=== PATIENT | male | born 1955 | race Caucasian/White ===

== ENCOUNTER 2016-08-31 09:40 | Outpatient (CLI) | payer MEDICAID ==
[2016-08-31 14:12] VITALS: BP 146/94
--- NOTE | 2016-08-31 14:14 | CARDIAC PROCEDURE NOTE ---
DATE OF SERVICE: 08/31/2016 00:00:00 PRIMARY CARE PHYSICIAN: YAMILETH Ellis. PROCEDURE: Treadmill stress test. PROCEDURE SYMPTOMS: Chest pain and dyspnea on exertion. CARDIAC RISK FACTORS: Age, hypertension, hyperlipidemia. PREVIOUS CARDIAC PROCEDURES: None. CURRENT SYMPTOMATOLOGY: The patient has COPD and we had him use albuterol inhaler prior to the start of test. CLINICAL HISTORY: A 61-year-old male without known coronary artery disease. INITIAL RESTING VITAL SIGNS: Blood pressure 182/96. Recheck 146/94, heart rate 76, height 70 inches, weight 261 pounds, BMI 37.5. PROCEDURE AND FINDINGS: The patient's identity and date verified. Consent signed. The patient performed treadmill exercise using a Osmin protocol completing 3 minutes, 36 seconds and completing an estimated work load of less than 4.5 metabolic equivalents. Maximal blood pressure was 210/98 mmHg with a heart rate of 115 beats per minute or 72% of maximum predicted heart rate for age. The blood pressure response to exercise was elevated. The patient stopped because of significant dyspnea. It took several minutes for his breathing to return to normal. The resting ECG demonstrated normal sinus rhythm with no abnormalities. Maximal ST segment depression was less than 0.5 mm and upsloping. He had an occasional PAC. FINAL IMPRESSION 1. No ST segment depression. 2. No chest pain. 3. Occasional premature atrial contraction (PAC). 4. Inadequate test. The patient failed to achieve 80-85% maximal heart rate due to dyspnea. Recommend pharmaceutical stress test. JOB #: [id number] EXT JOB #:[id number] [facility]
--- NOTE | 2016-09-22 13:05 | XRAY Report ---
There was no imaging performed for this exam. Procedure notes and results available in the EMR. CRISTI
== END 2016-08-31 09:41 | disposition home or self-care (01) ==
LOC: DI 09:40
PROVIDERS: ATTEND Nurse Practitioner Family
DX: I49.9 Cardiac arrhythmia, unspecified (principal); I10 Essential (primary) hypertension; E78.5 Hyperlipidemia, unspecified; J44.9 Chronic obstructive pulmonary disease, unspecified
CPT/HCPCS: 93017

== ENCOUNTER 2016-10-12 09:16 | Outpatient (CLI) | payer MEDICAID ==
--- NOTE | 2016-10-12 15:06 | CARDIAC PROCEDURE NOTE ---
DATE OF SERVICE: 10/12/2016 00:00:00 PRIMARY CARE PHYSICIAN: YAMILETH Ellis PROCEDURE: Pharmacologic stress test. PROCEDURE SYMPTOMS: Dyspnea on exertion and chest pain. CARDIAC RISK FACTORS: Include age and former smoker. PREVIOUS CARDIAC PROCEDURES: Include 08/31/2016 non-diagnostic exercise tolerance test in which the patient was unable to achieve 75% of maximum heart rate due to dyspnea. CURRENT SYMPTOMS: COPD without resting dyspnea and did not bring in inhaler. CLINICAL HISTORY: A 61-year-old male without known coronary artery disease. INITIAL RESTING VITAL SIGNS: Blood pressure 170/110, heart rate 71, height 70 inches, weight 261, BMI 37.5. PROCEDURE AND FINDINGS: Patient identity and date verified. Consent signed. Safety stop. Pharmacologic stress testing was performed with Lexiscan at a dose of 0.4 mg over 10 seconds. The heart rate increased to 88 beats per minute and blood pressure response was normal with blood pressure lowering to 142/96 during the stress procedure. The patient developed symptoms of nausea and acute dyspnea without wheezing. This subsided spontaneously over 5 minutes. The resting ECG demonstrated normal sinus rhythm with no abnormalities. Maximum ST segment depression was 0. No ectopy was seen. FINAL IMPRESSION 1. Negative stress electrocardiogram for ischemia by electrocardiographic criteria. 2. Equivocal stress test clinically for angina. 3. No ectopy. 4. Await myocardial perfusion scan results. JOB #: [id number] EXT JOB #:[id number] [facility]
--- NOTE | 2016-10-12 15:37 | Nuclear Medicine Report ---
EXAM: SINGLE-ISOTOPE PHARMACOLOGICAL STRESS TEST WITH REGADENOSON. SINGLE-ISOTOPE AND TWO-DAY REST/STRESS M YOCARDIAL PERFUSION SCANS WITH TOMOGRAPHIC IMAGING, QUANTITATIVE ANALYSIS, WALL MOTION ANALYSIS AND C ALCULATION OF EJECTION FRACTION. EXAM DATE: 10/12/2016 10:48 AM. CLINICAL HISTORY: Arrhythmia. COMPARISON: Prior chest CT, January 2014. TECHNIQUE: A pharmacological stress was performed with the infusion of 0.4 mg regadenoson per protocol. Accordin g to protocol, 10 mCi of Tc-99m sestamibi was injected for stress myocardial perfusion scan. Motion c orrection was applied when appropriate. The following day after the intravenous administration of 41 mCi of Tc-99m sestamibi, a rest myocardi al perfusion scan was done with tomography. Motion correction was applied when appropriate. Gated tomographic images were obtained for wall motion analysis and computation of left ventricular e jection fraction. FINDINGS: Stress perfusion images demonstrate no fixed or reversible perfusion defects. No other convincing perfusion abnormalities. No convincing evidence of transient ischemic dilatation. Wall motion analysis demonstrates normal The left ventricular end-diastolic volume is 112 cc. The left ventricular end-systolic volume is 45 c c. The left ventricular ejection fraction is calculated to be 60%. IMPRESSION: 1. No scintigraphic findings to indicate myocardial ischemia. Negative for infarct. 2. Left ventricular ejection fraction of 60%. 3. Normal segmental and global wall motion. 4. Normal left ventricular cavity size, no change with stress. [facility] Referring Provider Line: [phone] SITE ID: [id number]
== END 2016-10-12 09:17 | disposition home or self-care (01) ==
LOC: DI 09:16
PROVIDERS: ATTEND Nurse Practitioner Family
DX: I49.9 Cardiac arrhythmia, unspecified (principal)
CPT/HCPCS: 78452; 93017; A9500

== ENCOUNTER 2016-10-16 09:15 | Outpatient (CLI) | payer MEDICAID | END 2016-10-16 09:16 | disposition home or self-care (01) | LOC: LAB.S 09:15 | PROVIDERS: ATTEND Nurse Practitioner Family | DX: I10 Essential (primary) hypertension (principal) | CPT/HCPCS: 36415; 84132 ==

== ENCOUNTER 2017-01-15 08:26 | Outpatient (CLI) | payer MEDICAID ==
[2017-01-15 18:02] LABS: BASOPHILS # (AUTO) 0.1 10^3/uL (0.0-0.1); BASOPHILS % (AUTO) 0.8 %; EOSINOPHILS # (AUTO) 0.5 10^3/uL (0.0-0.7); EOSINOPHILS % (AUTO) 6.7 %; HCT - HEMATOCRIT 48.9 % (42.0-52.0); LYMPHOCYTES # (AUTO) 2.2 10^3/uL (1.5-3.5); LYMPHOCYTES % (AUTO) 27.1 %; MEAN CORPUSCULAR HEMOGLOBIN 29.6 pg (27.0-31.0); MEAN CORPUSCULAR HGB CONC 32.6 g/dL (32.0-36.0); MEAN CORPUSCULAR VOLUME 90.7 fL (80.0-94.0); MEAN PLATELET VOLUME 9.5 fL (7.4-11.4); MONOCYTES # (AUTO) 0.7 10^3/uL (0.0-1.0); MONOCYTES % (AUTO) 8.3 %; NEUTROPHILS # (AUTO) 4.7 10^3/uL (1.5-6.6); NEUTROPHILS % (AUTO) 57.1 %; NUCLEATED RED BLOOD CELLS AUTO 0.2 /100WBC; RED BLOOD COUNT 5.39 10^6/uL (4.70-6.10); RED CELL DISTRIBUTION WIDTH 14.5 % (12.0-15.0); UNCORRECTED WHITE BLOOD COUNT 8.2 x10^3/uL; WHITE BLOOD COUNT 8.2 x10^3/uL (4.8-10.8)
[2017-01-15 18:29] LABS: ALBUMIN/GLOBULIN RATIO 1.2 (1.0-2.2); BILIRUBIN,TOTAL 0.4 mg/dL (0.2-1.0); BUN - BLOOD UREA NITROGEN 16 mg/dL (6-20); CALCIUM 8.9 mg/dL (8.5-10.3); CARBON DIOXIDE - CO2 24 mmol/L (21-32); CHLORIDE 107 mmol/L (101-111); CHOL/HDL RATIO 4.2 (<5.0); CHOLESTEROL 161 mg/dL; CREATININE 0.9 mg/dL (0.6-1.2); GFR - MDRD 86 (>89); GLUCOSE 99 mg/dL (70-100); HDL CHOLESTEROL 38 mg/dL; LDL/HDL RATIO 2.7 (<3.6); POTASSIUM 4.2 mmol/L (3.5-5.0); SODIUM 140 mmol/L (135-145); TOTAL PROTEIN 7.3 g/dL (6.7-8.2); TRIGLYCERIDES 94 mg/dL; VLDL CHOLESTEROL 19 mg/dL
== END 2017-01-15 08:27 | disposition home or self-care (01) ==
LOC: LAB.S 08:26
PROVIDERS: ATTEND Nurse Practitioner Family
DX: I10 Essential (primary) hypertension (principal)
CPT/HCPCS: 36415; 80053; 80061; 84443; 85025

== ENCOUNTER 2017-03-27 10:32 | Emergency (ER) | payer MEDICAID ==
[2017-03-27] MEDS ORDERED: IPRATROPIUM/ALBUTEROL 3 ML NEB INH STA (12:24)
[2017-03-27] MEDS ORDERED: predniSONE 20 MG TABLET PO STA (12:28)
[2017-03-27] MEDS ORDERED: DOXYCYCLINE 100 MG TABLET PO STA (12:28)
--- NOTE | 2017-03-27 12:30 | ED Physician Documentation ---
PD HPI DYSPNEA - Stated complaint Stated Complaint: DIFFICULTY BREATHING - Chief complaint Chief Complaint: Resp - History obtained from History obtained from: Patient - History of Present Illness Timing - onset: Other (History of COPD from smoking, no longer smokes. At baseline he uses a long-acting beta agonist as well as a rescue inhaler. Over the last 2 days he developed a productive cough of clear sputum with increasing shortness of breath especially at night and when flat but not associated with fevers, chest pain, or pedal edema.) Review of Systems Constitutional: denies: Fever, Chills Nose: denies: Rhinorrhea / runny nose, Congestion Cardiac: denies: Chest pain / pressure, Palpitations Respiratory: reports: Dyspnea, Cough GI: denies: Abdominal Pain PD PAST MEDICAL HISTORY - Past Medical History Cardiovascular: Hypertension, High cholesterol Respiratory: Asthma, Emphysema, Sleep apnea Neuro: None Endocrine/Autoimmune: None GI: None : None HEENT: None Psych: None Musculoskeletal: Chronic back pain Derm: Psoriasis - Past Surgical History Past Surgical History: No - Present Medications Home Medications: Ambulatory Orders Medication Instructions Recorded Confirmed Doxycycline Hyclate 100 mg PO BID #14 tablet 03/27/17 predniSONE [Deltasone] 60 mg PO DAILY 5 Days tablet 03/27/17 - Allergies Allergies/Adverse Reactions: Allergies Allergy/AdvReac Type Severity Reaction Status Date / Time latex Allergy Unknown Verified 03/27/17 10:41 pollen extracts Allergy Respiratory Verified 03/27/17 10:41 - Social History Does the pt smoke?: No Smoking Status: Former smoker Does the pt drink ETOH?: No Does the pt have substance abuse?: No - Immunizations Immunizations are current?: Yes - POLST Patient has POLST: No PD ED PE NORMAL - Vitals Vital signs reviewed: Yes - General General: Alert and oriented X 3, No acute distress - HEENT HEENT: PERRL, EOMI - Neck Neck: Supple, no meningeal sign, No bony TTP - Cardiac Cardiac: RRR, No murmur - Respiratory Respiratory: No respiratory distress, Other (Wheezes and rhonchi throughout with moderate air motion) - Abdomen Abdomen: Non tender - Extremities Extremities: No edema, No calf tenderness / cord - Neuro Neuro: Alert and oriented X 3 - Psych Psych: Normal mood, Normal affect Results - Vitals Vitals: Vital Signs - 24 hr 03/27/17 03/27/17 10:35 12:44 Temperature 36.5 C Heart Rate 100 96 Respiratory 32 H 22 Rate Blood Pressure 164/108 H O2 Saturation 92 Oxygen O2 Source Room air Oxygen Flow Rate 2 - Rads (name of study) 2v chest Radiology: EMP read contemporaneously (stable hyperinflation, NAD) PD MEDICAL DECISION MAKING - ED course ED course: 61-year-old gentleman presents with COPD exacerbation. Examination and symptoms much improved after a DuoNeb here without hypoxemia or tachycardia. Departure - Departure Disposition: 01 Home, Self Care Clinical Impression: COPD exacerbation Condition: Good Record reviewed to determine appropriate education?: Yes Instructions: ED COPD Flare Prescriptions: Doxycycline Hyclate 100 mg PO BID #14 tablet predniSONE [Deltasone] 60 mg PO DAILY 5 Days tablet Comments: Call your doctor to arrange a follow-up appointment, make the next available appointment. In the interim, return anytime if worse or if new symptoms develop. Your blood pressure was elevated today on check into the emergency department. This does not mean that you have hypertension, it is a common phenomenon to come to the emergency department and have elevated blood pressure. I recommend that you see your primary care physician within the week to have it rechecked when you are feeling better.
--- NOTE | 2017-03-27 12:36 | XRAY Report ---
EXAM: CHEST RADIOGRAPHY EXAM DATE: 03/27/2017 12:24 PM. CLINICAL HISTORY: SOB. COMPARISON: 01/01/2014. TECHNIQUE: 2 views. FINDINGS: Lungs/Pleura: No focal opacities evident. No pleural effusion. No pneumothorax. Stable mild bilateral hyperinflation.. Mediastinum: Heart and mediastinal contours are unremarkable. Other: Thoracic spondylosis redemonstrated. IMPRESSION: 1. No definite acute abnormality of the chest. 2. Stable mild pulmonary hyperinflation. [facility] Referring Provider Line: [phone] SITE ID: [id number]
--- NOTE | 2017-03-27 12:36 | XRAY Preliminary Report ---
Exam: XR CHEST 2 VIEW X-RAY IMPRESSION: 1. No definite acute abnormality of the chest. 2. Stable mild pulmonary hyperinflation. [facility] SITE ID[id number]
[2017-03-27 13:08] VITALS: BP 115/99
== END 2017-03-27 13:12 | disposition home or self-care (01) ==
LOC: ED 10:32
DX: J44.1 Chronic obstructive pulmonary disease with (acute) exacerbation (principal); I10 Essential (primary) hypertension; E78.00 Pure hypercholesterolemia, unspecified; Z87.891 Personal history of nicotine dependence
CPT/HCPCS: 71046; 94640; 99283; 99284; A9270; J7512; J7620

== ENCOUNTER 2018-01-28 09:55 | Outpatient (CLI) | payer MEDICAID ==
[2018-01-28 18:41] LABS: CHOL/HDL RATIO 5.1 (<5.0); CHOLESTEROL 193 mg/dL; HDL CHOLESTEROL 38 mg/dL; LDL CHOLESTEROL,CALCULATED 131 mg/dL; LDL/HDL RATIO 3.4 (<3.6); VLDL CHOLESTEROL 24 mg/dL
== END 2018-01-28 23:59 | disposition home or self-care (01) ==
LOC: LAB.S 09:55
PROVIDERS: ATTEND Nurse Practitioner Family
DX: E78.5 Hyperlipidemia, unspecified (principal)
CPT/HCPCS: 36415; 80061; 83721

== ENCOUNTER 2018-09-30 11:33 | Emergency (ER) | payer MEDICAID ==
[2018-09-30] MEDS ORDERED: ALBUTEROL NEB 2.5 MG/3 ML INH STA (12:21)
--- NOTE | 2018-09-30 12:21 | ED Physician Documentation ---
PD HPI DYSPNEA - Stated complaint Stated Complaint: SOA - Chief complaint Chief Complaint: Resp - History obtained from History obtained from: Patient - History of Present Illness Timing - onset: Other (He has H/O COPD and ran out of Brio and albuterol nebulizer b/s of confusion at pharmacy and troubles with insurance. Now increase cough, dyspnea on exertion. No URI sx, no fevers/chills or CP.) Review of Systems Constitutional: denies: Fever, Chills Throat: denies: Dental pain / toothache, Sore throat Cardiac: denies: Chest pain / pressure, Palpitations, Pedal edema, Calf pain Respiratory: reports: Dyspnea, Cough. denies: Hemoptysis, Wheezing GI: denies: Abdominal Pain PD PAST MEDICAL HISTORY - Past Medical History Cardiovascular: Hypertension, High cholesterol Respiratory: Asthma, Emphysema, Sleep apnea Endocrine/Autoimmune: None GI: None : None HEENT: None Psych: None Musculoskeletal: Chronic back pain Derm: Psoriasis - Past Surgical History Past Surgical History: No - Present Medications Home Medications: Ambulatory Orders Medication Instructions Recorded Confirmed Doxycycline Hyclate 100 mg PO BID #14 tablet 03/27/17 predniSONE [Deltasone] 60 mg PO DAILY 5 Days tablet 03/27/17 Albuterol 2.5 mg INH Q4H PRN #30 neb 09/30/18 - Allergies Allergies/Adverse Reactions: Allergies Allergy/AdvReac Type Severity Reaction Status Date / Time latex Allergy Unknown Verified 09/30/18 11:44 pollen extracts Allergy Respiratory Verified 09/30/18 11:44 - Social History Does the pt smoke?: Yes Smoking Status: Former smoker Does the pt drink ETOH?: No Does the pt have substance abuse?: No - Family History Family history: reports: Non contributory - Immunizations Immunizations are current?: Yes - POLST Patient has POLST: No PD ED PE NORMAL - Vitals Vital signs reviewed: Yes - General General: Alert and oriented X 3, No acute distress - HEENT HEENT: PERRL, EOMI - Neck Neck: Supple, no meningeal sign, No bony TTP - Cardiac Cardiac: RRR, No murmur - Respiratory Respiratory: Other (slightly tachypneic, mildly rhonchorous and wheezy) - Abdomen Abdomen: Soft, Non tender - Back Back: No CVA TTP, No spinal TTP - Extremities Extremities: No edema, No calf tenderness / cord - Neuro Neuro: Alert and oriented X 3, Normal speech Results - Vitals Vitals: Vital Signs - 24 hr 09/30/18 09/30/18 11:38 11:57 Temperature 36.3 C L Heart Rate 75 72 Respiratory 24 21 Rate Blood Pressure 112/97 H 122/85 H O2 Saturation 97 95 Oxygen O2 Source Room air PD MEDICAL DECISION MAKING - ED course ED course: Lux has the brio and is ready to pickup He needed the albuterol which was written for. Departure - Departure Disposition: 01 Home, Self Care Clinical Impression: COPD exacerbation Condition: Good Record reviewed to determine appropriate education?: Yes Instructions: COPD Dc Prescriptions: Albuterol 2.5 mg INH Q4H PRN #30 neb PRN Reason: Wheezing Comments: Call your doctor to arrange a follow-up appointment, make the next available appointment. In the interim, return anytime if worse or if new symptoms develop.
[2018-09-30 13:29] VITALS: BP 127/73
== END 2018-09-30 13:15 | disposition home or self-care (01) ==
LOC: ED 11:33
DX: J44.1 Chronic obstructive pulmonary disease with (acute) exacerbation (principal); I10 Essential (primary) hypertension; Z87.891 Personal history of nicotine dependence
CPT/HCPCS: 99283

== ENCOUNTER 2019-03-06 16:35 | Outpatient (CLI) | payer MEDICAID ==
--- NOTE | 2019-03-07 08:44 | XRAY Report ---
Reason: BACK PAIN W/RADICULOPATHY Procedure Date: 03/06/2019 Accession Number: [id number] / [id number] Procedure: XR - Lumbar Spine Complete CPT Code: Final Report FULL RESULT: EXAM: LUMBOSACRAL SPINE RADIOGRAPHY EXAM DATE: 03/06/2019 04:58 PM. CLINICAL HISTORY: Back pain w/radiculopathy. COMPARISONS: None. TECHNIQUE: 5 views. FINDINGS: Alignment: Slight dextroscoliosis of the mid lower lumbar spine. Grade 1 anterolisthesis of L4 on L5 measuring 3 mm. Bones: Five [id number] lumbar vertebral bodies are present. No acute fracture or bony lesion. Multilevel degenerative osteophyte formation with bridging along the anterior and right lateral aspect of L1-L2 and L2-L3. Disks: Mild to moderate multilevel disk space narrowing throughout the lumbar spine, greatest at L2-L3, L4-L5 and L5-S1. Facets: Moderate to marked lumbar facet arthropathy. Sacroiliac Joints: Mild degenerative changes. Soft Tissues: No bowel obstruction. Lung bases are clear. IMPRESSION: 1. Mild to moderate multilevel intervertebral disk degenerative changes of the lumbar spine. 2. Grade 1 anterolisthesis of L4 on L5 likely due to facet arthropathy. 3. Lumbar facet arthropathy. [facility]
== END 2019-03-06 16:36 | disposition home or self-care (01) ==
LOC: DI 16:35
PROVIDERS: ATTEND Family Medicine
DX: M51.36 Other intervertebral disc degeneration, lumbar region (principal); M51.37 Other intervertebral disc degeneration, lumbosacral region; M47.816 Spondylosis without myelopathy or radiculopathy, lumbar region; M43.16 Spondylolisthesis, lumbar region
CPT/HCPCS: 72110

== ENCOUNTER 2020-02-23 08:57 | Outpatient (CLI) | payer MEDICAID ==
[2020-02-23 15:32] LABS: BASOPHILS # (AUTO) 0.1 10^3/uL (0.0-0.1); BASOPHILS % (AUTO) 0.5 %; EOSINOPHILS # (AUTO) 0.9 10^3/uL (0.0-0.7); EOSINOPHILS % (AUTO) 9.4 %; HGB - HEMOGLOBIN 15.3 g/dL (14.0-18.0); LYMPHOCYTES # (AUTO) 2.2 10^3/uL (1.5-3.5); LYMPHOCYTES % (AUTO) 23.8 %; MEAN CORPUSCULAR HEMOGLOBIN 29.4 pg (27.0-31.0); MEAN CORPUSCULAR HGB CONC 30.9 g/dL (32.0-36.0); MEAN PLATELET VOLUME 11.3 fL (7.4-11.4); MONOCYTES # (AUTO) 0.8 10^3/uL (0.0-1.0); NEUTROPHILS # (AUTO) 5.2 10^3/uL (1.5-6.6); NEUTROPHILS % (AUTO) 56.3 %; PLT - PLATELET COUNT 261 10^3/uL (130-450); RED BLOOD COUNT 5.21 10^6/uL (4.70-6.10); RED CELL DISTRIBUTION WIDTH 15.2 % (12.0-15.0); WHITE BLOOD COUNT 9.2 x10^3/uL (4.8-10.8)
[2020-02-23 16:06] LABS: ALBUMIN/GLOBULIN RATIO 1.1 (1.0-2.2); ALKALINE PHOSPHATASE 78 IU/L (42-121); ALT ALANINE AMINOTRANSFERASE 33 IU/L (10-60); AST ASPARTATE AMINOTRANSFERASE 23 IU/L (10-42); BILIRUBIN,TOTAL 0.4 mg/dL (0.2-1.0); BUN - BLOOD UREA NITROGEN 21 mg/dL (6-20); CARBON DIOXIDE - CO2 24 mmol/L (21-32); CHLORIDE 107 mmol/L (101-111); CHOL/HDL RATIO 4.1 (<5.0); CHOLESTEROL 161 mg/dL; CREATININE 1.1 mg/dL (0.6-1.2); GLUCOSE 129 mg/dL (70-100); HDL CHOLESTEROL 39 mg/dL; LDL CHOLESTEROL,CALCULATED 93 mg/dL; LDL/HDL RATIO 2.4 (<3.6); SODIUM 140 mmol/L (135-145); TOTAL PROTEIN 7.6 g/dL (6.7-8.2); VLDL CHOLESTEROL 29 mg/dL
[2020-02-23 20:14] LABS: HEMOGLOBIN A1c% 6.2 % (4.27-6.07)
== END 2020-02-23 08:58 | disposition home or self-care (01) ==
LOC: LAB.S 08:57
PROVIDERS: ATTEND Family Medicine
DX: K29.70 Gastritis, unspecified, without bleeding (principal); M19.90 Unspecified osteoarthritis, unspecified site; L40.9 Psoriasis, unspecified; L40.50 Arthropathic psoriasis, unspecified; J44.9 Chronic obstructive pulmonary disease, unspecified; E78.5 Hyperlipidemia, unspecified; G47.33 Obstructive sleep apnea (adult) (pediatric); E88.81 Metabolic syndrome and other insulin resistance
CPT/HCPCS: 36415; 80053; 80061; 83036; 83721; 84153; 84443; 85025

== ENCOUNTER 2020-06-30 10:49 | Outpatient (CLI) | payer MEDICARE, MEDICAID ==
[2020-06-30 14:48] LABS: BASOPHILS % (AUTO) 0.4 %; EOSINOPHILS # (AUTO) 0.5 10^3/uL (0.0-0.7); EOSINOPHILS % (AUTO) 5.2 %; HCT - HEMATOCRIT 48.4 % (42.0-52.0); HGB - HEMOGLOBIN 15.6 g/dL (14.0-18.0); LYMPHOCYTES # (AUTO) 2.5 10^3/uL (1.5-3.5); LYMPHOCYTES % (AUTO) 25.9 %; MEAN CORPUSCULAR HEMOGLOBIN 29.7 pg (27.0-31.0); MEAN CORPUSCULAR HGB CONC 32.2 g/dL (32.0-36.0); MEAN CORPUSCULAR VOLUME 92.2 fL (80.0-94.0); MEAN PLATELET VOLUME 10.6 fL (7.4-11.4); MONOCYTES # (AUTO) 0.6 10^3/uL (0.0-1.0); MONOCYTES % (AUTO) 5.9 %; NEUTROPHILS # (AUTO) 5.9 10^3/uL (1.5-6.6); NEUTROPHILS % (AUTO) 62.1 %; PLT - PLATELET COUNT 256 10^3/uL (130-450); RED BLOOD COUNT 5.25 10^6/uL (4.70-6.10); RED CELL DISTRIBUTION WIDTH 14.7 % (12.0-15.0); WHITE BLOOD COUNT 9.5 x10^3/uL (4.8-10.8)
[2020-06-30 15:14] LABS: ALBUMIN 4.2 g/dL (3.2-5.5); ALBUMIN/GLOBULIN RATIO 1.2 (1.0-2.2); ALKALINE PHOSPHATASE 61 IU/L (42-121); ALT ALANINE AMINOTRANSFERASE 41 IU/L (10-60); AST ASPARTATE AMINOTRANSFERASE 25 IU/L (10-42); BILIRUBIN,TOTAL 0.6 mg/dL (0.2-1.0); BUN - BLOOD UREA NITROGEN 23 mg/dL (6-20); CALCIUM 9.2 mg/dL (8.5-10.3); CARBON DIOXIDE - CO2 24 mmol/L (21-32); CHLORIDE 106 mmol/L (101-111); CREATININE 0.9 mg/dL (0.6-1.2); GFR - MDRD 85 (>89); GLUCOSE 119 mg/dL (70-100); POTASSIUM 4.2 mmol/L (3.5-5.0); SODIUM 138 mmol/L (135-145); TOTAL PROTEIN 7.7 g/dL (6.7-8.2)
[2020-06-30 15:59] LABS: CRP - C-REACTIVE PROTEIN < 1.0 mg/dL (0-1.0)
== END 2020-06-30 10:50 | disposition home or self-care (01) ==
LOC: LAB.S 10:49
PROVIDERS: ATTEND Internal Medicine Rheumatology
DX: L40.50 Arthropathic psoriasis, unspecified (principal)
CPT/HCPCS: 36415; 80053; 85025; 85651; 86140

== ENCOUNTER 2020-10-01 08:11 | Outpatient (CLI) | payer MEDICARE, MEDICAID ==
[2020-10-01 14:35] LABS: BASOPHILS % (AUTO) 0.6 %; EOSINOPHILS # (AUTO) 0.7 10^3/uL (0.0-0.7); EOSINOPHILS % (AUTO) 9.9 %; HCT - HEMATOCRIT 49.1 % (42.0-52.0); HGB - HEMOGLOBIN 15.5 g/dL (14.0-18.0); LYMPHOCYTES # (AUTO) 1.8 10^3/uL (1.5-3.5); LYMPHOCYTES % (AUTO) 25.5 %; MEAN CORPUSCULAR HEMOGLOBIN 30.7 pg (27.0-31.0); MEAN CORPUSCULAR HGB CONC 31.6 g/dL (32.0-36.0); MEAN CORPUSCULAR VOLUME 97.2 fL (80.0-94.0); MONOCYTES # (AUTO) 0.7 10^3/uL (0.0-1.0); MONOCYTES % (AUTO) 10.6 %; NEUTROPHILS # (AUTO) 3.7 10^3/uL (1.5-6.6); PLT - PLATELET COUNT 232 10^3/uL (130-450); RED BLOOD COUNT 5.05 10^6/uL (4.70-6.10); RED CELL DISTRIBUTION WIDTH 15.9 % (12.0-15.0)
[2020-10-01 14:59] LABS: ALBUMIN/GLOBULIN RATIO 1.1 (1.0-2.2); ALKALINE PHOSPHATASE 68 IU/L (42-121); ALT ALANINE AMINOTRANSFERASE 44 IU/L (10-60); AST ASPARTATE AMINOTRANSFERASE 33 IU/L (10-42); BILIRUBIN,TOTAL 0.7 mg/dL (0.2-1.0); BUN - BLOOD UREA NITROGEN 14 mg/dL (6-20); CALCIUM 8.8 mg/dL (8.5-10.3); CARBON DIOXIDE - CO2 25 mmol/L (21-32); CHLORIDE 105 mmol/L (101-111); CHOLESTEROL 184 mg/dL; GFR - MDRD 75 (>89); GLUCOSE 137 mg/dL (70-100); HDL CHOLESTEROL 37 mg/dL; LDL CHOLESTEROL,CALCULATED 121 mg/dL; LDL/HDL RATIO 3.3 (<3.6); POTASSIUM 4.1 mmol/L (3.5-5.0); SODIUM 139 mmol/L (135-145); TOTAL PROTEIN 7.8 g/dL (6.7-8.2); TRIGLYCERIDES 132 mg/dL; VLDL CHOLESTEROL 26 mg/dL
[2020-10-01 15:09] LABS: THYROID STIMULATING HORMONE 1.17 uIU/mL (0.34-5.60)
[2020-10-01 21:45] LABS: ESTIMATED AVERAGE GLUCOSE 137 mg/dL (70-100); HEMOGLOBIN A1c% 6.4 % (4.27-6.07)
== END 2020-10-01 08:12 | disposition home or self-care (01) ==
LOC: LAB.S 08:11
PROVIDERS: ATTEND Family Medicine
DX: E88.81 Metabolic syndrome and other insulin resistance (principal); E66.9 Obesity, unspecified; L40.50 Arthropathic psoriasis, unspecified; J44.9 Chronic obstructive pulmonary disease, unspecified; E78.5 Hyperlipidemia, unspecified; I10 Essential (primary) hypertension
CPT/HCPCS: 36415; 80053; 80061; 83036; 83721; 84443; 85025

== ENCOUNTER 2020-11-03 10:31 | Outpatient (CLI) | payer MEDICAID ==
[2020-11-03 14:47] LABS: BASOPHILS # (AUTO) 0.1 10^3/uL (0.0-0.1); BASOPHILS % (AUTO) 0.8 %; EOSINOPHILS # (AUTO) 0.5 10^3/uL (0.0-0.7); EOSINOPHILS % (AUTO) 7.9 %; HCT - HEMATOCRIT 50.6 % (42.0-52.0); LYMPHOCYTES # (AUTO) 1.5 10^3/uL (1.5-3.5); MEAN CORPUSCULAR HEMOGLOBIN 30.2 pg (27.0-31.0); MEAN CORPUSCULAR HGB CONC 31.6 g/dL (32.0-36.0); MEAN CORPUSCULAR VOLUME 95.7 fL (80.0-94.0); MEAN PLATELET VOLUME 11.1 fL (7.4-11.4); MONOCYTES # (AUTO) 0.8 10^3/uL (0.0-1.0); MONOCYTES % (AUTO) 12.3 %; NEUTROPHILS # (AUTO) 3.5 10^3/uL (1.5-6.6); NEUTROPHILS % (AUTO) 54.7 %; PLT - PLATELET COUNT 254 10^3/uL (130-450); RED BLOOD COUNT 5.29 10^6/uL (4.70-6.10); RED CELL DISTRIBUTION WIDTH 14.2 % (12.0-15.0); WHITE BLOOD COUNT 6.3 x10^3/uL (4.8-10.8)
[2020-11-03 15:28] LABS: ALBUMIN/GLOBULIN RATIO 1.1 (1.0-2.2); ALKALINE PHOSPHATASE 63 IU/L (42-121); ALT ALANINE AMINOTRANSFERASE 46 IU/L (10-60); AST ASPARTATE AMINOTRANSFERASE 30 IU/L (10-42); BILIRUBIN,TOTAL 0.5 mg/dL (0.2-1.0); BUN - BLOOD UREA NITROGEN 18 mg/dL (6-20); CALCIUM 9.2 mg/dL (8.5-10.3); CARBON DIOXIDE - CO2 24 mmol/L (21-32); CHLORIDE 111 mmol/L (101-111); GFR - MDRD 75 (>89); GLUCOSE 115 mg/dL (70-100); POTASSIUM 3.9 mmol/L (3.5-5.0); SODIUM 143 mmol/L (135-145); TOTAL PROTEIN 7.8 g/dL (6.7-8.2); URIC ACID 5.8 mg/dL (2.6-7.2)
[2020-11-03 16:04] LABS: CRP - C-REACTIVE PROTEIN < 1.0 mg/dL (0-1.0)
[2020-11-04 08:57] LABS: HEPATITIS C ANTIBODY NON-REACTIVE (NON-REACTIVE)
[2020-11-04 10:17] LABS: HEPATITIS B SURFACE ANTIGEN NON-REACTIVE (NON-REACTIVE)
[2020-11-08 02:36] LABS: NIL 1.79 IU/mL; TB1-NIL 6.63 IU/mL; TB2-NIL 6.62 IU/mL
== END 2020-11-03 10:32 | disposition home or self-care (01) ==
LOC: LAB.S 10:31
PROVIDERS: ATTEND Internal Medicine Rheumatology
DX: L40.50 Arthropathic psoriasis, unspecified (principal); Z11.59 Encounter for screening for other viral diseases
CPT/HCPCS: 36415; 80053; 84550; 85025; 85651; 86140; 86317; 86480; 86704; 86803; 87340

== ENCOUNTER 2020-11-12 09:03 | Outpatient (CLI) | payer MEDICARE, MEDICAID ==
--- NOTE | 2020-11-12 13:25 | XRAY Report ---
PROCEDURE: Chest 2 View X-Ray INDICATIONS: SUSPECTED TB TECHNIQUE: 2 view(s) of the chest. COMPARISON: None. FINDINGS: Surgical changes and devices: None. Lungs and pleura: No pleural effusions or pneumothorax. Left basilar atelectasis versus scarring no jeff. Lungs are clear. Mediastinum: Mediastinal contours are normal. Heart size is normal. Bones and chest wall: No suspicious bony abnormalities. Soft tissues appear unremarkable. IMPRESSION: 1. No acute cardiopulmonary abnormality. 2. No evidence of active tuberculosis. 3. Left basilar atelectasis versus scarring. Reviewed by: Johnnie Roberts on 11/12/2020 1:24 PM PDT Approved by: Johnnie Roberts on 11/12/2020 1:24 PM PDT Station ID: [id number]
== END 2020-11-12 09:04 | disposition home or self-care (01) ==
LOC: DI.S 09:03
PROVIDERS: ATTEND Internal Medicine Rheumatology
DX: R76.12 Nonspecific reaction to cell mediated immunity measurement of gamma interferon antigen response without active tuberculosis (principal); R91.8 Other nonspecific abnormal finding of lung field

== ENCOUNTER 2020-12-20 08:59 | Outpatient (CLI) | payer MEDICARE, MEDICAID ==
[2020-12-20 14:09] LABS: BASOPHILS # (AUTO) 0.1 10^3/uL (0.0-0.1); BASOPHILS % (AUTO) 0.9 %; EOSINOPHILS # (AUTO) 0.7 10^3/uL (0.0-0.7); EOSINOPHILS % (AUTO) 10.5 %; HGB - HEMOGLOBIN 15.4 g/dL (14.0-18.0); LYMPHOCYTES # (AUTO) 1.4 10^3/uL (1.5-3.5); LYMPHOCYTES % (AUTO) 21.4 %; MEAN CORPUSCULAR HEMOGLOBIN 29.2 pg (27.0-31.0); MEAN CORPUSCULAR HGB CONC 31.4 g/dL (32.0-36.0); MEAN PLATELET VOLUME 10.9 fL (7.4-11.4); MONOCYTES # (AUTO) 0.8 10^3/uL (0.0-1.0); MONOCYTES % (AUTO) 12.6 %; NEUTROPHILS # (AUTO) 3.6 10^3/uL (1.5-6.6); NEUTROPHILS % (AUTO) 53.9 %; PLT - PLATELET COUNT 240 10^3/uL (130-450); RED BLOOD COUNT 5.27 10^6/uL (4.70-6.10); RED CELL DISTRIBUTION WIDTH 14.8 % (12.0-15.0); WHITE BLOOD COUNT 6.7 x10^3/uL (4.8-10.8)
[2020-12-20 15:02] LABS: ALBUMIN 4.1 g/dL (3.2-5.5); ALBUMIN/GLOBULIN RATIO 1.3 (1.0-2.2); ALKALINE PHOSPHATASE 66 IU/L (42-121); ALT ALANINE AMINOTRANSFERASE 47 IU/L (10-60); AST ASPARTATE AMINOTRANSFERASE 32 IU/L (10-42); BILIRUBIN,TOTAL 0.6 mg/dL (0.2-1.0); BUN - BLOOD UREA NITROGEN 19 mg/dL (6-20); CALCIUM 8.8 mg/dL (8.5-10.3); CARBON DIOXIDE - CO2 24 mmol/L (21-32); CHLORIDE 107 mmol/L (101-111); CREATININE 0.9 mg/dL (0.6-1.2); GFR - MDRD 85 (>89); GLUCOSE 147 mg/dL (70-100); POTASSIUM 3.8 mmol/L (3.5-5.0); SODIUM 140 mmol/L (135-145); TOTAL PROTEIN 7.3 g/dL (6.7-8.2); URIC ACID 4.9 mg/dL (2.6-7.2)
[2020-12-20 15:13] LABS: CRP - C-REACTIVE PROTEIN < 1.0 mg/dL (0-1.0)
[2020-12-22 15:16] LABS: HEPATITIS B SURFACE ANTIGEN NON-REACTIVE (NON-REACTIVE); HEPATITIS C ANTIBODY NON-REACTIVE (NON-REACTIVE)
[2020-12-23 11:56] LABS: NIL 2.37 IU/mL; TB1-NIL 5.95 IU/mL; TB2-NIL 6.65 IU/mL
== END 2020-12-20 09:00 | disposition home or self-care (01) ==
LOC: LAB.S 08:59
PROVIDERS: ATTEND Internal Medicine Rheumatology
DX: L40.50 Arthropathic psoriasis, unspecified (principal); Z11.59 Encounter for screening for other viral diseases
CPT/HCPCS: 36415; 80053; 84550; 85025; 85651; 86140; 86317; 86480; 86704; 86803; 87340

== ENCOUNTER 2020-12-24 08:59 | Emergency (ER) | payer MEDICARE, MEDICAID ==
[2020-12-24] MEDS ORDERED: CHERRY SYRUP 10 ML UDC PO ONE (11:29)
[2020-12-24] MEDS ORDERED: DEXAMETHASONE 10 MG/ML VIAL PO STA (11:29)
--- NOTE | 2020-12-24 11:39 | ED Physician Documentation ---
PD HPI HEENT - Stated complaint Stated Complaint: BYNUM/CONGESTION/NAUSEA - Chief complaint Chief Complaint: Heent - History obtained from History obtained from: Patient - History of Present Illness Timing - onset: How many days ago (2) Timing - duration: Days (2) Timing - details: Gradual onset, Still present Location: Sinuses Improves: Medication Worsens: Everything Associated symptoms: Fever, Congestion, Rhinorrhea, Headache, Cough Similar symptoms before: Diagnosis (sinusitis) Recently seen: Not recently seen - Additional information Additional information: Previously well 65-year-old male who has a history of psoriatic arthritis and is on a biologic has a lifelong history of hayfever and sinus infections and over the past 2 days he has developed symptoms he thinks are consistent with an acute sinus infection. He has a headache starting the back of his head he has nasal congestion and a cough and chills. He is also concerned about the possibility of Covid and he brings in his immunization card showing 3 shots. Review of Systems Constitutional: reports: Fever, Chills Eyes: denies: Decreased vision Ears: denies: Ear pain Nose: reports: Rhinorrhea / runny nose, Congestion, Sinus pressure / pain Throat: denies: Sore throat Cardiac: denies: Chest pain / pressure, Palpitations Respiratory: reports: Cough. denies: Dyspnea GI: denies: Vomiting PD PAST MEDICAL HISTORY - Past Medical History Cardiovascular: Hypertension, High cholesterol Respiratory: Asthma, Emphysema, Sleep apnea Endocrine/Autoimmune: None GI: None : None HEENT: None Psych: None Musculoskeletal: Chronic back pain Derm: Psoriasis - Past Surgical History Past Surgical History: No - Present Medications Home Medications: Ambulatory Orders Medication Instructions Recorded Confirmed Doxycycline Hyclate 100 mg PO BID #14 tablet 03/27/17 predniSONE [Deltasone] 60 mg PO DAILY 5 Days tablet 03/27/17 Albuterol 2.5 mg INH Q4H PRN #30 neb 09/30/18 Amox/Clav 875/125 [Augmentin] 1 each PO Q12H #20 tablet 12/24/20 - Allergies Allergies/Adverse Reactions: Allergies Allergy/AdvReac Type Severity Reaction Status Date / Time latex Allergy Unknown Verified 12/24/20 09:29 pollen extracts Allergy Respiratory Verified 12/24/20 09:29 - Social History Does the pt smoke?: Yes Smoking Status: Former smoker Does the pt drink ETOH?: No Does the pt have substance abuse?: No - Immunizations Immunizations are current?: Yes - POLST Patient has POLST: No PD ED PE NORMAL - Vitals Vital signs reviewed: Yes (Hypertensive) - General General: Alert and oriented X 3, No acute distress, Well developed/nourished - HEENT HEENT: Atraumatic, PERRL, EOMI, Other (Both TMs are inflamed in the attic pharynx is with minimal erythema mild tenderness to the frontal sinuses) - Neck Neck: Supple, no meningeal sign, No bony TTP - Cardiac Cardiac: RRR, No murmur - Respiratory Respiratory: No respiratory distress, Clear bilaterally - Abdomen Abdomen: Normal bowel sounds, Soft, Non tender, Non distended, No organomegaly - Back Back: No CVA TTP, No spinal TTP - Derm Derm: Normal color, Warm and dry, No rash - Extremities Extremities: No deformity, No edema - Neuro Neuro: Alert and oriented X 3, chemical tester 2-12 intact, No motor deficit, No sensory deficit, Normal speech Eye Opening: Spontaneous Motor: Obeys Commands Verbal: Oriented GCS Score: 15 - Psych Psych: Normal mood, Normal affect Results - Vitals Vitals: Vital Signs - 24 hr 12/24/20 09:21 Temperature 36.4 C L Heart Rate 85 Respiratory 16 Rate Blood Pressure 149/105 H O2 Saturation 92 Oxygen O2 Source Room air PD MEDICAL DECISION MAKING - ED course Complexity details: reviewed results, re-evaluated patient, considered differential, d/w patient ED course: 65-year-old male with signs and symptoms he believes are related to sinusitis has had sinusitis in the number of times throughout his life. He has some inflammation of the attic bilaterally of the TMs and some frontal point is frontal sinus point tenderness. He is not having issues with breathing today and has clear lungs on exam. He is concerned about the possibility of Covid and that he is triple immunized and afebrile with normal lung exam. He could have low symptom Covid. A Covid swab is obtained as a send out. He is given a dose of decadraon and we will place him on a course of augmentin. Departure - Departure Disposition: 01 Home, Self Care Clinical Impression: Sinusitis Qualifiers: Sinusitis location: unspecified location Chronicity: acute Recurrence: recurrent Qualified Code(s): J01.91 - Acute recurrent sinusitis, unspecified Condition: Stable Instructions: ED Sinusitis Abx Tx Follow-Up: David Tyler MD [Primary Care Provider] - Prescriptions: Amox/Clav 875/125 [Augmentin] 1 each PO Q12H #20 tablet
[2020-12-24 11:57] VITALS: BP 134/95
== END 2020-12-24 12:02 | disposition home or self-care (01) ==
LOC: ED 08:59
DX: J01.91 Acute recurrent sinusitis, unspecified (principal); Z20.822 Contact with and (suspected) exposure to COVID-19; Z87.891 Personal history of nicotine dependence
CPT/HCPCS: 99283; A9270; U0004

== ENCOUNTER 2021-03-13 10:31 | Emergency (ER) | payer MEDICARE, MEDICAID ==
[2021-03-13 10:47] VITALS: BP 158/92
[2021-03-13] MEDS ORDERED: KETOROLAC 10 MG TABLET PO STA (10:50)
--- NOTE | 2021-03-13 10:51 | ED Physician Documentation ---
PD HPI ABD PAIN - Stated complaint Stated Complaint: RT SIDE PX - Chief complaint Chief Complaint: Abd Pain - History obtained from History obtained from: Patient - Additional information Additional information: 65-year-old gentleman with history of renal colic x1 presents with right flank pain since 730 this morning with severe but he only wants oral Toradol for that. Previous kidney stone was about 12 years ago, 3 mm and managed expectantly. He was nauseous prior to arrival but declines pain medication. Review of Systems Constitutional: denies: Fever, Chills GI: reports: Nausea. denies: Abdominal Pain, Vomiting : denies: Dysuria, Frequency, Hesitancy PD PAST MEDICAL HISTORY - Past Medical History Cardiovascular: Hypertension, High cholesterol Respiratory: Asthma, Emphysema, Sleep apnea Endocrine/Autoimmune: None GI: None : None HEENT: None Psych: None Musculoskeletal: Chronic back pain Derm: Psoriasis - Past Surgical History Past Surgical History: No - Present Medications Home Medications: Ambulatory Orders Medication Instructions Recorded Confirmed Doxycycline Hyclate 100 mg PO BID #14 tablet 03/27/17 predniSONE [Deltasone] 60 mg PO DAILY 5 Days tablet 03/27/17 Albuterol 2.5 mg INH Q4H PRN #30 neb 09/30/18 Amox/Clav 875/125 [Augmentin] 1 each PO Q12H #20 tablet 12/24/20 Ketorolac [Toradol] 10 mg PO Q6H PRN #25 tablet 03/13/21 Ondansetron Odt [Zofran] 4 mg TL Q6H PRN #10 tablet 03/13/21 - Allergies Allergies/Adverse Reactions: Allergies Allergy/AdvReac Type Severity Reaction Status Date / Time latex Allergy Unknown Verified 12/24/20 09:29 Opioids - Morphine Analogues Allergy Nausea Verified 03/13/21 10:43 pollen extracts Allergy Respiratory Verified 12/24/20 09:29 - Social History Does the pt smoke?: Yes Smoking Status: Former smoker Does the pt drink ETOH?: No Does the pt have substance abuse?: No - Immunizations Immunizations are current?: Yes - POLST Patient has POLST: No PD ED PE NORMAL - Vitals Vital signs reviewed: Yes - General General: Alert and oriented X 3, No acute distress - Abdomen Abdomen: Normal bowel sounds, Soft, Non tender - Back Back: No CVA TTP - Derm Derm: Normal color, Warm and dry - Extremities Extremities: No edema, No calf tenderness / cord - Neuro Neuro: Alert and oriented X 3, Normal speech Results - Vitals Vitals: Vital Signs - 24 hr 03/13/21 10:43 Temperature 36.4 C L Heart Rate 68 Respiratory 20 Rate Blood Pressure 158/92 H O2 Saturation 97 Oxygen O2 Source Room air - Labs Labs: Laboratory Tests 03/13/21 03/13/21 03/13/21 10:55 10:55 11:18 WBC 9.2 RBC 5.20 Hgb 15.3 Hct 47.4 MCV 91.2 MCH 29.4 MCHC 32.3 RDW 14.6 Plt Count 267 MPV 10.1 Neut # (Auto) 6.3 Lymph # (Auto) 1.3 L [place] # (Auto) 1.0 Eos # (Auto) 0.6 Baso # (Auto) 0.1 Absolute Nucleated RBC 0.00 Nucleated RBC % 0.0 Sodium 140 Potassium 4.1 Chloride 107 Carbon Dioxide 22 Anion Gap 11.0 BUN 16 Creatinine 1.1 Estimated GFR (MDRD) 67 L Glucose 139 H Calcium 9.1 Magnesium 2.0 Total Bilirubin 0.9 AST 27 ALT 37 Alkaline Phosphatase 70 Total Protein 7.6 Albumin 4.1 Globulin 3.5 Albumin/Globulin Ratio 1.2 Lipase 118 H Urine Color YELLOW Urine Clarity CLEAR Urine pH 5.0 Ur Specific [place] >=1.030 H Urine Protein NEGATIVE Urine Glucose (UA) NEGATIVE Urine Ketones NEGATIVE Urine Occult Blood NEGATIVE Urine Nitrite NEGATIVE Urine Bilirubin NEGATIVE Urine Urobilinogen 0.2 (NORMAL) Ur Leukocyte Esterase NEGATIVE Ur Microscopic Review NOT INDICATED Urine Culture Comments NOT INDICATED - Rads (name of study) CT a/p Radiology: EMP read contemporaneously PD MEDICAL DECISION MAKING - ED course ED course: 65-year-old gentleman with renal colic only wanted oral Toradol and subsequently some oral Zofran. Work-up demonstrates 4 mm obstructing stone on the right with multiple nephroliths and incidental note made of right greater than left inguinal hernias which are not bothering him. Departure - Departure Disposition: 01 Home, Self Care Clinical Impression: Renal colic Condition: Good Record reviewed to determine appropriate education?: Yes Instructions: ED Stone Renal W Colic Prescriptions: Ketorolac [Toradol] 10 mg PO Q6H PRN #25 tablet PRN Reason: Pain Ondansetron Odt [Zofran] 4 mg TL Q6H PRN #10 tablet PRN Reason: Nausea / Vomiting Comments: Your prescription was sent electronically to [facility] in [place]. Call your doctor to arrange a follow-up appointment, make the next available appointment. In the interim, return anytime if worse or if new symptoms develop. Talk with your doctor about a referral for general surgery consultation given the finding of the large right and small left inguinal hernias. Toradol can be rough on your kidneys, take it only when you need it. Strain your urine as discussed and if you pass a stone bring it to your doctor for examination. Discharge Date/Time: 03/13/21 12:34
[2021-03-13 11:02] LABS: BASOPHILS # (AUTO) 0.1 10^3/uL (0.0-0.1); BASOPHILS % (AUTO) 0.7 %; EOSINOPHILS # (AUTO) 0.6 10^3/uL (0.0-0.7); HCT - HEMATOCRIT 47.4 % (42.0-52.0); HGB - HEMOGLOBIN 15.3 g/dL (14.0-18.0); LYMPHOCYTES # (AUTO) 1.3 10^3/uL (1.5-3.5); LYMPHOCYTES % (AUTO) 13.7 %; MEAN CORPUSCULAR HEMOGLOBIN 29.4 pg (27.0-31.0); MEAN CORPUSCULAR HGB CONC 32.3 g/dL (32.0-36.0); MEAN CORPUSCULAR VOLUME 91.2 fL (80.0-94.0); MEAN PLATELET VOLUME 10.1 fL (7.4-11.4); MONOCYTES % (AUTO) 10.7 %; NEUTROPHILS # (AUTO) 6.3 10^3/uL (1.5-6.6); NEUTROPHILS % (AUTO) 68.4 %; PLT - PLATELET COUNT 267 10^3/uL (130-450); RED CELL DISTRIBUTION WIDTH 14.6 % (12.0-15.0); WHITE BLOOD COUNT 9.2 x10^3/uL (4.8-10.8)
[2021-03-13 11:15] LABS: ALBUMIN 4.1 g/dL (3.2-5.5); ALBUMIN/GLOBULIN RATIO 1.2 (1.0-2.2); BILIRUBIN,TOTAL 0.9 mg/dL (0.2-1.0); CALCIUM 9.1 mg/dL (8.5-10.3); CREATININE 1.1 mg/dL (0.6-1.2); POTASSIUM 4.1 mmol/L (3.5-5.0); TOTAL PROTEIN 7.6 g/dL (6.7-8.2)
[2021-03-13] MEDS ORDERED: ONDANSETRON ODT 4 MG TABLET TL STA (11:48)
[2021-03-13 11:55] LABS: BILIRUBIN,URINE NEGATIVE (NEGATIVE); GLUCOSE, URINE (UA) NEGATIVE (NEGATIVE); KETONES,URINE (UA) NEGATIVE (NEGATIVE); LEUKOCYTE ESTERASE, URINE NEGATIVE (NEGATIVE); NITRITE,URINE NEGATIVE (NEGATIVE); OCCULT BLOOD,URINE NEGATIVE (NEGATIVE); PROTEIN,URINE NEGATIVE (NEGATIVE); UROBILINOGEN,URINE 0.2 (NORMAL) E.U./dL (NORMAL)
[2021-03-13 12:00] LABS: CLARITY,URINE CLEAR (CLEAR)
--- NOTE | 2021-03-13 12:04 | CT Report ---
PROCEDURE: Abdomen/Pelvis WO INDICATIONS: r flank pain TECHNIQUE: Noncontrast 5 mm thick sections acquired from the diaphragms to the symphysis. 5 mm coronal and sagi ttal reformats were then performed. For radiation dose reduction, the following was used: automated exposure control, adjustment of mA and/or kV according to patient size. COMPARISON: None. FINDINGS: Image quality: Excellent. ABDOMEN: Lung bases: Bibasilar atelectasis/scarring without focal consolidation, pneumothorax, or pleural effu garret. Heart size is normal. Solid organs: Liver and spleen are normal in size. Gallbladder is decompressed, otherwise unremarka ble. Pancreas is normal in contours. No adrenal nodules. There is a 4 mm obstructing stone within t he distal right ureter just proximal to the UVJ. There is moderate right hydroureteronephrosis with i nflammation surrounding the kidney and collecting system. The left ureter is normal in course and jono iber. Punctate nonobstructing embolus are noted within the interpolar and inferior pole of the left k idney. Additional 4 mm calcification is noted within the interpolar region of the right kidney. Peritoneum and bowel: Stomach and small bowel are unremarkable. There is diffuse left colon diverticu losis without evidence of diverticulitis. Portions of the sigmoid colon are noted herniated within th e right inguinal hernia.. Nodes and vessels: No retroperitoneal or mesenteric adenopathy by size criteria. Aorta and inferior vena cava are normal in caliber. Miscellaneous: No ventral hernias. PELVIS: Genitourinary: Portions of the bladder or herniated within the right inguinal hernia. No focal wall t hickening versus resolving inflammation. Miscellaneous: Very large right inguinal hernia including fat and portions of the sigmoid colon and u rinary bladder. Left fat-containing inguinal hernia as well. Bones: No suspicious bony lesions. Degenerative changes of the spine and hips. No acute osseous abno rmality or aggressive appearing osseous lesion. Likely bone island noted within the left femoral head . No vertebral body compression fractures. IMPRESSION: Obstructing 4 mm calcification within the distal right ureter just proximal to the UVJ. This results in moderate hydroureteronephrosis. Additional nonobstructing nephroliths bilaterally. Large right inguinal hernia which contains fat and portions of the sigmoid colon and urinary bladder. Additional fat-containing left inguinal hernia. Diverticulosis. Reviewed by: Jose Leon DO on 03/13/2021 11:03 AM GOMEZ Approved by: Jose Leon DO on 03/13/2021 11:03 AM GOMEZ Station ID: [id number]
== END 2021-03-13 12:34 | disposition home or self-care (01) ==
LOC: ED 10:31
DX: N23 Unspecified renal colic (principal); I10 Essential (primary) hypertension; Z87.891 Personal history of nicotine dependence
CPT/HCPCS: 36415; 74176; 80053; 81003; 83690; 83735; 85025; 99283; 99284; A9270; Q0162; 81001; 87086

== ENCOUNTER 2023-02-16 01:18 | Inpatient (IN) | payer MEDICARE, MEDICAID ==
[2023-02-16] MEDS ORDERED: MAGNESIUM CITRATE 296 ML BOTTLE PO STA (02:04)
[2023-02-16] MEDS ORDERED: MAGNESIUM HYDROXIDE 2,400 MG/30 ML UDC PO STA (02:05)
[2023-02-16] MEDS ORDERED: SIMETHICONE CHEW 80 MG TABLET PO STA (02:06)
--- NOTE | 2023-02-16 02:18 | ED Physician Documentation ---
History of Present Illness - Stated complaint Stated Complaint: CONSTIPATION - Chief complaint Chief Complaint: Abd Pain - History obtained from History obtained from: Patient - Additonal information Additional information: 67-year-old man presents with constipation since Sunday with associated nausea and inability to sleep tonight. Patient states that his stomach is bloated and he has an urge to defecate but is unable to do so. Denies fever but does endorse some chills. Denies vomiting, back pain. denies alcohol use. Review of Systems Constitutional: reports: Chills. denies: Fever Cardiac: denies: Chest pain / pressure Respiratory: denies: Dyspnea GI: reports: Abdominal Pain, Nausea, Constipation. denies: Vomiting, Diarrhea, Bloody / black stool : denies: Dysuria, Frequency, Hematuria Musculoskeletal: denies: Back pain PD PAST MEDICAL HISTORY - Past Medical History Cardiovascular: Hypertension, High cholesterol Respiratory: Asthma, Emphysema, Sleep apnea Endocrine/Autoimmune: None GI: None : None HEENT: None Psych: None Musculoskeletal: Chronic back pain Derm: Psoriasis - Past Surgical History Past Surgical History: No - Present Medications Home Medications: Ambulatory Orders Medication Instructions Recorded Confirmed Doxycycline Hyclate 100 mg PO BID #14 tablet 03/27/17 predniSONE [Deltasone] 60 mg PO DAILY 5 Days tablet 03/27/17 Albuterol 2.5 mg INH Q4H PRN #30 neb 09/30/18 Amox/Clav 875/125 [Augmentin] 1 each PO Q12H #20 tablet 12/24/20 Ketorolac [Toradol] 10 mg PO Q6H PRN #25 tablet 03/13/21 Ondansetron Odt [Zofran] 4 mg TL Q6H PRN #10 tablet 03/13/21 Fluticasone/Vilanterol [Breo 1 puffs INH UD 02/16/23 02/16/23 Ellipta 200-25 Mcg Inhalr] Lisinopril [Zestril] 10 mg PO DAILY 02/16/23 02/16/23 Upadacitinib [Rinvoq] 15 mg PO DAILY 02/16/23 02/16/23 - Allergies Allergies/Adverse Reactions: Allergies Allergy/AdvReac Type Severity Reaction Status Date / Time latex Allergy Unknown Verified 02/16/23 01:38 Opioids - Morphine Analogues Allergy Nausea Verified 02/16/23 01:38 pollen extracts Allergy Respiratory Verified 02/16/23 01:38 - Social History Does the pt smoke?: No Smoking Status: Former smoker Does the pt drink ETOH?: No Does the pt have substance abuse?: No - Immunizations Immunizations are current?: Yes - POLST Patient has POLST: No PD ED PE NORMAL - Vitals Vital signs reviewed: Yes - General General: Alert and oriented X 3, No acute distress, Well developed/nourished - HEENT HEENT: Atraumatic, PERRL, EOMI - Abdomen Abdomen: Non tender, Other (distended, round abdomen) - Rectal Rectal: Other (brown stool in rectal vault on CHARLIE) - Back Back: No CVA TTP - Derm Derm: Normal color, Warm and dry Results - Vitals Vitals: Vital Signs - 24 hr 02/16/23 02/16/23 02/16/23 01:32 01:36 04:30 Temperature 37.1 C 37.1 C Heart Rate 80 80 104 H Respiratory 20 20 18 Rate Blood Pressure 167/105 H 167/105 H 177/96 H O2 Saturation 94 94 90 L Oxygen O2 Source Room air - Labs Labs: Laboratory Tests 02/16/23 02/16/23 02/16/23 03:50 03:50 03:50 WBC 14.8 H RBC 5.49 Hgb 16.2 Hct 50.8 MCV 92.5 MCH 29.5 MCHC 31.9 L RDW 14.6 Plt Count 263 MPV 10.1 Neut # (Auto) 12.9 H Lymph # (Auto) 0.8 L [place] # (Auto) 1.0 Eos # (Auto) 0.0 Baso # (Auto) 0.0 Absolute Nucleated RBC 0.00 Nucleated RBC % 0.0 Sodium 137 Potassium 4.5 Chloride 100 L Carbon Dioxide 24 Anion Gap 13.0 BUN 21 H Creatinine 1.0 Estimated GFR (MDRD) 75 L Glucose 200 H Lactic Acid 2.2 Calcium 9.7 Total Bilirubin 0.9 AST 28 ALT 31 Alkaline Phosphatase 61 Total Protein 8.1 Albumin 4.4 Globulin 3.7 Albumin/Globulin Ratio 1.2 Lipase 14 02/16/23 06:30 WBC RBC Hgb Hct MCV MCH MCHC RDW Plt Count MPV Neut # (Auto) Lymph # (Auto) [place] # (Auto) Eos # (Auto) Baso # (Auto) Absolute Nucleated RBC Nucleated RBC % Sodium Potassium Chloride Carbon Dioxide Anion Gap BUN Creatinine Estimated GFR (MDRD) Glucose Lactic Acid 2.6 H Calcium Total Bilirubin AST ALT Alkaline Phosphatase Total Protein Albumin Globulin Albumin/Globulin Ratio Lipase PD Medical Decision Making - ED course ED course: 67yM presents with constipation X 5 days and nausea with chills. cbc, abdominal panel, ua , lactate ordered along with some IV fluids and stool regimen. Mineral oil enema and milk of magnesia failed to produce a stool. will try PEG. Patient had no relief with PEG and persistent abdominal pain so labwork was ordered. he had lactate 2.[address] a/p showing diverticulitis with microperforation without abscess as well as R inguinal hernia. no beds available for admission so plan to endorse to incoming daytime ED MD at 7am shift change for admission pending beds. d/w Dr. Dale, surgeon plastics fabrication supervisor who agrees patient will benefit from medical admission with surgical consult. Departure - Departure Clinical Impression: Constipation, Abdominal pain, Diverticulitis, Hernia Condition: Stable Instructions: ED Constipation Comments: You were seen in the emergency department for constipation and abdominal pain. Please follow-up with your primary care provider and return to the emergency department if you have any new or worsening symptoms or other concerns. Forms: PCP List
[2023-02-16] MEDS ORDERED: polyethylene glycoL 3350 17 GM PACKET PO STA (03:21)
[2023-02-16] MEDS ORDERED: SODIUM CHLORIDE 0.9% 1,000 ML IV STA (03:28)
[2023-02-16 04:02] LABS: BASOPHILS % (AUTO) 0.3 %; EOSINOPHILS % (AUTO) 0.3 %; HCT - HEMATOCRIT 50.8 % (42.0-52.0); HGB - HEMOGLOBIN 16.2 g/dL (14.0-18.0); LYMPHOCYTES # (AUTO) 0.8 10^3/uL (1.5-3.5); LYMPHOCYTES % (AUTO) 5.4 %; MEAN CORPUSCULAR HEMOGLOBIN 29.5 pg (27.0-31.0); MEAN CORPUSCULAR HGB CONC 31.9 g/dL (32.0-36.0); MEAN CORPUSCULAR VOLUME 92.5 fL (80.0-94.0); MEAN PLATELET VOLUME 10.1 fL (7.4-11.4); MONOCYTES % (AUTO) 6.6 %; NEUTROPHILS # (AUTO) 12.9 10^3/uL (1.5-6.6); PLT - PLATELET COUNT 263 10^3/uL (130-450); RED BLOOD COUNT 5.49 10^6/uL (4.70-6.10); RED CELL DISTRIBUTION WIDTH 14.6 % (12.0-15.0); WHITE BLOOD COUNT 14.8 x10^3/uL (4.8-10.8)
[2023-02-16 04:57] LABS: ALBUMIN 4.4 g/dL (3.2-5.5)
[2023-02-16 05:04] LABS: ALBUMIN/GLOBULIN RATIO 1.2 (1.0-2.2); BILIRUBIN,TOTAL 0.9 mg/dL (0.2-1.0); CALCIUM 9.7 mg/dL (8.5-10.3); POTASSIUM 4.5 mmol/L (3.5-4.5); TOTAL PROTEIN 8.1 g/dL (6.4-8.9)
[2023-02-16] MEDS ORDERED: iohexoL-300 100 ML VIAL IVP ONE (05:55)
[2023-02-16] MEDS ORDERED: PIPERACILLIN/TAZOBACTAM 3.375 GM in SODIUM CHLORIDE 0.9% MINIBAG 100 ML IV STA (06:21)
[2023-02-16] MEDS ORDERED: MORPHINE 2 MG/ML CARPUJECT IVP STA (06:24)
[2023-02-16] MEDS ORDERED: KETOROLAC 15 MG/ML VIAL IVP STA (06:32)
--- NOTE | 2023-02-16 07:55 | CT Report ---
PROCEDURE: ABDOMEN/PELVIS W INDICATIONS: lower abdominal pain, constipation CONTRAST: Omni 300 100ml TECHNIQUE: After the administration of intravenous contrast, 5 mm thick sections acquired from the diaphragms to the symphysis. 5 mm thick coronal and sagittal reformats were acquired. For radiation dose reducti on, the following was used: automated exposure control, adjustment of mA and/or kV according to chester ent size. COMPARISON: CT abdomen and pelvis, 03/13/2021. FINDINGS: Image quality: Excellent. Lung bases and heart: Bibasilar atelectasis. Small hiatal hernia. Liver: Hepatic steatosis. No solid mass. Gallbladder and biliary tree: Gallbladder is contracted. No gallstones. No biliary dilation. Spleen: No splenomegaly. Pancreas: No pancreatic ductal dilation. Adrenals: No adrenal nodule. Kidneys and ureters: There are couple of nonobstructive stones in the inferior pole of the right kidn ey. No hydronephrosis. No renal cystic lesion which requires follow up. No solid mass. Bowel and peritoneum: No bowel distension. . There are numerous colonic diverticula. There is focal t hickening and stranding in sigmoid colon consistent with acute diverticulitis. There is a small amoun t of free fluid. No free air. Lymph nodes: No central or retroperitoneal adenopathy. Vessels: No infrarenal aortic aneurysm. PELVIS Reproductive organs: Unremarkable. Bladder: No abnormal wall thickening, accounting for underdistension. Pelvic lymph nodes: No pelvic adenopathy by size criteria. Bones: No aggressive osseous abnormality. Degenerative disc and facet disease in lumbar spine. Modera te central canal stenosis. Other: No significant ventral or inguinal hernia. IMPRESSION: 1. Acute sigmoid diverticulitis. 2. Nonobstructive right renal calculi. 3. Hepatic steatosis. Reviewed by: Jerson Harris MD on 02/16/2023 7:54 AM PST Approved by: Jerson Harris MD on 02/16/2023 7:54 AM PST Station ID: [id number]
--- NOTE | 2023-02-16 08:50 | ED Physician Documentation ---
ED Addendum - Addendum Addendum: 02/16/23 08:50 02/16/23 08:47 The patient is doing well on change of shift and I evaluated him just now. He states his pain is minimal and is comfortable for now. He has had 2 reasonably large bowel movements and he feels that that is helping quite a bit as well. His CT scan did show diverticulitis with microperforation. The intention is for him to be a hospitalized for further care and evaluation. At this point no beds available but will see the how they open through the day. The degree of this seems low enough at the moment to not warrant immediate transfer and is not urgently surgical. Will be treated with medication IV and fluids etc. At this point the patient would be boarded in the ER until bed space is available or he is resolved enough for discharge over the next couple of days. He did have concerns over his cat and dog at home. [place] get her to take care of his pets. 02/16/23 08:49
[2023-02-16 08:59] LABS: BILIRUBIN,URINE NEGATIVE (NEGATIVE); GLUCOSE, URINE (UA) 100 mg/dL (NEGATIVE); KETONES,URINE (UA) NEGATIVE (NEGATIVE); LEUKOCYTE ESTERASE, URINE NEGATIVE (NEGATIVE); NITRITE,URINE NEGATIVE (NEGATIVE); OCCULT BLOOD,URINE TRACE-INTA (NEGATIVE); PH,URINE 5.5 PH (5.0-7.5); PROTEIN,URINE 100 mg/dL (NEGATIVE); UROBILINOGEN,URINE 1 (NORMAL) E.U./dL (NORMAL)
[2023-02-16 09:10] LABS: CLARITY,URINE CLEAR (CLEAR)
[2023-02-16 09:22] LABS: WBC,URINE 0-3 /HPF (0-3)
[2023-02-16 09:23] LABS: BACTERIA,URINE Few /HPF (None Seen); CRYSTALS,URINE 0-2 Uric Acid /LPF; RBC,URINE 0-5 /HPF (0-5); SQUAMOUS EPITHELIAL CELL,UR FEW Squamous (<= Few)
--- NOTE | 2023-02-16 13:15 | CONSULTATION NOTE ---
Referring Provider Name of Referring Provider:: Clara Titus MD Consult Date: 02/16/23 Chief Complaint - Chief Complaint Chief Complaint: Left lower quadrant pain consistent with diverticulitis History of Present Illness - Admitted From Admitted From:: Not admittedseen in the emergency department - History Obtained From Records Reviewed: Yes History obtained from: Patient Exam Limitations: None - History of Present Illness HPI Comment/Other: This patient is a 67-year-old gentleman who symptoms started on Sunday evening and consisted of abdominal pain and distention. The abdominal pain was primarily located in the left lower quadrant and he stated that he was distended and having difficulty having a bowel movement. This morning he has had 2 bowel movements and is significantly better. He is normally constipated with very hard to firm stools. We discussed keeping his stool softer with the addition of fiber and fluids. He specifically mention Metamucil and I added prunes to the discussion and he vocalized understanding. There has been no unexpected or unwarranted weight loss, melena, hematochezia, or hematemesis. He states that the surgeon saw him at the surgical clinic here in [place] couple years ago that stated that he must have his inguinal hernias fixed but the patient deferred at that time and and stated definitively that that surgeon was wrong. His inguinal hernias essentially do not bother him. History - Past Medical History Cardiovascular: reports: Hypertension, High cholesterol Respiratory: reports: Asthma, Emphysema, Sleep apnea Endocrine/Autoimmune: reports: None GI: reports: None : reports: None HEENT: reports: None Psych: reports: None Musculoskeletal: reports: Chronic back pain Derm: reports: Psoriasis MRSA Hx?: No - POLST Patient has POLST: No Meds/Allgy - Home Medications Home Medications: Ambulatory Orders Medication Instructions Recorded Confirmed Doxycycline Hyclate 100 mg PO BID #14 tablet 03/27/17 predniSONE [Deltasone] 60 mg PO DAILY 5 Days tablet 03/27/17 Albuterol 2.5 mg INH Q4H PRN #30 neb 09/30/18 Amox/Clav 875/125 [Augmentin] 1 each PO Q12H #20 tablet 12/24/20 Ketorolac [Toradol] 10 mg PO Q6H PRN #25 tablet 03/13/21 Ondansetron Odt [Zofran] 4 mg TL Q6H PRN #10 tablet 03/13/21 Fluticasone/Vilanterol [Breo 1 puffs INH UD 02/16/23 02/16/23 Ellipta 200-25 Mcg Inhalr] Lisinopril [Zestril] 10 mg PO DAILY 02/16/23 02/16/23 Upadacitinib [Rinvoq] 15 mg PO DAILY 02/16/23 02/16/23 - Allergies Allergies/Adverse Reactions: Allergies Allergy/AdvReac Type Severity Reaction Status Date / Time latex Allergy Unknown Verified 02/16/23 01:38 Opioids - Morphine Analogues Allergy Nausea Verified 02/16/23 01:38 pollen extracts Allergy Respiratory Verified 02/16/23 01:38 Review of Systems - Constitutional Constitutional: denies: Fatigue, Fever, Chills - Eyes Eyes: denies: Pain - Ears, Nose & Throat Ears, Nose & Throat: denies: Ear pain - Respiratory Respiratory: denies: Cough - Gastrointestinal Gastrointestinal: reports: Abdominal pain, Abdominal distention, Constipation. denies: Diarrhea, Black stools, Bloody stools - Genitourinary Genitourinary: denies: Dysuria - Musculoskeletal Musculoskeletal: reports: Back pain. denies: Muscle pain - Neurological Neurological: denies: General weakness, Focal weakness - Psychiatric Psychiatric: denies: Depression, Anxiety Exam - Vital Signs Reviewed Vital Signs: Yes Vital Signs: Vital Signs x48h Pulse Resp BP Pulse Ox 02/16/23 11:00 80 18 163/92 H 93 02/16/23 09:00 88 20 136/86 H 92 02/16/23 07:33 105 H 18 155/90 H 92 - Physical Exam General Appearance: positive: No acute distress (Patient evaluated in room 8 at [facility]'s emergency department. He is standing during the examination.) Eyes Bilateral: positive: No lid inflammation, Conjunctivae nml, No scleral icterus ENT: positive: No signs of dehydration Neck: positive: Trachea midline Respiratory: positive: Chest non-tender, No respiratory distress, Breath sounds nml Cardiovascular: positive: Regular rate & rhythm, No murmur, No gallop Abdomen: positive: Nml bowel sounds, Other (Obese and as such cannot evaluate for hepato or splenomegaly). negative: Tenderness, Guarding, Rebound Skin: positive: Color nml, No rash, Warm, Dry Extremities: positive: Non-tender, Nml appearance Neurologic/Psychiatric: positive: Oriented x3, Motor nml, Sensation nml, Mood/affect nml Conclusion/Plan - Lab Results Lab results reviewed: Yes Fish Bones: 02/16/23 03:50 02/16/23 03:50 - Diagnostic Imaging Results Diagnostic Imaging Results: positive: Final report reviewed, Read independently - Other Other Results/Comments: Assessment: Uncomplicated diverticulitis Plan: IV antibiotics watching for clinical improvement. Keep his stool soft with fiber and fluids (also include prunes) should the patient worsen then colon resection can be entertained. I expect that the patient will continue to improve and as long as he keep his stool soft he may not run into this problem again in the future. With regards to his inguinal hernias he is asymptomatic and surgery should be deferred. Should his symptoms worsen then we can revisit this issue. I do not have any records of recent colonoscopy and this should likely be scheduled 6 weeks out from his hospitalization. I asked him to let me know if there is any way we can make his stay here [facility] more comfortable to please let us know when he stated that he would. CPT 51863
--- NOTE | 2023-02-16 14:27 | HISTORY & PHYSICAL EXAMINATION ---
Chief Complaint - Chief Complaint Chief Complaint: Constipation x5 days, nausea, chills History of Present Illness - Admitted From Admitted From:: ED - History Obtained From History obtained from: ED provider and the patient - History of Present Illness HPI Comment/Other: This is a 67-year-old male with a history of morbid obesity, DALI, psoriatic arthritis and hypertension. He presents with complaints of constipation for 5 days and slowly progressively worsening diffuse abdominal pain. He denied vomiting but has had nausea starting the last 2 days. There was no diarrhea. He had no fever but did have chills. He presented to the ER today with these complaints and initially had management with trying to relieve his constipation with a mineral oil enema, and he had 6 tiny liquidy brown BMs. This did not relieve his pain. Labs came back showing an elevated white count of 14 and Lactic Acid level of 2.2, then repeat was 2.[address] abdomen/pelvis done. This showed that he has diverticulitis of the sigmoid colon with microperforation, since free air is seen. He received iv Toradol and iv Morphine for pain, IV Zofran and got 1 dose of Zosyn IV. A surgery consult was obtained and the surgeon felt he does not have a "surgical abdomen", but has unc omplicated diverticulitis and advised admission and antibiotics and bowel rest. The ED provider then spoke to me about this patient. I discussed CODE STATUS with this patient and he wants to be a DNR. History - Past Medical History Cardiovascular: reports: Hypertension, High cholesterol Respiratory: reports: Asthma, Emphysema, Sleep apnea Endocrine/Autoimmune: reports: None GI: reports: None : reports: None HEENT: reports: None Psych: reports: None Musculoskeletal: reports: Chronic back pain Derm: reports: Psoriasis MRSA Hx?: No - Family & Social History Living arrangement: At home Living Situation: Alone Social History Notes: He lives alone. His daughter lives in the area. 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 He is active. He quit smoking 12 years ago and quit drinking alcohol 30 years ago. He denies drug use. - Substance History Use: Uses substance without health or social issues: NONE - POLST Patient has POLST: No Meds/Allgy - Home Medications Home Medications: Ambulatory Orders Medication Instructions Recorded Confirmed Fluticasone/Vilanterol [Breo 1 each IH DAILY 02/16/23 02/16/23 Ellipta 200-25 Mcg INH] Lisinopril [Zestril] 10 mg PO DAILY 02/16/23 02/16/23 Meloxicam 15 mg PO DAILY PRN 02/16/23 02/16/23 Upadacitinib [Rinvoq ER] 15 mg PO DAILY 02/16/23 02/16/23 - Allergies Allergies/Adverse Reactions: Allergies Allergy/AdvReac Type Severity Reaction Status Date / Time latex Allergy Unknown Verified 02/16/23 01:38 Opioids - Morphine Analogues Allergy Nausea Verified 02/16/23 01:38 pollen extracts Allergy Respiratory Verified 02/16/23 01:38 Review of Systems - Constitutional Constitutional: reports: Chills, Poor appetite - Gastrointestinal Gastrointestinal: reports: Abdominal pain, Abdominal distention, Constipation, Nausea - Genitourinary Genitourinary: reports: Other (He has inguinal hernia, has known about this, was told it needs surgery some day.) - All Other Systems All Other Systems: reports: Reviewed and negative Exam - Vital Signs Reviewed Vital Signs: Yes Vital Signs: Vital Signs x48h Temp Pulse Resp BP Pulse Ox 02/16/23 13:00 37.0 C 80 16 150/90 H 92 02/16/23 11:00 80 18 163/92 H 93 02/16/23 09:00 88 20 136/86 H 92 02/16/23 07:33 105 H 18 155/90 H 92 - Physical Exam General Appearance: positive: Mild distress (from abd pain) Eyes Bilateral: positive: Normal inspection, EOMI, No lid inflammation ENT: positive: ENT inspection nml, No signs of dehydration Neck: positive: Nml inspection, Other (Obese and cannot rule out JVD) Respiratory: positive: No respiratory distress, Breath sounds nml Cardiovascular: positive: Regular rate & rhythm, No murmur (Distant heart sounds due to morbid obesity) Abdomen: positive: Abnml bowel sounds (Diminished bowel sounds in all quadrants.), Other (Distended versus obese. Firm. Tender to moderate palpation diffusely. No guarding or rebound. I cannot rule out organomegaly due to obesity.) Skin: positive: Warm, Dry Extremities: positive: Non-tender, No pedal edema Neurologic/Psychiatric: positive: Oriented x3, CN's nml (2-12), Motor nml Conclusion/Plan - Problem List (1) Acute diverticulitis Conclusion/Plan: As per findings on CT abdomen pelvis and he has an elevated white count, has no fever but did have chills. Plan: IV antiemetics as needed IV pain meds as needed. Patient has allergies to opioids therefore he is requesting Toradol and will also give IV Ofirmev for pain Begin IV fluids Begin bowel rest by ordering clear liquid diet Continue empiric IV Zosyn (2) Perforated bowel Conclusion/Plan: As per CT imaging result Patient had a surgical evaluation and the general surgeon felt that the patient does not have a "surgical abdomen". Plan: As in #1. (3) Morbid obesity with BMI of 40.0-44.9, adult Conclusion/Plan: This complicates all of his care and will likely prolong his hospitalization. (4) HTN (hypertension) Conclusion/Plan: Plan: Await the reconciled med list. I will change the necessary meds to IV form (5) Psoriatic arthritis Conclusion/Plan: Plan: I will hold his oral med Rinvoq while here - Lab Results Lab results reviewed: Yes Fish Bones: 02/16/23 03:50 02/16/23 03:50 - Diagnostic Imaging Results Diagnostic Imaging Results: positive: Final report reviewed
[2023-02-16] MEDS ORDERED: ACETAMINOPHEN 1,000 MG/100 ML 1,000 MG/100 ML BAG IV PRN (14:39)
[2023-02-16] MEDS: ACETAMINOPHEN 325 MG TABLET PO PRN (15:10)
[2023-02-16] MEDS: PIPERACILLIN/TAZOBACTAM 3.375 GM in SODIUM CHLORIDE 0.9% MINIBAG 100 ML IV SCH ×2 (15:10→23:01)
--- NOTE | 2023-02-16 17:43 | PHARMACY PROGRESS NOTE ---
- Best Possible Medication History Admit Date and Time: 02/16/23 1420 Processed by: Pharmacy Medication History completed: Yes Patient Interview: Completed Secondary Source(s): Insurance records As the person ultimately responsible for medication therapy, providers are able to order a medication from an existing home medication list in [facility] via the "Reconcile Routine" prior to Confirmation of that medication by director of sales support. Such practice is discouraged except when the physician, in their clinical judgment, deems that a medical need exists for a medication without regard to previous use.
[2023-02-16] MEDS: KETOROLAC 30 MG/ML VIAL IVP PRN (21:22)
[2023-02-16] MEDS: SODIUM CHLORIDE FLUSH 0.9% 10 ML SYRINGE IVP SCH (22:00)
[2023-02-16] MEDS: SODIUM CHLORIDE FLUSH 0.9% 10 ML SYRINGE IVP PRN (23:04)
[2023-02-17] MEDS: SODIUM CHLORIDE FLUSH 0.9% 10 ML SYRINGE IVP SCH ×3 (00:24→16:02)
[2023-02-17 06:02] LABS: BASOPHILS % (AUTO) 0.2 %; EOSINOPHILS # (AUTO) 0.1 10^3/uL (0.0-0.7); EOSINOPHILS % (AUTO) 0.8 %; HCT - HEMATOCRIT 45.5 % (42.0-52.0); HGB - HEMOGLOBIN 14.6 g/dL (14.0-18.0); LYMPHOCYTES # (AUTO) 0.9 10^3/uL (1.5-3.5); LYMPHOCYTES % (AUTO) 5.5 %; MEAN CORPUSCULAR HEMOGLOBIN 29.6 pg (27.0-31.0); MEAN CORPUSCULAR HGB CONC 32.1 g/dL (32.0-36.0); MEAN CORPUSCULAR VOLUME 92.3 fL (80.0-94.0); MEAN PLATELET VOLUME 10.1 fL (7.4-11.4); MONOCYTES # (AUTO) 0.9 10^3/uL (0.0-1.0); NEUTROPHILS # (AUTO) 13.5 10^3/uL (1.5-6.6); PLT - PLATELET COUNT 228 10^3/uL (130-450); RED BLOOD COUNT 4.93 10^6/uL (4.70-6.10); WHITE BLOOD COUNT 15.5 x10^3/uL (4.8-10.8)
[2023-02-17] MEDS: PIPERACILLIN/TAZOBACTAM 3.375 GM in SODIUM CHLORIDE 0.9% MINIBAG 100 ML IV SCH ×3 (06:22→22:47)
[2023-02-17 06:25] LABS: CALCIUM 9.2 mg/dL (8.5-10.3); CREATININE 1.1 mg/dL (0.6-1.3); MAGNESIUM 2.2 mg/dL (1.7-2.3); PHOSPHORUS 2.6 mg/dL (2.5-5.0); POTASSIUM 3.9 mmol/L (3.5-4.5)
[2023-02-17] MEDS: FORMOTEROL FUMARATE NEB 20 MCG/2 ML INH SCH ×2 (06:53→18:42)
[2023-02-17] MEDS: BUDESONIDE 0.5 MG/2 ML NEB INH SCH ×2 (06:53→18:43)
[2023-02-17] MEDS ORDERED: [UNRECOGNIZED DRUG - MIXTURE] IH SCH (09:00)
--- NOTE | 2023-02-17 13:04 | PROVIDER PROGRESS NOTE ---
Subjective - General Admit Date: 02/16/23 - Review of Systems Wound/Incisions: positive: Other (None.) General: positive: No symptoms HEENT: positive: No symptoms Pulmonary: positive: No symptoms Cardiovascular: positive: No symptoms Gastrointestinal: positive: Abdominal pain (More upper abdominal but the patient states that his abdominal pain is 50% better than it was yesterday.) Genitourinary: positive: No symptoms Musculoskeletal: positive: No symptoms Skin: positive: No symptoms Psychiatric: positive: No symptoms All Other Systems: positive: Reviewed and negative Objective - Patient Data Reviewed Vital Signs: Yes Vital Signs: Vital Signs x48h Temp Pulse Pulse Resp BP Pulse Ox 02/17/23 08:00 37.1 C 80 18 144/93 H 92 02/17/23 06:57 74 16 Weight: Weight 02/15/23 02/16/23 02/17/23 23:59 23:59 23:59 Weight (kg) 125 kg Intake & Output: Intake and Output Totals x24h 02/15/23 02/16/23 02/17/23 23:59 23:59 23:59 Intake Total 1600.0 550 Balance 1600.0 550 - Lab Results Lab Results: 02/17/23 05:37 02/17/23 05:37 Other Lab Results: Lab Results x24hrs 02/17/23 02/17/23 02/16/23 Range/Units 05:37 05:37 14:26 WBC 15.5 H (4.8-10.8) x10^3/uL RBC 4.93 (4.70-6.10) 10^6/uL Hgb 14.6 (14.0-18.0) g/dL Hct 45.5 (42.0-52.0) % MCV 92.3 (80.0-94.0) fL MCH 29.6 (27.0-31.0) pg MCHC 32.1 (32.0-36.0) g/dL RDW 15.0 (12.0-15.0) % Plt Count 228 (130-450) 10^3/uL MPV 10.1 (7.4-11.4) fL Neut # (Auto) 13.5 H (1.5-6.6) 10^3/uL Lymph # (Auto) 0.9 L (1.5-3.5) 10^3/uL [place] # (Auto) 0.9 (0.0-1.0) 10^3/uL Eos # (Auto) 0.1 (0.0-0.7) 10^3/uL Baso # (Auto) 0.0 (0.0-0.1) 10^3/uL Absolute Nucleated RBC 0.00 x10^3/uL Nucleated RBC % 0.0 /100WBC Sodium 138 (135-145) mmol/L Potassium 3.9 (3.5-4.5) mmol/L Chloride 104 (101-111) mmol/L Carbon Dioxide 28 (21-32) mmol/L Anion Gap 6.0 (6-13) BUN 19 (6-20) mg/dL Creatinine 1.1 (0.6-1.3) mg/dL Estimated GFR (MDRD) 67 L (>89) Glucose 144 H (74-104) mg/dL Lactic Acid 1.2 (0.5-2.2) mmol/L Calcium 9.2 (8.5-10.3) mg/dL Phosphorus 2.6 (2.5-5.0) mg/dL Magnesium 2.2 (1.7-2.3) mg/dL - Current Medications Current Medications: Current Medications Generic Name Dose Route Start Last Admin Trade Name Freq PRN Reason Stop Dose Admin Acetaminophen 650 mg 02/16/23 14:20 02/16/23 15:10 Acetaminophen 325 Mg Tablet PO 650 mg Q4HR PRN Administration Pain 1 to 4, or Fever Budesonide 0.5 mg 02/17/23 07:00 02/17/23 06:53 Budesonide 0.5 Mg/2 Ml Neb INH 0.5 mg RTBID DELMAR Administration Formoterol Fumarate 20 mcg 02/17/23 07:00 02/17/23 06:53 Formoterol Fumarate Neb 20 Mcg/2 Ml INH 20 mcg RTBID DELMAR Administration Piperacillin Sod/Tazobactam 100 mls @ 25 mls/hr 02/16/23 15:00 02/17/23 10:40 Sod 3.375 gm/ Sodium Chloride IV Infused Q8H DELMAR Infusion Acetaminophen 1,000 mg in 100 mls @ 400 mls/hr 02/16/23 14:39 02/16/23 22:20 Acetaminophen IV Infused Q6HR PRN Infusion Moderate Pain (Level 4-6) Ketorolac Tromethamine 30 mg 02/16/23 19:49 02/16/23 21:22 Ketorolac 30 Mg/Ml Vial IVP 02/21/23 19:48 30 mg Q6HR PRN Administration Severe Pain (Level 7-10) Sodium Chloride 10 ml 02/16/23 14:20 02/16/23 23:04 Sodium Chloride Flush 0.9% 10 Ml Syringe IVP 10 ml PRN PRN Administration NEEDED PER PROVIDER ORDERS Sodium Chloride 10 ml 02/16/23 17:00 02/17/23 11:12 Sodium Chloride Flush 0.9% 10 Ml Syringe IVP Not Given 0100,0900,1700 DELMAR - Physical Exam Wound/Incisions: positive: Other (None.) General Appearance: positive: No acute distress Eyes Bilateral: positive: No lid inflammation, Conjunctivae nml, No scleral icterus ENT: positive: No signs of dehydration Neck: positive: Trachea midline Respiratory: positive: Chest non-tender, No respiratory distress, Breath sounds nml Cardiovascular: positive: Regular rate & rhythm, No murmur, No gallop Abdomen: positive: Tenderness (Mild located epigastric), Abnml bowel sounds (Slightly decreased.), Other (Obese.). negative: Guarding, Rebound Skin: positive: Color nml, Warm, Dry Extremities: positive: Nml appearance Neurologic/Psychiatric: positive: Oriented x3, Motor nml, Sensation nml, Mood/affect nml (Examined and his case discussed in the presence of his daughter and son-in-law.) ABX Reporting Has patient been on IV antibiotics over the past 48 hours?: Yes Impression/Plan - Problem List Problem List: Acute uncomplicated diverticulitis. I des on the white board exactly what diverticulitis was and explained the difference between diverticulosis and diverticulitis. The patient clinically is markedly improved and he was yesterday although his white blood cell count is slightly elevated today but I think this is mathematically the same. He is tolerating a clear liquid diet without any nausea or vomiting. We also discussed his hernias and the use of a truss to help prevent the need for surgery. I explained that surgery is only indicated if the patient is symptomatic. Both he and his family vocalized an understanding. As such I would continue the course of antibiotics and discharge the patient home when his white count is normal, abdominal pain is resolved, and the patient is tolerating a diet. I also explained the need to for weight loss as well as to keep his stool soft with fiber and fluids following his discharge. We discussed weight loss strategies. CPT 03954
[2023-02-17] MEDS: traMADol 50 MG TABLET PO PRN ×2 (16:01→22:51)
--- NOTE | 2023-02-17 18:55 | PROVIDER PROGRESS NOTE ---
Assessment/Plan - Problem List (1) Acute diverticulitis Assessment/Plan: As per findings on CT abdomen pelvis and he had an elevated white count of 14, has no fever but did have chills. His nausea is controlled and he is tolerating clear liquids He still has abdominal pain and feels bloated and gassy but has not had a BM. His WBC has risen to 15.5 (all labs were reviewed) Plan: Cont IV antiemetics as needed Cont IV pain meds as needed. Patient has allergies to opioids therefore he is requesting Toradol and Tramadol and will also give IV Ofirmev for pain Cont clear liquid diet and IV fluids I will order prune juice, do not want to give an enema with a micro-perforation present I will order Simethicone for the bloating and gas Continue empiric IV Zosyn (2) Perforated bowel Conclusion/Plan: As per CT imaging result Patient had a surgical evaluation and the general surgeon felt that the patient does not have a "surgical abdomen". Plan: As in #1. (3) Morbid obesity with BMI of 40.0-44.9, adult Conclusion/Plan: This complicates all of his care and will likely prolong his hospitalization. (4) Hyperglycemia Conclusion/Plan: His glu on labs are 144-200. Given his morbid obesity, he may have Type 2 DM. Plan: Will check his A1c with a.m. labs (5) HTN (hypertension) Conclusion/Plan: Plan: Will resume his Lisinopril with parameters for holding it (6) Psoriatic arthritis Conclusion/Plan: Plan: I told him we will hold his oral med Rinvoq while here - Current Meds Current Meds: Current Medications Generic Name Dose Route Start Last Admin Trade Name Freq PRN Reason Stop Dose Admin Acetaminophen 650 mg 02/16/23 14:20 02/16/23 15:10 Acetaminophen 325 Mg Tablet PO 650 mg Q4HR PRN Administration Pain 1 to 4, or Fever Budesonide 0.5 mg 02/17/23 07:00 02/17/23 18:43 Budesonide 0.5 Mg/2 Ml Neb INH 0.5 mg RTBID DELMAR Administration Formoterol Fumarate 20 mcg 02/17/23 07:00 02/17/23 18:42 Formoterol Fumarate Neb 20 Mcg/2 Ml INH 20 mcg RTBID DELMAR Administration Piperacillin Sod/Tazobactam 100 mls @ 25 mls/hr 02/16/23 15:00 02/17/23 14:48 Sod 3.375 gm/ Sodium Chloride IV 25 mls/hr Q8H DELMAR Administration Acetaminophen 1,000 mg in 100 mls @ 400 mls/hr 02/16/23 14:39 02/16/23 22:20 Acetaminophen IV Infused Q6HR PRN Infusion Moderate Pain (Level 4-6) Ketorolac Tromethamine 30 mg 02/16/23 19:49 02/16/23 21:22 Ketorolac 30 Mg/Ml Vial IVP 02/21/23 19:48 30 mg Q6HR PRN Administration Severe Pain (Level 7-10) Sodium Chloride 10 ml 02/16/23 14:20 02/16/23 23:04 Sodium Chloride Flush 0.9% 10 Ml Syringe IVP 10 ml PRN PRN Administration NEEDED PER PROVIDER ORDERS Sodium Chloride 10 ml 02/16/23 17:00 02/17/23 16:02 Sodium Chloride Flush 0.9% 10 Ml Syringe IVP 10 ml 0100,0900,1700 DELMAR Administration Tramadol HCl 50 mg 02/16/23 19:49 02/17/23 16:01 Tramadol 50 Mg Tablet PO 50 mg Q4HR PRN Administration Moderate Pain (Level 4-6) - Lab Result Fish Bone Diagrams: 02/17/23 05:37 02/17/23 05:37 - Additional Planning My Orders: My Active Orders 02/16/23 19:49 Ketorolac Inj (30Mg) [Toradol Inj (30Mg)] 30 mg IVP Q6HR PRN traMADol [Ultram] 50 mg PO Q4HR PRN 02/17/23 06:57 Nebulizer/MDI Tx. [RC] .BID 02/17/23 07:00 Budesonide [Pulmicort] 0.5 mg INH RTBID Formoterol Fumarate [Perforomist] 20 mcg INH RTBID 02/17/23 07:22 hydrALAZINE INJ [Apresoline Inj] 10 mg IVP Q8H PRN 02/17/23 11:50 Shower [RC] PRN 02/18/23 05:00 BMP - BASIC METABOLIC PANEL [CHEM] DAILYLAB CBC - COMP BLD CT W/AUTO DIFF [HEME] DAILYLAB 02/19/23 05:00 BMP - BASIC METABOLIC PANEL [CHEM] DAILYLAB CBC - COMP BLD CT W/AUTO DIFF [HEME] DAILYLAB Subjective - Subjective Patient Reports: Feeling Better (No nausea or vomitimg but no change in his diffuse abd pain and feels bloated and gassy today) Objective Vital Signs: Vital Signs - 24 hr 02/17/23 02/17/23 02/17/23 00:24 06:57 08:00 Temperature 37.1 C 37.1 C Heart Rate 74 Heart Rate [ 71 80 Monitoring electrodes] Respiratory 20 16 18 Rate Blood Pressure 129/83 H 144/93 H [Right Brachial artery] O2 Saturation 92 92 02/17/23 02/17/23 15:02 18:40 Temperature 37.8 C Heart Rate 82 Heart Rate [ 86 Monitoring electrodes] Respiratory 14 20 Rate Blood Pressure 144/87 H [Right Brachial artery] O2 Saturation 92 Oxygen O2 Source Room air I&O (Last 24 Hrs): Intake and Output Totals x24h 02/15/23 02/16/23 02/17/23 23:59 23:59 23:59 Intake Total 1600.0 990 Balance 1600.0 990 General: Alert, No acute distress HEENT: Mucous membr. moist/pink Neck: Supple Neuro: Alert, Non Focal Cardiovascular: Regular rate Respiratory: No respiratory distress Abdomen: Other (Obese, distended and hypertympanic, normal bowel sounds) Extremities: No clubbing, No edema, No tenderness/swelling - Results Results: Laboratory Results WBC 15.5 x10^3/uL (4.8-10.8) H 02/17/23 05:37 RBC 4.93 10^6/uL (4.70-6.10) 02/17/23 05:37 Hgb 14.6 g/dL (14.0-18.0) 02/17/23 05:37 Hct 45.5 % (42.0-52.0) 02/17/23 05:37 MCV 92.3 fL (80.0-94.0) 02/17/23 05:37 MCH 29.6 pg (27.0-31.0) 02/17/23 05:37 MCHC 32.1 g/dL (32.0-36.0) 02/17/23 05:37 RDW 15.0 % (12.0-15.0) 02/17/23 05:37 Plt Count 228 10^3/uL (130-450) 02/17/23 05:37 MPV 10.1 fL (7.4-11.4) 02/17/23 05:37 Neut # (Auto) 13.5 10^3/uL (1.5-6.6) H 02/17/23 05:37 Lymph # (Auto) 0.9 10^3/uL (1.5-3.5) L 02/17/23 05:37 [place] # (Auto) 0.9 10^3/uL (0.0-1.0) 02/17/23 05:37 Eos # (Auto) 0.1 10^3/uL (0.0-0.7) 02/17/23 05:37 Baso # (Auto) 0.0 10^3/uL (0.0-0.1) 02/17/23 05:37 Absolute Nucleated RBC 0.00 x10^3/uL 02/17/23 05:37 Nucleated RBC % 0.0 /100WBC 02/17/23 05:37 Sodium 138 mmol/L (135-145) 02/17/23 05:37 Potassium 3.9 mmol/L (3.5-4.5) 02/17/23 05:37 Chloride 104 mmol/L (101-111) 02/17/23 05:37 Carbon Dioxide 28 mmol/L (21-32) 02/17/23 05:37 Anion Gap 6.0 (6-13) 02/17/23 05:37 BUN 19 mg/dL (6-20) 02/17/23 05:37 Creatinine 1.1 mg/dL (0.6-1.3) 02/17/23 05:37 Estimated GFR (MDRD) 67 (>89) L 02/17/23 05:37 Glucose 144 mg/dL (74-104) H 02/17/23 05:37 Lactic Acid 1.2 mmol/L (0.5-2.2) 02/16/23 14:26 Calcium 9.2 mg/dL (8.5-10.3) 02/17/23 05:37 Phosphorus 2.6 mg/dL (2.5-5.0) 02/17/23 05:37 Magnesium 2.2 mg/dL (1.7-2.3) 02/17/23 05:37 Total Bilirubin 0.9 mg/dL (0.2-1.0) 02/16/23 03:50 AST 28 IU/L (10-42) 02/16/23 03:50 ALT 31 IU/L (10-60) 02/16/23 03:50 Alkaline Phosphatase 61 IU/L (42-121) 02/16/23 03:50 Total Protein 8.1 g/dL (6.4-8.9) 02/16/23 03:50 Albumin 4.4 g/dL (3.2-5.5) 02/16/23 03:50 Globulin 3.7 g/dL (2.1-4.2) 02/16/23 03:50 Albumin/Globulin Ratio 1.2 (1.0-2.2) 02/16/23 03:50 Lipase 14 U/L (11-82) 02/16/23 03:50 Urine Color DARK YELLOW 02/16/23 08:51 Urine Clarity CLEAR (CLEAR) 02/16/23 08:51 Urine pH 5.5 PH (5.0-7.5) 02/16/23 08:51 Ur Specific [place] 1.010 (1.002-1.030) 02/16/23 08:51 Urine Protein 100 mg/dL (NEGATIVE) H 02/16/23 08:51 Urine Glucose (UA) 100 mg/dL (NEGATIVE) H 02/16/23 08:51 Urine Ketones NEGATIVE mg/dL (NEGATIVE) 02/16/23 08:51 Urine Occult Blood TRACE-INTA (NEGATIVE) 02/16/23 08:51 Urine Nitrite NEGATIVE (NEGATIVE) 02/16/23 08:51 Urine Bilirubin NEGATIVE (NEGATIVE) 02/16/23 08:51 Urine Urobilinogen 1 (NORMAL) E.U./dL (NORMAL) 02/16/23 08:51 Ur Leukocyte Esterase NEGATIVE (NEGATIVE) 02/16/23 08:51 Urine RBC 0-5 /HPF (0-5) 02/16/23 08:51 Urine WBC 0-3 /HPF (0-3) 02/16/23 08:51 Ur Squamous Epith Cells FEW Squamous (<= Few) 02/16/23 08:51 Urine Crystals 0-2 Uric Acid /LPF 02/16/23 08:51 Urine Bacteria Few /HPF (None Seen) 02/16/23 08:51 Ur Microscopic Review INDICATED 02/16/23 08:51 Urine Culture Comments NOT INDICATED 02/16/23 08:51
[2023-02-17] MEDS ORDERED: SIMETHICONE 40 MG/0.6 ML 15 ML BOTTLE PO PRN (19:03)
[2023-02-17] MEDS: SODIUM CHLORIDE FLUSH 0.9% 10 ML SYRINGE IVP PRN (22:48)
[2023-02-18] MEDS: SODIUM CHLORIDE FLUSH 0.9% 10 ML SYRINGE IVP SCH ×4 (00:41→23:40)
[2023-02-18] MEDS: traMADol 50 MG TABLET PO PRN ×2 (02:47→23:45)
[2023-02-18 06:22] LABS: BASOPHILS % (AUTO) 0.1 %; EOSINOPHILS # (AUTO) 0.3 10^3/uL (0.0-0.7); EOSINOPHILS % (AUTO) 1.9 %; HCT - HEMATOCRIT 44.8 % (42.0-52.0); HGB - HEMOGLOBIN 14.5 g/dL (14.0-18.0); LYMPHOCYTES # (AUTO) 0.9 10^3/uL (1.5-3.5); LYMPHOCYTES % (AUTO) 6.4 %; MEAN CORPUSCULAR HEMOGLOBIN 29.5 pg (27.0-31.0); MEAN CORPUSCULAR HGB CONC 32.4 g/dL (32.0-36.0); MEAN CORPUSCULAR VOLUME 91.1 fL (80.0-94.0); MEAN PLATELET VOLUME 10.6 fL (7.4-11.4); NEUTROPHILS # (AUTO) 11.8 10^3/uL (1.5-6.6); PLT - PLATELET COUNT 255 10^3/uL (130-450); RED BLOOD COUNT 4.92 10^6/uL (4.70-6.10); RED CELL DISTRIBUTION WIDTH 14.7 % (12.0-15.0)
[2023-02-18] MEDS: FORMOTEROL FUMARATE NEB 20 MCG/2 ML INH SCH ×2 (06:26→17:34)
[2023-02-18] MEDS: BUDESONIDE 0.5 MG/2 ML NEB INH SCH ×2 (06:26→17:34)
[2023-02-18 06:43] LABS: CALCIUM 9.2 mg/dL (8.5-10.3); MAGNESIUM 2.1 mg/dL (1.7-2.3); POTASSIUM 4.2 mmol/L (3.5-4.5)
[2023-02-18] MEDS: PIPERACILLIN/TAZOBACTAM 3.375 GM in SODIUM CHLORIDE 0.9% MINIBAG 100 ML IV SCH ×3 (06:50→23:39)
[2023-02-18] MEDS ORDERED: NON FORMULARY MED (Lisinopril [Zestril] 10 MG Tablet) PO SCH (09:00)
[2023-02-18 09:03] LABS: ESTIMATED AVERAGE GLUCOSE 143 mg/dL (70-100); HEMOGLOBIN A1c% 6.6 % (4.27-6.07)
[2023-02-18] MEDS: lisinopriL 5 MG TABLET PO SCH (09:22)
--- NOTE | 2023-02-18 10:11 | PROVIDER PROGRESS NOTE ---
Assessment/Plan - Problem List (1) Acute diverticulitis Assessment/Plan: As per findings on CT abdomen pelvis and he had an elevated white count of 14, had no fever but did have chills. His nausea is controlled and he is tolerating pureed food He abdominal pain and bloating are better His WBC improved: 14.8>> 15.5>> 14 today (all labs were reviewed) Plan: Cont IV antiemetics as needed Cont IV pain meds as needed. Patient has allergies to opioids therefore he is requesting Toradol and Tramadol and will also give IV Ofirmev for pain Will keep diet pureed and thin liquids since Surgeon today advised not advancing diet yet I ordered prune juice and also Simethicone for the bloating and gas Continue empiric IV Zosyn (2) Perforated bowel Conclusion/Plan: As per CT imaging result Patient had a surgical evaluation and the general surgeon felt that the patient does not have a "surgical abdomen". Plan: As in #1. (3) Morbid obesity with BMI of 40.0-44.9, adult Conclusion/Plan: This complicates all of his care and will likely prolong his hospitalization. (4) Borderline DM Conclusion/Plan: His glu on labs are 144-200. His A1c came back at 6.6 consistent with Borderline DM Type 2, and he has morbid obesity, so Metabolic syndrome Plan: Will start a DM diet He needs DM teaching, will order Forming Machine Adjuster consult (today is Sun and Chemical Recovery Operator is on vacation until Sun, back on 02/21) (5) HTN (hypertension) Conclusion/Plan: I resumed his Lisinopril with parameters for holding it (6) Psoriatic arthritis Conclusion/Plan: Plan: I told him we will hold his oral med Rinvoq while here - Current Meds Current Meds: Current Medications Generic Name Dose Route Start Last Admin Trade Name Freq PRN Reason Stop Dose Admin Acetaminophen 650 mg 02/16/23 14:20 02/16/23 15:10 Acetaminophen 325 Mg Tablet PO 650 mg Q4HR PRN Administration Pain 1 to 4, or Fever Budesonide 0.5 mg 02/17/23 07:00 02/18/23 06:26 Budesonide 0.5 Mg/2 Ml Neb INH 0.5 mg RTBID DELMAR Administration Formoterol Fumarate 20 mcg 02/17/23 07:00 02/18/23 06:26 Formoterol Fumarate Neb 20 Mcg/2 Ml INH 20 mcg RTBID DELMAR Administration Piperacillin Sod/Tazobactam 100 mls @ 25 mls/hr 02/16/23 15:00 02/18/23 06:50 Sod 3.375 gm/ Sodium Chloride IV 25 mls/hr Q8H DELMAR Administration Acetaminophen 1,000 mg in 100 mls @ 400 mls/hr 02/16/23 14:39 02/16/23 22:20 Acetaminophen IV Infused Q6HR PRN Infusion Moderate Pain (Level 4-6) Ketorolac Tromethamine 30 mg 02/16/23 19:49 02/16/23 21:22 Ketorolac 30 Mg/Ml Vial IVP 02/21/23 19:48 30 mg Q6HR PRN Administration Severe Pain (Level 7-10) Lisinopril 10 mg 02/18/23 09:00 02/18/23 09:22 Lisinopril 5 Mg Tablet PO 10 mg DAILY DELMAR Administration Sodium Chloride 10 ml 02/16/23 14:20 02/17/23 22:48 Sodium Chloride Flush 0.9% 10 Ml Syringe IVP 10 ml PRN PRN Administration NEEDED PER PROVIDER ORDERS Sodium Chloride 10 ml 02/16/23 17:00 02/18/23 00:41 Sodium Chloride Flush 0.9% 10 Ml Syringe IVP 10 ml 0100,0900,1700 DELMAR Administration Tramadol HCl 50 mg 02/16/23 19:49 02/18/23 02:47 Tramadol 50 Mg Tablet PO 50 mg Q4HR PRN Administration Moderate Pain (Level 4-6) - Lab Result Fish Bone Diagrams: 02/18/23 05:36 02/18/23 05:36 - Additional Planning My Orders: My Active Orders 02/17/23 11:50 Shower [RC] PRN 02/17/23 18:56 Miscellaenous Nursing Order [RC] QSHIFT 02/18/23 08:21 Simethicone [Mylicon] 80 mg PO Q6HR PRN 02/18/23 09:00 lisinopriL [Zestril] 10 mg PO DAILY 02/18/23 Lunch DIET [Dysphagia - Puree] [DIET] 02/18/23 Dinner DIET [Dysphagia - Minced and Moist] [DIET] 02/19/23 05:00 BMP - BASIC METABOLIC PANEL [CHEM] DAILYLAB CBC - COMP BLD CT W/AUTO DIFF [HEME] DAILYLAB Subjective - Subjective Patient Reports: Feeling Better (Still has abdominal pain but it has lessened, no nausea and tolerating pured food for lunch. Had 2 BMs and feels less gassy) Objective Vital Signs: Vital Signs - 24 hr 02/17/23 02/17/23 02/18/23 15:02 18:40 00:50 Temperature 37.8 C 37.4 C Heart Rate 82 Heart Rate [ 86 78 Monitoring electrodes] Respiratory 14 20 20 Rate Blood Pressure 150/96 H [Left Brachial artery] Blood Pressure 144/87 H [Right Brachial artery] O2 Saturation 92 94 02/18/23 02/18/23 06:26 07:54 Temperature 36.5 C Heart Rate 72 Heart Rate [ 72 Monitoring electrodes] Respiratory 20 18 Rate Blood Pressure [Left Brachial artery] Blood Pressure 140/95 H [Right Brachial artery] O2 Saturation 92 Oxygen O2 Source Room air I&O (Last 24 Hrs): Intake and Output Totals x24h 02/16/23 02/17/23 02/18/23 23:59 23:59 23:59 Intake Total 1600.0 1390 620 Balance 1600.0 1390 620 General: Alert, Oriented x3 HEENT: EOMI, Mucous membr. moist/pink Neck: Supple Neuro: Alert, Non Focal Cardiovascular: Regular rate Respiratory: No respiratory distress Abdomen: Soft, Other (Obese. Nontender.) Extremities: No clubbing, No edema, No tenderness/swelling - Results Results: Laboratory Results WBC 14.0 x10^3/uL (4.8-10.8) H 02/18/23 05:36 RBC 4.92 10^6/uL (4.70-6.10) 02/18/23 05:36 Hgb 14.5 g/dL (14.0-18.0) 02/18/23 05:36 Hct 44.8 % (42.0-52.0) 02/18/23 05:36 MCV 91.1 fL (80.0-94.0) 02/18/23 05:36 MCH 29.5 pg (27.0-31.0) 02/18/23 05:36 MCHC 32.4 g/dL (32.0-36.0) 02/18/23 05:36 RDW 14.7 % (12.0-15.0) 02/18/23 05:36 Plt Count 255 10^3/uL (130-450) 02/18/23 05:36 MPV 10.6 fL (7.4-11.4) 02/18/23 05:36 Neut # (Auto) 11.8 10^3/uL (1.5-6.6) H 02/18/23 05:36 Lymph # (Auto) 0.9 10^3/uL (1.5-3.5) L 02/18/23 05:36 [place] # (Auto) 1.0 10^3/uL (0.0-1.0) 02/18/23 05:36 Eos # (Auto) 0.3 10^3/uL (0.0-0.7) 02/18/23 05:36 Baso # (Auto) 0.0 10^3/uL (0.0-0.1) 02/18/23 05:36 Absolute Nucleated RBC 0.00 x10^3/uL 02/18/23 05:36 Nucleated RBC % 0.0 /100WBC 02/18/23 05:36 Sodium 137 mmol/L (135-145) 02/18/23 05:36 Potassium 4.2 mmol/L (3.5-4.5) 02/18/23 05:36 Chloride 104 mmol/L (101-111) 02/18/23 05:36 Carbon Dioxide 28 mmol/L (21-32) 02/18/23 05:36 Anion Gap 5.0 (6-13) L 02/18/23 05:36 BUN 13 mg/dL (6-20) 02/18/23 05:36 Creatinine 1.0 mg/dL (0.6-1.3) 02/18/23 05:36 Estimated GFR (MDRD) 75 (>89) L 02/18/23 05:36 Glucose 145 mg/dL (74-104) H 02/18/23 05:36 Estimat Average Glucose 143 mg/dL (70-100) H 02/18/23 05:36 Hemoglobin A1c % 6.6 % (4.27-6.07) H 02/18/23 05:36 Lactic Acid 1.2 mmol/L (0.5-2.2) 02/16/23 14:26 Calcium 9.2 mg/dL (8.5-10.3) 02/18/23 05:36 Phosphorus 2.6 mg/dL (2.5-5.0) 02/17/23 05:37 Magnesium 2.1 mg/dL (1.7-2.3) 02/18/23 05:36 Total Bilirubin 0.9 mg/dL (0.2-1.0) 02/16/23 03:50 AST 28 IU/L (10-42) 02/16/23 03:50 ALT 31 IU/L (10-60) 02/16/23 03:50 Alkaline Phosphatase 61 IU/L (42-121) 02/16/23 03:50 Total Protein 8.1 g/dL (6.4-8.9) 02/16/23 03:50 Albumin 4.4 g/dL (3.2-5.5) 02/16/23 03:50 Globulin 3.7 g/dL (2.1-4.2) 02/16/23 03:50 Albumin/Globulin Ratio 1.2 (1.0-2.2) 02/16/23 03:50 Lipase 14 U/L (11-82) 02/16/23 03:50 Urine Color DARK YELLOW 02/16/23 08:51 Urine Clarity CLEAR (CLEAR) 02/16/23 08:51 Urine pH 5.5 PH (5.0-7.5) 02/16/23 08:51 Ur Specific [place] 1.010 (1.002-1.030) 02/16/23 08:51 Urine Protein 100 mg/dL (NEGATIVE) H 02/16/23 08:51 Urine Glucose (UA) 100 mg/dL (NEGATIVE) H 02/16/23 08:51 Urine Ketones NEGATIVE mg/dL (NEGATIVE) 02/16/23 08:51 Urine Occult Blood TRACE-INTA (NEGATIVE) 02/16/23 08:51 Urine Nitrite NEGATIVE (NEGATIVE) 02/16/23 08:51 Urine Bilirubin NEGATIVE (NEGATIVE) 02/16/23 08:51 Urine Urobilinogen 1 (NORMAL) E.U./dL (NORMAL) 02/16/23 08:51 Ur Leukocyte Esterase NEGATIVE (NEGATIVE) 02/16/23 08:51 Urine RBC 0-5 /HPF (0-5) 02/16/23 08:51 Urine WBC 0-3 /HPF (0-3) 02/16/23 08:51 Ur Squamous Epith Cells FEW Squamous (<= Few) 02/16/23 08:51 Urine Crystals 0-2 Uric Acid /LPF 02/16/23 08:51 Urine Bacteria Few /HPF (None Seen) 02/16/23 08:51 Ur Microscopic Review INDICATED 02/16/23 08:51 Urine Culture Comments NOT INDICATED 02/16/23 08:51
--- NOTE | 2023-02-18 10:43 | PROVIDER PROGRESS NOTE ---
Subjective - Subjective Pt reports feeling: Improved (feeling better. tolerating clears. no nausea. mild pain and bloating) Objective - Vital Signs/Intake & Output Reviewed Vital Signs: Yes Vital Signs: Vital Signs x48h Temp Pulse Pulse Resp BP Pulse Ox 02/18/23 07:54 36.5 C 72 18 140/95 H 92 02/18/23 06:26 72 20 Intake & Output: Intake & Output 02/15/23 02/16/23 02/17/23 02/18/23 23:59 23:59 23:59 23:59 Intake Total 1600.0 1390 620 Balance 1600.0 1390 620 - Objective General Appearance: positive: No acute distress, Alert Eyes Bilateral: positive: PERRL, EOMI, No scleral icterus Respiratory: positive: No respiratory distress Rectal: positive: Other (mild distension and tenderness) Neurologic/Psychiatric: positive: Oriented x3 - Lab Results Fish Bones: 02/18/23 05:36 02/18/23 05:36 Other Labs: Lab Results x24hrs 02/18/23 02/18/23 02/18/23 Range/Units 05:36 05:36 05:36 WBC 14.0 H (4.8-10.8) x10^3/uL RBC 4.92 (4.70-6.10) 10^6/uL Hgb 14.5 (14.0-18.0) g/dL Hct 44.8 (42.0-52.0) % MCV 91.1 (80.0-94.0) fL MCH 29.5 (27.0-31.0) pg MCHC 32.4 (32.0-36.0) g/dL RDW 14.7 (12.0-15.0) % Plt Count 255 (130-450) 10^3/uL MPV 10.6 (7.4-11.4) fL Neut # (Auto) 11.8 H (1.5-6.6) 10^3/uL Lymph # (Auto) 0.9 L (1.5-3.5) 10^3/uL [place] # (Auto) 1.0 (0.0-1.0) 10^3/uL Eos # (Auto) 0.3 (0.0-0.7) 10^3/uL Baso # (Auto) 0.0 (0.0-0.1) 10^3/uL Absolute Nucleated RBC 0.00 x10^3/uL Nucleated RBC % 0.0 /100WBC Sodium 137 (135-145) mmol/L Potassium 4.2 (3.5-4.5) mmol/L Chloride 104 (101-111) mmol/L Carbon Dioxide 28 (21-32) mmol/L Anion Gap 5.0 L (6-13) BUN 13 (6-20) mg/dL Creatinine 1.0 (0.6-1.3) mg/dL Estimated GFR (MDRD) 75 L (>89) Glucose 145 H (74-104) mg/dL Estimat Average Glucose 143 H (70-100) mg/dL Hemoglobin A1c % 6.6 H (4.27-6.07) % Calcium 9.2 (8.5-10.3) mg/dL Magnesium 2.1 (1.7-2.3) mg/dL Assessment/Plan - Problem List (1) Acute diverticulitis Impression: agree with care and plan. recommend continue clears until bloating and tenderness resolved. first bout of diverticulitis. he states he had a cologuard within the last few years he admits to low fiber diet perhaps home tomorrow on clear liquid diet, abxs, and slowly advancing diet at home. recommend starting high fiber diet in a week or two when symptoms completely resolved
[2023-02-19 04:56] LABS: BASOPHILS % (AUTO) 0.3 %; EOSINOPHILS # (AUTO) 0.4 10^3/uL (0.0-0.7); EOSINOPHILS % (AUTO) 2.9 %; HCT - HEMATOCRIT 47.6 % (42.0-52.0); HGB - HEMOGLOBIN 15.3 g/dL (14.0-18.0); LYMPHOCYTES # (AUTO) 0.9 10^3/uL (1.5-3.5); LYMPHOCYTES % (AUTO) 7.5 %; MEAN CORPUSCULAR HEMOGLOBIN 29.1 pg (27.0-31.0); MEAN CORPUSCULAR HGB CONC 32.1 g/dL (32.0-36.0); MEAN CORPUSCULAR VOLUME 90.5 fL (80.0-94.0); MEAN PLATELET VOLUME 10.3 fL (7.4-11.4); MONOCYTES % (AUTO) 8.4 %; NEUTROPHILS # (AUTO) 9.7 10^3/uL (1.5-6.6); NEUTROPHILS % (AUTO) 80.1 %; PLT - PLATELET COUNT 284 10^3/uL (130-450); RED BLOOD COUNT 5.26 10^6/uL (4.70-6.10); RED CELL DISTRIBUTION WIDTH 14.7 % (12.0-15.0); WHITE BLOOD COUNT 12.1 x10^3/uL (4.8-10.8)
[2023-02-19 05:12] LABS: CALCIUM 9.8 mg/dL (8.5-10.3); CREATININE 0.9 mg/dL (0.6-1.3); POTASSIUM 4.1 mmol/L (3.5-4.5)
[2023-02-19] MEDS: KETOROLAC 30 MG/ML VIAL IVP PRN ×3 (06:44→23:51)
[2023-02-19] MEDS: ONDANSETRON 4 MG/2 ML VIAL IVP PRN (06:45)
[2023-02-19] MEDS: SODIUM CHLORIDE FLUSH 0.9% 10 ML SYRINGE IVP PRN (06:46)
[2023-02-19] MEDS: PIPERACILLIN/TAZOBACTAM 3.375 GM in SODIUM CHLORIDE 0.9% MINIBAG 100 ML IV SCH ×3 (06:46→22:59)
[2023-02-19] MEDS: SIMETHICONE CHEW 80 MG TABLET PO PRN ×3 (06:57→23:51)
[2023-02-19] MEDS: lisinopriL 5 MG TABLET PO SCH (09:35)
[2023-02-19] MEDS: BUDESONIDE 0.5 MG/2 ML NEB INH SCH ×2 (10:11→17:45)
[2023-02-19] MEDS: FORMOTEROL FUMARATE NEB 20 MCG/2 ML INH SCH ×2 (10:12→17:45)
[2023-02-19] MEDS: SODIUM CHLORIDE FLUSH 0.9% 10 ML SYRINGE IVP SCH ×2 (10:58→16:21)
--- NOTE | 2023-02-19 11:18 | PROVIDER PROGRESS NOTE ---
Subjective - Subjective Pt reports feeling: No change (still having pain and little to no appetite. no nausea) Objective - Vital Signs/Intake & Output Vital Signs: Vital Signs x48h Temp Pulse Pulse Resp BP Pulse Ox 02/19/23 10:18 72 16 02/19/23 08:00 36.6 C 81 20 163/96 H 91 L Intake & Output: Intake & Output 02/16/23 02/17/23 02/18/23 02/19/23 23:59 23:59 23:59 23:59 Intake Total 1600.0 1390 1750 835 Output Total 200 Balance 1600.0 1390 1750 635 - Objective General Appearance: positive: No acute distress, Alert Respiratory: positive: No respiratory distress Rectal: positive: Other (mild distension and tenderness. non tender right inguinal hernia) Neurologic/Psychiatric: positive: Oriented x3 - Lab Results Fish Bones: 02/19/23 04:38 02/19/23 04:38 Other Labs: Lab Results x24hrs 02/19/23 02/19/23 Range/Units 04:38 04:38 WBC 12.1 H (4.8-10.8) x10^3/uL RBC 5.26 (4.70-6.10) 10^6/uL Hgb 15.3 (14.0-18.0) g/dL Hct 47.6 (42.0-52.0) % MCV 90.5 (80.0-94.0) fL MCH 29.1 (27.0-31.0) pg MCHC 32.1 (32.0-36.0) g/dL RDW 14.7 (12.0-15.0) % Plt Count 284 (130-450) 10^3/uL MPV 10.3 (7.4-11.4) fL Neut # (Auto) 9.7 H (1.5-6.6) 10^3/uL Lymph # (Auto) 0.9 L (1.5-3.5) 10^3/uL [place] # (Auto) 1.0 (0.0-1.0) 10^3/uL Eos # (Auto) 0.4 (0.0-0.7) 10^3/uL Baso # (Auto) 0.0 (0.0-0.1) 10^3/uL Absolute Nucleated RBC 0.00 x10^3/uL Nucleated RBC % 0.0 /100WBC Sodium 138 (135-145) mmol/L Potassium 4.1 (3.5-4.5) mmol/L Chloride 103 (101-111) mmol/L Carbon Dioxide 26 (21-32) mmol/L Anion Gap 9.0 (6-13) BUN 12 (6-20) mg/dL Creatinine 0.9 (0.6-1.3) mg/dL Estimated GFR (MDRD) 84 L (>89) Glucose 153 H (74-104) mg/dL Calcium 9.8 (8.5-10.3) mg/dL - Diagnostic Imaging Diagnostic Imaging Results: positive: Read independently Assessment/Plan - Problem List (1) Acute diverticulitis Impression: still having pain and little appetite. complaint of dark urine recommend continue clear liquid diet and iv abxs ivf to supplement poor oral intake
--- NOTE | 2023-02-19 16:34 | PROVIDER PROGRESS NOTE ---
Assessment/Plan - Problem List (1) Acute diverticulitis Assessment/Plan: As per findings on CT abdomen pelvis and he had an elevated white count of 14, had no fever but did have chills. His nausea is controlled and he is tolerating pureed food He abdominal pain and bloating are better His WBC improved: 14.8>> 15.5>> 14>> 12.1 today (all labs were reviewed) Plan: Cont IV antiemetics as needed Cont IV pain meds as needed. Patient has allergies to opioids therefore he is requesting Toradol and Tramadol and will also give IV Ofirmev for pain Will keep diet pureed and thin liquids since Surgeon today advised not advancing diet yet I ordered prune juice and also Simethicone for the bloating and gas Continue empiric IV Zosyn (2) Perforated bowel Assessment/Plan: As per CT imaging result Patient had a surgical evaluation and the general surgeon felt that the patient does not have a "surgical abdomen". Plan: As in #1. (3) Dark urine Assessment/Plan: He reportsdark, foul smelling urine Plan: Will order U/A with micro (4) Morbid obesity with BMI of 40.0-44.9, adult Conclusion/Plan: This complicates all of his care and will likely prolong his hospitalization. (5) Borderline DM Conclusion/Plan: His glu on labs are 144-200. His A1c came back at 6.6 consistent with Borderline DM Type 2, and he has morbid obesity, so Metabolic syndrome Plan: Will start a DM diet He needs DM teaching, will order Securities Broker consult (Animator is on vacation until Sun, back on 02/21) (6) HTN (hypertension) Conclusion/Plan: I resumed his Lisinopril with parameters for holding it (7) Psoriatic arthritis Conclusion/Plan: Plan: I told him we will hold his oral med Rinvoq while here - Current Meds Current Meds: Current Medications Generic Name Dose Route Start Last Admin Trade Name Freq PRN Reason Stop Dose Admin Acetaminophen 650 mg 02/16/23 14:20 02/16/23 15:10 Acetaminophen 325 Mg Tablet PO 650 mg Q4HR PRN Administration Pain 1 to 4, or Fever Budesonide 0.5 mg 02/17/23 07:00 02/19/23 10:11 Budesonide 0.5 Mg/2 Ml Neb INH 0.5 mg RTBID DELMAR Administration Formoterol Fumarate 20 mcg 02/17/23 07:00 02/19/23 10:12 Formoterol Fumarate Neb 20 Mcg/2 Ml INH 20 mcg RTBID DELMAR Administration Piperacillin Sod/Tazobactam 100 mls @ 25 mls/hr 02/16/23 15:00 02/19/23 15:45 Sod 3.375 gm/ Sodium Chloride IV 25 mls/hr Q8H DELMAR Administration Acetaminophen 1,000 mg in 100 mls @ 400 mls/hr 02/16/23 14:39 02/16/23 22:20 Acetaminophen IV Infused Q6HR PRN Infusion Moderate Pain (Level 4-6) Ketorolac Tromethamine 30 mg 02/16/23 19:49 02/19/23 15:35 Ketorolac 30 Mg/Ml Vial IVP 02/21/23 19:48 30 mg Q6HR PRN Administration Severe Pain (Level 7-10) Lisinopril 10 mg 02/18/23 09:00 02/19/23 09:35 Lisinopril 5 Mg Tablet PO 10 mg DAILY DELMAR Administration Ondansetron HCl 4 mg 02/16/23 14:20 02/19/23 06:45 Ondansetron 4 Mg/2 Ml Vial IVP 4 mg Q6HR PRN Administration Nausea / Vomiting Simethicone 80 mg 02/18/23 08:21 02/19/23 16:21 Simethicone Chew 80 Mg Tablet PO 80 mg Q6HR PRN Administration Gas Sodium Chloride 10 ml 02/16/23 14:20 02/19/23 06:46 Sodium Chloride Flush 0.9% 10 Ml Syringe IVP 10 ml PRN PRN Administration NEEDED PER PROVIDER ORDERS Sodium Chloride 10 ml 02/16/23 17:00 02/19/23 16:21 Sodium Chloride Flush 0.9% 10 Ml Syringe IVP 10 ml 0100,0900,1700 DELMAR Administration Tramadol HCl 50 mg 02/16/23 19:49 02/18/23 23:45 Tramadol 50 Mg Tablet PO 50 mg Q4HR PRN Administration Moderate Pain (Level 4-6) - Lab Result Fish Bone Diagrams: 02/20/23 04:31 02/20/23 04:31 - Additional Planning My Orders: My Active Orders 02/19/23 16:33 UA w/ MICROSCOPIC, CULT IF [URIN] Stat Subjective - Subjective Patient Reports: Feeling Better, Other (Still has abd distension sand no BM, but abd pain is less) Objective Vital Signs: Vital Signs - 24 hr 02/18/23 02/18/23 02/19/23 16:54 17:34 00:00 Temperature 36.7 C 36.8 C Heart Rate 79 Heart Rate [ 79 82 Monitoring electrodes] Respiratory 18 19 18 Rate Blood Pressure 150/92 H [Left Brachial artery] Blood Pressure 146/89 H [Right Brachial artery] O2 Saturation 92 93 02/19/23 02/19/23 08:00 10:18 Temperature 36.6 C Heart Rate 72 Heart Rate [ 81 Monitoring electrodes] Respiratory 20 16 Rate Blood Pressure [Left Brachial artery] Blood Pressure 163/96 H [Right Brachial artery] O2 Saturation 91 L Oxygen O2 Source Room air I&O (Last 24 Hrs): Intake and Output Totals x24h 02/17/23 02/18/23 02/19/23 23:59 23:59 23:59 Intake Total 1390 1750 1080 Output Total 200 Balance 1390 1750 880 General: Alert, No acute distress HEENT: Mucous membr. moist/pink Neck: Supple Neuro: Alert, Non Focal Cardiovascular: Regular rate Respiratory: No respiratory distress Abdomen: Other (Distended and obese, diminished bowel sounds, no guarding or rebound) Extremities: No clubbing, No edema, No tenderness/swelling - Results Results: Laboratory Results WBC 12.1 x10^3/uL (4.8-10.8) H 02/19/23 04:38 RBC 5.26 10^6/uL (4.70-6.10) 02/19/23 04:38 Hgb 15.3 g/dL (14.0-18.0) 02/19/23 04:38 Hct 47.6 % (42.0-52.0) 02/19/23 04:38 MCV 90.5 fL (80.0-94.0) 02/19/23 04:38 MCH 29.1 pg (27.0-31.0) 02/19/23 04:38 MCHC 32.1 g/dL (32.0-36.0) 02/19/23 04:38 RDW 14.7 % (12.0-15.0) 02/19/23 04:38 Plt Count 284 10^3/uL (130-450) 02/19/23 04:38 MPV 10.3 fL (7.4-11.4) 02/19/23 04:38 Neut # (Auto) 9.7 10^3/uL (1.5-6.6) H 02/19/23 04:38 Lymph # (Auto) 0.9 10^3/uL (1.5-3.5) L 02/19/23 04:38 [place] # (Auto) 1.0 10^3/uL (0.0-1.0) 02/19/23 04:38 Eos # (Auto) 0.4 10^3/uL (0.0-0.7) 02/19/23 04:38 Baso # (Auto) 0.0 10^3/uL (0.0-0.1) 02/19/23 04:38 Absolute Nucleated RBC 0.00 x10^3/uL 02/19/23 04:38 Nucleated RBC % 0.0 /100WBC 02/19/23 04:38 Sodium 138 mmol/L (135-145) 02/19/23 04:38 Potassium 4.1 mmol/L (3.5-4.5) 02/19/23 04:38 Chloride 103 mmol/L (101-111) 02/19/23 04:38 Carbon Dioxide 26 mmol/L (21-32) 02/19/23 04:38 Anion Gap 9.0 (6-13) 02/19/23 04:38 BUN 12 mg/dL (6-20) 02/19/23 04:38 Creatinine 0.9 mg/dL (0.6-1.3) 02/19/23 04:38 Estimated GFR (MDRD) 84 (>89) L 02/19/23 04:38 Glucose 153 mg/dL (74-104) H 02/19/23 04:38 Estimat Average Glucose 143 mg/dL (70-100) H 02/18/23 05:36 Hemoglobin A1c % 6.6 % (4.27-6.07) H 02/18/23 05:36 Lactic Acid 1.2 mmol/L (0.5-2.2) 02/16/23 14:26 Calcium 9.8 mg/dL (8.5-10.3) 02/19/23 04:38 Phosphorus 2.6 mg/dL (2.5-5.0) 02/17/23 05:37 Magnesium 2.1 mg/dL (1.7-2.3) 02/18/23 05:36 Total Bilirubin 0.9 mg/dL (0.2-1.0) 02/16/23 03:50 AST 28 IU/L (10-42) 02/16/23 03:50 ALT 31 IU/L (10-60) 02/16/23 03:50 Alkaline Phosphatase 61 IU/L (42-121) 02/16/23 03:50 Total Protein 8.1 g/dL (6.4-8.9) 02/16/23 03:50 Albumin 4.4 g/dL (3.2-5.5) 02/16/23 03:50 Globulin 3.7 g/dL (2.1-4.2) 02/16/23 03:50 Albumin/Globulin Ratio 1.2 (1.0-2.2) 02/16/23 03:50 Lipase 14 U/L (11-82) 02/16/23 03:50 Urine Color DARK YELLOW 02/16/23 08:51 Urine Clarity CLEAR (CLEAR) 02/16/23 08:51 Urine pH 5.5 PH (5.0-7.5) 02/16/23 08:51 Ur Specific [place] 1.010 (1.002-1.030) 02/16/23 08:51 Urine Protein 100 mg/dL (NEGATIVE) H 02/16/23 08:51 Urine Glucose (UA) 100 mg/dL (NEGATIVE) H 02/16/23 08:51 Urine Ketones NEGATIVE mg/dL (NEGATIVE) 02/16/23 08:51 Urine Occult Blood TRACE-INTA (NEGATIVE) 02/16/23 08:51 Urine Nitrite NEGATIVE (NEGATIVE) 02/16/23 08:51 Urine Bilirubin NEGATIVE (NEGATIVE) 02/16/23 08:51 Urine Urobilinogen 1 (NORMAL) E.U./dL (NORMAL) 02/16/23 08:51 Ur Leukocyte Esterase NEGATIVE (NEGATIVE) 02/16/23 08:51 Urine RBC 0-5 /HPF (0-5) 02/16/23 08:51 Urine WBC 0-3 /HPF (0-3) 02/16/23 08:51 Ur Squamous Epith Cells FEW Squamous (<= Few) 02/16/23 08:51 Urine Crystals 0-2 Uric Acid /LPF 02/16/23 08:51 Urine Bacteria Few /HPF (None Seen) 02/16/23 08:51 Ur Microscopic Review INDICATED 02/16/23 08:51 Urine Culture Comments NOT INDICATED 02/16/23 08:51
[2023-02-19 17:13] LABS: GLUCOSE, URINE (UA) NEGATIVE (NEGATIVE); KETONES,URINE (UA) TRACE mg/dL (NEGATIVE); LEUKOCYTE ESTERASE, URINE NEGATIVE (NEGATIVE); NITRITE,URINE NEGATIVE (NEGATIVE); OCCULT BLOOD,URINE TRACE-LYSE (NEGATIVE); PH,URINE 5.5 PH (5.0-7.5); PROTEIN,URINE 100 mg/dL (NEGATIVE); UROBILINOGEN,URINE 4 E.U./dL (NORMAL)
[2023-02-19 17:16] LABS: BILIRUBIN,URINE SMALL (NEGATIVE); CLARITY,URINE CLOUDY (CLEAR); ICTOTEST,URINE POSITIVE
[2023-02-19 17:36] LABS: AMORPHOUS SEDIMENT,UR Few /LPF; BACTERIA,URINE Few /HPF (None Seen); RBC,URINE 0-5 /HPF (0-5); SQUAMOUS EPITHELIAL CELL,UR MOD Squamous (<= Few); WBC,URINE 0-3 /HPF (0-3)
[2023-02-20] MEDS: SODIUM CHLORIDE FLUSH 0.9% 10 ML SYRINGE IVP SCH ×3 (00:17→17:40)
[2023-02-20 04:42] LABS: BASOPHILS % (AUTO) 0.3 %; EOSINOPHILS # (AUTO) 0.5 10^3/uL (0.0-0.7); EOSINOPHILS % (AUTO) 5.5 %; HCT - HEMATOCRIT 45.6 % (42.0-52.0); HGB - HEMOGLOBIN 14.6 g/dL (14.0-18.0); LYMPHOCYTES # (AUTO) 1.1 10^3/uL (1.5-3.5); MEAN CORPUSCULAR HEMOGLOBIN 28.9 pg (27.0-31.0); MEAN CORPUSCULAR VOLUME 90.3 fL (80.0-94.0); MEAN PLATELET VOLUME 9.9 fL (7.4-11.4); MONOCYTES % (AUTO) 10.1 %; NEUTROPHILS # (AUTO) 6.9 10^3/uL (1.5-6.6); NEUTROPHILS % (AUTO) 71.2 %; PLT - PLATELET COUNT 296 10^3/uL (130-450); RED BLOOD COUNT 5.05 10^6/uL (4.70-6.10); WHITE BLOOD COUNT 9.7 x10^3/uL (4.8-10.8)
[2023-02-20 04:57] LABS: CALCIUM 9.6 mg/dL (8.5-10.3); CREATININE 0.9 mg/dL (0.6-1.3)
[2023-02-20] MEDS: PIPERACILLIN/TAZOBACTAM 3.375 GM in SODIUM CHLORIDE 0.9% MINIBAG 100 ML IV SCH ×3 (06:10→22:44)
[2023-02-20] MEDS: FORMOTEROL FUMARATE NEB 20 MCG/2 ML INH SCH ×2 (07:06→19:27)
[2023-02-20] MEDS: BUDESONIDE 0.5 MG/2 ML NEB INH SCH ×2 (07:06→19:27)
[2023-02-20] MEDS: lisinopriL 5 MG TABLET PO SCH (08:15)
[2023-02-20] MEDS: traMADol 50 MG TABLET PO PRN ×2 (08:27→18:31)
[2023-02-20] MEDS: SIMETHICONE CHEW 80 MG TABLET PO PRN ×2 (08:27→16:11)
--- NOTE | 2023-02-20 12:09 | PROVIDER PROGRESS NOTE ---
Assessment/Plan - Problem List (1) Acute diverticulitis Assessment/Plan: -- Continue on IV Zosyn. --Case was discussed with general surgery. Continue advance his diet. His abdominal pain and bloating have improved. --Leukocytosis downtrending. New type 2 diabetes -- A1c 6.6. --Continue diabetic diet. --Will need diabetic education. Discharged on metformin. Hypertension --Continue lisinopril. Psoriatic arthritis --Holding Rinvoq while he is in the hospital. (4) Perforated bowel Assessment/Plan: --Continue medical management as above. - Current Meds Current Meds: Current Medications Generic Name Dose Route Start Last Admin Trade Name Freq PRN Reason Stop Dose Admin Acetaminophen 650 mg 02/16/23 14:20 02/16/23 15:10 Acetaminophen 325 Mg Tablet PO 650 mg Q4HR PRN Administration Pain 1 to 4, or Fever Budesonide 0.5 mg 02/17/23 07:00 02/20/23 07:06 Budesonide 0.5 Mg/2 Ml Neb INH 0.5 mg RTBID DELMAR Administration Formoterol Fumarate 20 mcg 02/17/23 07:00 02/20/23 07:06 Formoterol Fumarate Neb 20 Mcg/2 Ml INH 20 mcg RTBID DELMAR Administration Piperacillin Sod/Tazobactam 100 mls @ 25 mls/hr 02/16/23 15:00 02/20/23 06:10 Sod 3.375 gm/ Sodium Chloride IV 25 mls/hr Q8H DELMAR Administration Acetaminophen 1,000 mg in 100 mls @ 400 mls/hr 02/16/23 14:39 02/16/23 22:20 Acetaminophen IV Infused Q6HR PRN Infusion Moderate Pain (Level 4-6) Ketorolac Tromethamine 30 mg 02/16/23 19:49 02/19/23 23:51 Ketorolac 30 Mg/Ml Vial IVP 02/21/23 19:48 30 mg Q6HR PRN Administration Severe Pain (Level 7-10) Lisinopril 10 mg 02/18/23 09:00 02/20/23 08:15 Lisinopril 5 Mg Tablet PO 10 mg DAILY DELMAR Administration Ondansetron HCl 4 mg 02/16/23 14:20 02/19/23 06:45 Ondansetron 4 Mg/2 Ml Vial IVP 4 mg Q6HR PRN Administration Nausea / Vomiting Simethicone 80 mg 02/18/23 08:21 02/20/23 08:27 Simethicone Chew 80 Mg Tablet PO 80 mg Q6HR PRN Administration Gas Sodium Chloride 10 ml 02/16/23 14:20 02/19/23 06:46 Sodium Chloride Flush 0.9% 10 Ml Syringe IVP 10 ml PRN PRN Administration NEEDED PER PROVIDER ORDERS Sodium Chloride 10 ml 02/16/23 17:00 02/20/23 08:20 Sodium Chloride Flush 0.9% 10 Ml Syringe IVP 10 ml 0100,0900,1700 DELMAR Administration Tramadol HCl 50 mg 02/16/23 19:49 02/20/23 08:27 Tramadol 50 Mg Tablet PO 50 mg Q4HR PRN Administration Moderate Pain (Level 4-6) - Lab Result Fish Bone Diagrams: 02/20/23 04:31 02/20/23 04:31 - Additional Planning My Orders: My Active Orders 02/21/23 05:00 BMP - BASIC METABOLIC PANEL [CHEM] DAILYLAB CBC [CBC - COMP BLD CT W/AUTO DIFF] [HEME] DAILYLAB 02/22/23 05:00 BMP - BASIC METABOLIC PANEL [CHEM] DAILYLAB CBC [CBC - COMP BLD CT W/AUTO DIFF] [HEME] DAILYLAB 02/23/23 05:00 BMP - BASIC METABOLIC PANEL [CHEM] DAILYLAB CBC [CBC - COMP BLD CT W/AUTO DIFF] [HEME] DAILYLAB 02/24/23 05:00 BMP - BASIC METABOLIC PANEL [CHEM] DAILYLAB CBC [CBC - COMP BLD CT W/AUTO DIFF] [HEME] DAILYLAB Subjective - Subjective Patient Reports: Feeling Better (His abdominal pain has improved significantly. Case was discussed with general surgery. Has not yet had a BM.) Objective Vital Signs: Vital Signs - 24 hr 02/19/23 02/19/23 02/20/23 16:00 17:46 00:21 Temperature 37.1 C 37.2 C Heart Rate 79 Heart Rate [ 83 72 Monitoring electrodes] Respiratory 20 16 20 Rate Blood Pressure 149/89 H 154/95 H [Right Brachial artery] O2 Saturation 93 95 02/20/23 02/20/23 07:07 08:00 Temperature 36.9 C Heart Rate 76 Heart Rate [ 74 Monitoring electrodes] Respiratory 20 20 Rate Blood Pressure 145/92 H [Right Brachial artery] O2 Saturation 93 Oxygen O2 Source Room air I&O (Last 24 Hrs): Intake and Output Totals x24h 02/18/23 02/19/23 02/20/23 23:59 23:59 23:59 Intake Total 1750 1620 390 Output Total 250 150 Balance 1750 1370 240 General: Alert, Oriented x3 Cardiovascular: Regular rate, Normal S1, Normal S2 Respiratory: Chest non-tender, No respiratory distress Abdomen: Normal bowel sounds, Soft, No tenderness Extremities: No edema - Results Results: Laboratory Results WBC 9.7 x10^3/uL (4.8-10.8) 02/20/23 04:31 RBC 5.05 10^6/uL (4.70-6.10) 02/20/23 04:31 Hgb 14.6 g/dL (14.0-18.0) 02/20/23 04:31 Hct 45.6 % (42.0-52.0) 02/20/23 04:31 MCV 90.3 fL (80.0-94.0) 02/20/23 04:31 MCH 28.9 pg (27.0-31.0) 02/20/23 04:31 MCHC 32.0 g/dL (32.0-36.0) 02/20/23 04:31 RDW 15.0 % (12.0-15.0) 02/20/23 04:31 Plt Count 296 10^3/uL (130-450) 02/20/23 04:31 MPV 9.9 fL (7.4-11.4) 02/20/23 04:31 Neut # (Auto) 6.9 10^3/uL (1.5-6.6) H 02/20/23 04:31 Lymph # (Auto) 1.1 10^3/uL (1.5-3.5) L 02/20/23 04:31 [place] # (Auto) 1.0 10^3/uL (0.0-1.0) 02/20/23 04:31 Eos # (Auto) 0.5 10^3/uL (0.0-0.7) 02/20/23 04:31 Baso # (Auto) 0.0 10^3/uL (0.0-0.1) 02/20/23 04:31 Absolute Nucleated RBC 0.00 x10^3/uL 02/20/23 04:31 Nucleated RBC % 0.0 /100WBC 02/20/23 04:31 Sodium 138 mmol/L (135-145) 02/20/23 04:31 Potassium 4.0 mmol/L (3.5-4.5) 02/20/23 04:31 Chloride 105 mmol/L (101-111) 02/20/23 04:31 Carbon Dioxide 28 mmol/L (21-32) 02/20/23 04:31 Anion Gap 5.0 (6-13) L 02/20/23 04:31 BUN 15 mg/dL (6-20) 02/20/23 04:31 Creatinine 0.9 mg/dL (0.6-1.3) 02/20/23 04:31 Estimated GFR (MDRD) 84 (>89) L 02/20/23 04:31 Glucose 139 mg/dL (74-104) H 02/20/23 04:31 Estimat Average Glucose 143 mg/dL (70-100) H 02/18/23 05:36 Hemoglobin A1c % 6.6 % (4.27-6.07) H 02/18/23 05:36 Lactic Acid 1.2 mmol/L (0.5-2.2) 02/16/23 14:26 Calcium 9.6 mg/dL (8.5-10.3) 02/20/23 04:31 Phosphorus 2.6 mg/dL (2.5-5.0) 02/17/23 05:37 Magnesium 2.1 mg/dL (1.7-2.3) 02/18/23 05:36 Total Bilirubin 0.9 mg/dL (0.2-1.0) 02/16/23 03:50 AST 28 IU/L (10-42) 02/16/23 03:50 ALT 31 IU/L (10-60) 02/16/23 03:50 Alkaline Phosphatase 61 IU/L (42-121) 02/16/23 03:50 Total Protein 8.1 g/dL (6.4-8.9) 02/16/23 03:50 Albumin 4.4 g/dL (3.2-5.5) 02/16/23 03:50 Globulin 3.7 g/dL (2.1-4.2) 02/16/23 03:50 Albumin/Globulin Ratio 1.2 (1.0-2.2) 02/16/23 03:50 Lipase 14 U/L (11-82) 02/16/23 03:50 Urine Color DARK YELLOW 02/19/23 17:00 Urine Clarity CLOUDY (CLEAR) 02/19/23 17:00 Urine pH 5.5 PH (5.0-7.5) 02/19/23 17:00 Ur Specific [place] >=1.030 (1.002-1.030) H 02/19/23 17:00 Urine Protein 100 mg/dL (NEGATIVE) H 02/19/23 17:00 Urine Glucose (UA) NEGATIVE mg/dL (NEGATIVE) 02/19/23 17:00 Urine Ketones TRACE mg/dL (NEGATIVE) 02/19/23 17:00 Urine Occult Blood TRACE-LYSE (NEGATIVE) 02/19/23 17:00 Urine Nitrite NEGATIVE (NEGATIVE) 02/19/23 17:00 Urine Bilirubin SMALL (NEGATIVE) H 02/19/23 17:00 Urine Urobilinogen 4 E.U./dL (NORMAL) H 02/19/23 17:00 Ur Leukocyte Esterase NEGATIVE (NEGATIVE) 02/19/23 17:00 Urine RBC 0-5 /HPF (0-5) 02/19/23 17:00 Urine WBC 0-3 /HPF (0-3) 02/19/23 17:00 Ur Squamous Epith Cells MOD Squamous (<= Few) H 02/19/23 17:00 Urine Crystals 0-2 Uric Acid /LPF 02/16/23 08:51 Amorphous Sediment Few /LPF 02/19/23 17:00 Urine Bacteria Few /HPF (None Seen) 02/19/23 17:00 Ur Microscopic Review INDICATED 02/16/23 08:51 Urine Culture Comments NOT INDICATED 02/19/23 17:00 ABX Reporting Has patient been on IV antibiotics over the past 48 hours?: Yes Current Medications - Current Medications Current Medications: Active Medications Generic Name Dose Route Start Last Admin Trade Name Freq PRN Reason Stop Dose Admin Acetaminophen 650 mg 02/16/23 14:20 02/16/23 15:10 Acetaminophen 325 Mg Tablet PO 650 mg Q4HR PRN Administration Pain 1 to 4, or Fever Budesonide 0.5 mg 02/17/23 07:00 02/20/23 07:06 Budesonide 0.5 Mg/2 Ml Neb INH 0.5 mg RTBID DELMAR Administration Formoterol Fumarate 20 mcg 02/17/23 07:00 02/20/23 07:06 Formoterol Fumarate Neb 20 Mcg/2 Ml INH 20 mcg RTBID DELMAR Administration Hydralazine HCl 10 mg 02/17/23 07:22 Hydralazine Inj 20 Mg/Ml Vial IVP Q8H PRN Hypertensive Emergency Piperacillin Sod/Tazobactam 100 mls @ 25 mls/hr 02/16/23 15:00 02/20/23 06:10 Sod 3.375 gm/ Sodium Chloride IV 25 mls/hr Q8H DELMAR Administration Acetaminophen 1,000 mg in 100 mls @ 400 mls/hr 02/16/23 14:39 02/16/23 22:20 Acetaminophen IV Infused Q6HR PRN Infusion Moderate Pain (Level 4-6) Ketorolac Tromethamine 30 mg 02/16/23 19:49 02/19/23 23:51 Ketorolac 30 Mg/Ml Vial IVP 02/21/23 19:48 30 mg Q6HR PRN Administration Severe Pain (Level 7-10) Lisinopril 10 mg 02/18/23 09:00 02/20/23 08:15 Lisinopril 5 Mg Tablet PO 10 mg DAILY DELMAR Administration Ondansetron HCl 4 mg 02/16/23 14:20 02/19/23 06:45 Ondansetron 4 Mg/2 Ml Vial IVP 4 mg Q6HR PRN Administration Nausea / Vomiting Simethicone 80 mg 02/18/23 08:21 02/20/23 08:27 Simethicone Chew 80 Mg Tablet PO 80 mg Q6HR PRN Administration Gas Sodium Chloride 10 ml 02/16/23 14:20 02/19/23 06:46 Sodium Chloride Flush 0.9% 10 Ml Syringe IVP 10 ml PRN PRN Administration NEEDED PER PROVIDER ORDERS Sodium Chloride 10 ml 02/16/23 17:00 02/20/23 08:20 Sodium Chloride Flush 0.9% 10 Ml Syringe IVP 10 ml 0100,0900,1700 DELMAR Administration Tramadol HCl 50 mg 02/16/23:49 02/20/23 08:27 Tramadol 50 Mg Tablet PO 50 mg Q4HR PRN Administration Moderate Pain (Level 4-6) Fluticasone/Vilanterol [Breo Ellipta 200-25 Mcg INH] 1 each IH DAILY 02/16/23 Lisinopril [Zestril] 10 mg PO DAILY 02/16/23 Meloxicam 15 mg PO DAILY PRN 02/16/23 Upadacitinib [Rinvoq ER] 15 mg PO DAILY 02/16/23
--- NOTE | 2023-02-20 16:53 | PROVIDER PROGRESS NOTE ---
Subjective - Subjective Pt reports feeling: No change (still mild pain and little appetite. has passed bm and gas. no nausea) Objective - Vital Signs/Intake & Output Intake & Output: Intake & Output 02/17/23 02/18/23 02/19/23 02/20/23 23:59 23:59 23:59 23:59 Intake Total 1390 1750 1620 610 Output Total 250 150 Balance 1390 1750 1370 460 - Objective General Appearance: positive: No acute distress, Alert ENT: positive: No signs of dehydration Neck: positive: Trachea midline Respiratory: positive: No respiratory distress Abdomen: positive: Other (mild distension) Neurologic/Psychiatric: positive: Oriented x3 - Lab Results Fish Bones: 02/20/23 04:31 02/20/23 04:31 Other Labs: Lab Results x24hrs 02/20/23 02/20/23 02/19/23 Range/Units 04:31 04:31 17:00 WBC 9.7 (4.8-10.8) x10^3/uL RBC 5.05 (4.70-6.10) 10^6/uL Hgb 14.6 (14.0-18.0) g/dL Hct 45.6 (42.0-52.0) % MCV 90.3 (80.0-94.0) fL MCH 28.9 (27.0-31.0) pg MCHC 32.0 (32.0-36.0) g/dL RDW 15.0 (12.0-15.0) % Plt Count 296 (130-450) 10^3/uL MPV 9.9 (7.4-11.4) fL Neut # (Auto) 6.9 H (1.5-6.6) 10^3/uL Lymph # (Auto) 1.1 L (1.5-3.5) 10^3/uL [place] # (Auto) 1.0 (0.0-1.0) 10^3/uL Eos # (Auto) 0.5 (0.0-0.7) 10^3/uL Baso # (Auto) 0.0 (0.0-0.1) 10^3/uL Absolute Nucleated RBC 0.00 x10^3/uL Nucleated RBC % 0.0 /100WBC Sodium 138 (135-145) mmol/L Potassium 4.0 (3.5-4.5) mmol/L Chloride 105 (101-111) mmol/L Carbon Dioxide 28 (21-32) mmol/L Anion Gap 5.0 L (6-13) BUN 15 (6-20) mg/dL Creatinine 0.9 (0.6-1.3) mg/dL Estimated GFR (MDRD) 84 L (>89) Glucose 139 H (74-104) mg/dL Calcium 9.6 (8.5-10.3) mg/dL Urine Color DARK YELLOW Urine Clarity CLOUDY (CLEAR) Urine pH 5.5 (5.0-7.5) PH Ur Specific [place] >=1.030 H (1.002-1.030) Urine Protein 100 H (NEGATIVE) mg/dL Urine Glucose (UA) NEGATIVE (NEGATIVE) mg/dL Urine Ketones TRACE (NEGATIVE) mg/dL Urine Occult Blood TRACE-LYSE (NEGATIVE) Urine Nitrite NEGATIVE (NEGATIVE) Urine Bilirubin SMALL H (NEGATIVE) Urine Urobilinogen 4 H (NORMAL) E.U./dL Ur Leukocyte Esterase NEGATIVE (NEGATIVE) Urine RBC 0-5 (0-5) /HPF Urine WBC 0-3 (0-3) /HPF Ur Squamous Epith Cells MOD Squamous H (<= Few) Amorphous Sediment Few /LPF Urine Bacteria Few (None Seen) /HPF Urine Culture Comments NOT INDICATED Assessment/Plan - Problem List (1) Acute diverticulitis Impression: agree with care and plan. liquid soft diet until pain free, non tender, non distended, appetite returning
[2023-02-21] MEDS: hydrALAZINE INJ 20 MG/ML VIAL IVP PRN (01:14)
[2023-02-21] MEDS: SODIUM CHLORIDE FLUSH 0.9% 10 ML SYRINGE IVP SCH ×3 (01:15→17:34)
[2023-02-21] MEDS: ACETAMINOPHEN 325 MG TABLET PO PRN (01:15)
[2023-02-21] MEDS: SIMETHICONE CHEW 80 MG TABLET PO PRN ×4 (04:57→22:59)
[2023-02-21 05:40] LABS: BASOPHILS % (AUTO) 0.3 %; EOSINOPHILS # (AUTO) 0.4 10^3/uL (0.0-0.7); EOSINOPHILS % (AUTO) 4.4 %; HGB - HEMOGLOBIN 14.6 g/dL (14.0-18.0); LYMPHOCYTES # (AUTO) 0.8 10^3/uL (1.5-3.5); LYMPHOCYTES % (AUTO) 8.4 %; MEAN CORPUSCULAR HEMOGLOBIN 29.9 pg (27.0-31.0); MEAN CORPUSCULAR HGB CONC 32.4 g/dL (32.0-36.0); MEAN CORPUSCULAR VOLUME 92.2 fL (80.0-94.0); MEAN PLATELET VOLUME 9.8 fL (7.4-11.4); MONOCYTES # (AUTO) 0.9 10^3/uL (0.0-1.0); MONOCYTES % (AUTO) 9.2 %; NEUTROPHILS # (AUTO) 7.7 10^3/uL (1.5-6.6); NEUTROPHILS % (AUTO) 76.1 %; PLT - PLATELET COUNT 284 10^3/uL (130-450); RED BLOOD COUNT 4.88 10^6/uL (4.70-6.10); RED CELL DISTRIBUTION WIDTH 15.2 % (12.0-15.0); WHITE BLOOD COUNT 10.1 x10^3/uL (4.8-10.8)
[2023-02-21 05:54] LABS: CALCIUM 9.3 mg/dL (8.5-10.3); CREATININE 0.9 mg/dL (0.6-1.3); POTASSIUM 3.8 mmol/L (3.5-4.5)
[2023-02-21] MEDS: PIPERACILLIN/TAZOBACTAM 3.375 GM in SODIUM CHLORIDE 0.9% MINIBAG 100 ML IV SCH ×3 (06:42→22:59)
[2023-02-21] MEDS: FORMOTEROL FUMARATE NEB 20 MCG/2 ML INH SCH ×2 (07:30→18:26)
[2023-02-21] MEDS: BUDESONIDE 0.5 MG/2 ML NEB INH SCH (07:30)
[2023-02-21] MEDS: lisinopriL 5 MG TABLET PO SCH (09:18)
[2023-02-21] MEDS: traMADol 50 MG TABLET PO PRN ×2 (11:52→16:06)
--- NOTE | 2023-02-21 14:13 | PROVIDER PROGRESS NOTE ---
Subjective - Subjective Pt reports feeling: Improved (less pain and bowel function improved) Objective - Vital Signs/Intake & Output Vital Signs: Vital Signs x48h Temp Pulse Pulse Resp BP Pulse Ox 02/21/23 10:25 74 16 153/95 H 95 02/21/23 07:50 36.8 C 73 16 150/99 H 95 02/21/23 07:32 78 20 Intake & Output: Intake & Output 02/18/23 02/19/23 02/20/23 02/21/23 23:59 23:59 23:59 23:59 Intake Total 1750 1620 1530 720 Output Total 250 150 100 Balance 1750 1370 1380 620 - Objective General Appearance: positive: No acute distress, Alert Eyes Bilateral: positive: PERRL, EOMI, No scleral icterus Respiratory: positive: No respiratory distress Abdomen: positive: Other (minimal tenderness) Neurologic/Psychiatric: positive: Oriented x3 - Lab Results Fish Bones: 02/21/23 05:20 02/21/23 05:20 Other Labs: Lab Results x24hrs 02/21/23 02/21/23 Range/Units 05:20 05:20 WBC 10.1 (4.8-10.8) x10^3/uL RBC 4.88 (4.70-6.10) 10^6/uL Hgb 14.6 (14.0-18.0) g/dL Hct 45.0 (42.0-52.0) % MCV 92.2 (80.0-94.0) fL MCH 29.9 (27.0-31.0) pg MCHC 32.4 (32.0-36.0) g/dL RDW 15.2 H (12.0-15.0) % Plt Count 284 (130-450) 10^3/uL MPV 9.8 (7.4-11.4) fL Neut # (Auto) 7.7 H (1.5-6.6) 10^3/uL Lymph # (Auto) 0.8 L (1.5-3.5) 10^3/uL [place] # (Auto) 0.9 (0.0-1.0) 10^3/uL Eos # (Auto) 0.4 (0.0-0.7) 10^3/uL Baso # (Auto) 0.0 (0.0-0.1) 10^3/uL Absolute Nucleated RBC 0.00 x10^3/uL Nucleated RBC % 0.0 /100WBC Sodium 137 (135-145) mmol/L Potassium 3.8 (3.5-4.5) mmol/L Chloride 103 (101-111) mmol/L Carbon Dioxide 27 (21-32) mmol/L Anion Gap 7.0 (6-13) BUN 11 (6-20) mg/dL Creatinine 0.9 (0.6-1.3) mg/dL Estimated GFR (MDRD) 84 L (>89) Glucose 140 H (74-104) mg/dL Calcium 9.3 (8.5-10.3) mg/dL - Diagnostic Imaging Diagnostic Imaging Results: positive: Read independently (right inguinal hernia with bowel and bladder without much change by ct for 1 year) Assessment/Plan - Problem List (1) Acute diverticulitis Impression: agree with care and plan. continue light diet until pain free and non tender right inguinal hernia with bowel and bladder without much change by ct scan for 1 year. recommend elective repair when well recovered from his diverticulitis.
--- NOTE | 2023-02-21 17:25 | PROVIDER PROGRESS NOTE ---
Assessment/Plan - Problem List (1) Acute diverticulitis Assessment/Plan: (1) Acute diverticulitis Assessment/Plan: -- Continue on IV Zosyn. --Case was discussed with general surgery. Continue advance his diet. His abdominal pain and bloating have improved. New type 2 diabetes -- A1c 6.6. --Continue diabetic diet. --Will need diabetic education. Discharged on metformin. Hypertension --Continue lisinopril. Psoriatic arthritis --Holding Rinvoq while he is in the hospital. (4) Perforated bowel Assessment/Plan: --Continue medical management as above. (6) Scrotal swelling Assessment/Plan: --Worsening scrotal swelling. Right worse than left. --Scrotal ultrasound pending. --UA ordered. --Urology consulted. - Current Meds Current Meds: Current Medications Generic Name Dose Route Start Last Admin Trade Name Freq PRN Reason Stop Dose Admin Acetaminophen 650 mg 02/16/23 14:20 02/21/23 01:15 Acetaminophen 325 Mg Tablet PO 650 mg Q4HR PRN Administration Pain 1 to 4, or Fever Formoterol Fumarate 20 mcg 02/17/23 07:00 02/21/23 07:30 Formoterol Fumarate Neb 20 Mcg/2 Ml INH 20 mcg RTBID DELMAR Administration Hydralazine HCl 10 mg 02/17/23 07:22 02/21/23 01:14 Hydralazine Inj 20 Mg/Ml Vial IVP 10 mg Q8H PRN Administration Hypertensive Emergency Piperacillin Sod/Tazobactam 100 mls @ 25 mls/hr 02/16/23 15:00 02/21/23 14:15 Sod 3.375 gm/ Sodium Chloride IV 25 mls/hr Q8H DELMAR Administration Acetaminophen 1,000 mg in 100 mls @ 400 mls/hr 02/16/23 14:39 02/16/23 22:20 Acetaminophen IV Infused Q6HR PRN Infusion Moderate Pain (Level 4-6) Ketorolac Tromethamine 30 mg 02/16/23 19:49 02/19/23 23:51 Ketorolac 30 Mg/Ml Vial IVP 02/21/23 19:48 30 mg Q6HR PRN Administration Severe Pain (Level 7-10) Lisinopril 10 mg 02/18/23 09:00 02/21/23 09:18 Lisinopril 5 Mg Tablet PO 10 mg DAILY DELMAR Administration Ondansetron HCl 4 mg 02/16/23 14:20 02/19/23 06:45 Ondansetron 4 Mg/2 Ml Vial IVP 4 mg Q6HR PRN Administration Nausea / Vomiting Sodium Chloride 10 ml 02/16/23 14:20 02/19/23 06:46 Sodium Chloride Flush 0.9% 10 Ml Syringe IVP 10 ml PRN PRN Administration NEEDED PER PROVIDER ORDERS Sodium Chloride 10 ml 02/16/23 17:00 02/21/23 09:19 Sodium Chloride Flush 0.9% 10 Ml Syringe IVP Not Given 0100,0900,1700 DELMAR Tramadol HCl 50 mg 02/16/23 19:49 02/21/23 16:06 Tramadol 50 Mg Tablet PO 50 mg Q4HR PRN Administration Moderate Pain (Level 4-6) - Lab Result Fish Bone Diagrams: 02/21/23 05:20 02/21/23 05:20 - Additional Planning My Orders: My Active Orders 02/21/23 Urology Consult [CONS] Routine 02/21/23 08:41 Testicle w/Doppler [US] Routine 02/21/23 17:19 Simethicone [Mylicon] 80 mg PO Q4H PRN 02/22/23 05:00 BMP - BASIC METABOLIC PANEL [CHEM] DAILYLAB CBC [CBC - COMP BLD CT W/AUTO DIFF] [HEME] DAILYLAB 02/22/23 09:00 Budesonide [Pulmicort] 0.5 mg INH DAILY 02/23/23 05:00 BMP - BASIC METABOLIC PANEL [CHEM] DAILYLAB CBC [CBC - COMP BLD CT W/AUTO DIFF] [HEME] DAILYLAB 02/24/23 05:00 BMP - BASIC METABOLIC PANEL [CHEM] DAILYLAB CBC [CBC - COMP BLD CT W/AUTO DIFF] [HEME] DAILYLAB Subjective - Subjective Patient Reports: Feeling Better (Abdominal pain is better. He isn't eating much. Has quite a bit of scrotal swelling. Right is worse than left. States it has been present for about 2 months but got worse in the hospital.) Objective Vital Signs: Vital Signs - 24 hr 02/20/23 02/21/23 02/21/23 19:25 00:00 01:14 Temperature 37.4 C Heart Rate 74 Heart Rate [ 72 Monitoring electrodes] Respiratory 20 18 Rate Blood Pressure 171/101 H Blood Pressure 152/94 H [Right Brachial artery] O2 Saturation 94 02/21/23 02/21/23 02/21/23 01:44 07:32 07:50 Temperature 36.8 C Heart Rate 78 Heart Rate [ 73 Monitoring electrodes] Respiratory 20 16 Rate Blood Pressure 150/89 H Blood Pressure 150/99 H [Right Brachial artery] O2 Saturation 95 02/21/23 02/21/23 10:25 16:00 Temperature 36.8 C Heart Rate Heart Rate [ 74 67 Monitoring electrodes] Respiratory 16 16 Rate Blood Pressure Blood Pressure 153/95 H 147/95 H [Right Brachial artery] O2 Saturation 95 95 Oxygen O2 Source Room air I&O (Last 24 Hrs): Intake and Output Totals x24h 02/19/23 02/20/23 02/21/23 23:59 23:59 23:59 Intake Total 1620 1530 720 Output Total 250 150 100 Balance 1370 1380 620 General: Alert, Oriented x3, Cooperative, No acute distress Cardiovascular: Regular rate, Normal S1, Normal S2, No murmurs Respiratory: Chest non-tender, No respiratory distress Abdomen: Normal bowel sounds, Other (Distended) Genitourinary: Testicular Tenderness, Other - Results Results: Laboratory Results WBC 10.1 x10^3/uL (4.8-10.8) 02/21/23 05:20 RBC 4.88 10^6/uL (4.70-6.10) 02/21/23 05:20 Hgb 14.6 g/dL (14.0-18.0) 02/21/23 05:20 Hct 45.0 % (42.0-52.0) 02/21/23 05:20 MCV 92.2 fL (80.0-94.0) 02/21/23 05:20 MCH 29.9 pg (27.0-31.0) 02/21/23 05:20 MCHC 32.4 g/dL (32.0-36.0) 02/21/23 05:20 RDW 15.2 % (12.0-15.0) H 02/21/23 05:20 Plt Count 284 10^3/uL (130-450) 02/21/23 05:20 MPV 9.8 fL (7.4-11.4) 02/21/23 05:20 Neut # (Auto) 7.7 10^3/uL (1.5-6.6) H 02/21/23 05:20 Lymph # (Auto) 0.8 10^3/uL (1.5-3.5) L 02/21/23 05:20 [place] # (Auto) 0.9 10^3/uL (0.0-1.0) 02/21/23 05:20 Eos # (Auto) 0.4 10^3/uL (0.0-0.7) 02/21/23 05:20 Baso # (Auto) 0.0 10^3/uL (0.0-0.1) 02/21/23 05:20 Absolute Nucleated RBC 0.00 x10^3/uL 02/21/23 05:20 Nucleated RBC % 0.0 /100WBC 02/21/23 05:20 Sodium 137 mmol/L (135-145) 02/21/23 05:20 Potassium 3.8 mmol/L (3.5-4.5) 02/21/23 05:20 Chloride 103 mmol/L (101-111) 02/21/23 05:20 Carbon Dioxide 27 mmol/L (21-32) 02/21/23 05:20 Anion Gap 7.0 (6-13) 02/21/23 05:20 BUN 11 mg/dL (6-20) 02/21/23 05:20 Creatinine 0.9 mg/dL (0.6-1.3) 02/21/23 05:20 Estimated GFR (MDRD) 84 (>89) L 02/21/23 05:20 Glucose 140 mg/dL (74-104) H 02/21/23 05:20 Estimat Average Glucose 143 mg/dL (70-100) H 02/18/23 05:36 Hemoglobin A1c % 6.6 % (4.27-6.07) H 02/18/23 05:36 Lactic Acid 1.2 mmol/L (0.5-2.2) 02/16/23 14:26 Calcium 9.3 mg/dL (8.5-10.3) 02/21/23 05:20 Phosphorus 2.6 mg/dL (2.5-5.0) 02/17/23 05:37 Magnesium 2.1 mg/dL (1.7-2.3) 02/18/23 05:36 Total Bilirubin 0.9 mg/dL (0.2-1.0) 02/16/23 03:50 AST 28 IU/L (10-42) 02/16/23 03:50 ALT 31 IU/L (10-60) 02/16/23 03:50 Alkaline Phosphatase 61 IU/L (42-121) 02/16/23 03:50 Total Protein 8.1 g/dL (6.4-8.9) 02/16/23 03:50 Albumin 4.4 g/dL (3.2-5.5) 02/16/23 03:50 Globulin 3.7 g/dL (2.1-4.2) 02/16/23 03:50 Albumin/Globulin Ratio 1.2 (1.0-2.2) 02/16/23 03:50 Lipase 14 U/L (11-82) 02/16/23 03:50 Urine Color DARK YELLOW 02/19/23 17:00 Urine Clarity CLOUDY (CLEAR) 02/19/23 17:00 Urine pH 5.5 PH (5.0-7.5) 02/19/23 17:00 Ur Specific [place] >=1.030 (1.002-1.030) H 02/19/23 17:00 Urine Protein 100 mg/dL (NEGATIVE) H 02/19/23 17:00 Urine Glucose (UA) NEGATIVE mg/dL (NEGATIVE) 02/19/23 17:00 Urine Ketones TRACE mg/dL (NEGATIVE) 02/19/23 17:00 Urine Occult Blood TRACE-LYSE (NEGATIVE) 02/19/23 17:00 Urine Nitrite NEGATIVE (NEGATIVE) 02/19/23 17:00 Urine Bilirubin SMALL (NEGATIVE) H 02/19/23 17:00 Urine Urobilinogen 4 E.U./dL (NORMAL) H 02/19/23 17:00 Ur Leukocyte Esterase NEGATIVE (NEGATIVE) 02/19/23 17:00 Urine RBC 0-5 /HPF (0-5) 02/19/23 17:00 Urine WBC 0-3 /HPF (0-3) 02/19/23 17:00 Ur Squamous Epith Cells MOD Squamous (<= Few) H 02/19/23 17:00 Urine Crystals 0-2 Uric Acid /LPF 02/16/23 08:51 Amorphous Sediment Few /LPF 02/19/23 17:00 Urine Bacteria Few /HPF (None Seen) 02/19/23 17:00 Ur Microscopic Review INDICATED 02/16/23 08:51 Urine Culture Comments NOT INDICATED 02/19/23 17:00
--- NOTE | 2023-02-21 20:32 | Ultrasound Report ---
PROCEDURE: Testicle w/Doppler INDICATIONS: Scrotal swelling TECHNIQUE: Real-time scanning was performed of the scrotum and testicles, with image documentation. Color and p ulse Doppler interrogation was performed of both testicles. COMPARISON: CT abdomen pelvis 02/16/2023 FINDINGS: Right: Testicle is normal in size at 4.1 x 1.5 x 3.0 cm, and homogenous in echotexture. Epididymis is normal in overall size and morphology. Mild hydrocele. No varicoceles. Overlying scrotal skin is normal in thickness. Within the right scrotal sac there is fluid as well as what appears to be fat attenuation. Testicle is displaced superiorly. Left: Testicle is normal in size at 4.1 x 1.8 x 2.9 cm, and homogeneous in echotexture. Epididymis is normal in overall size and morphology. Mild hydrocele. No varicoceles. Overlying scrotal skin is normal in thickness. Doppler: Color and pulse Doppler demonstrate normal and symmetric arterial flow in both testicles. IMPRESSION: No evidence of torsion at time of exam. Intermittent torsion cannot be excluded. Superior displacement particularly of the right testicle with scrotal sac containing fluid and what a ppears to be mixed echogenicity. In correlation with CT exam, there is what appears to be herniation of bowel/bladder. It is incompletely visualized. This is likely the source of appearance on ultrasoun d. Reviewed by: Reyna Gyu MD on 02/21/2023 8:31 PM PST Approved by: Reyna Guy MD on 02/21/2023 8:31 PM PST Station ID: [id number]
[2023-02-22] MEDS: SODIUM CHLORIDE FLUSH 0.9% 10 ML SYRINGE IVP SCH ×2 (00:03→08:21)
[2023-02-22] MEDS: traMADol 50 MG TABLET PO PRN (00:22)
[2023-02-22] MEDS: hydrALAZINE INJ 20 MG/ML VIAL IVP PRN (00:30)
[2023-02-22] MEDS: SODIUM CHLORIDE FLUSH 0.9% 10 ML SYRINGE IVP PRN (00:30)
[2023-02-22] MEDS: ONDANSETRON 4 MG/2 ML VIAL IVP PRN (02:15)
--- NOTE | 2023-02-22 02:53 | PROVIDER PROGRESS NOTE ---
Instructor Of Nursing Note - Instructor Of Nursing Note Instructor Of Nursing Note: RN paged "Dx: Diverticulitis HX: HTN, High Cholesterol Patient's BP at 0020 was 160/101. PRN hydraline 10 mg ivp given. Vitals were taken. The latest one at 0210 is still elevated at 160/103. Hydralazine PRN is q8hr. Patient is on lisinopril 10 mg po daily." ordered lisinopril , home med, x 1 now. Yuko Jaquez DO [facility]
[2023-02-22] MEDS ORDERED: lisinopriL 5 MG TABLET PO ONE (03:00)
[2023-02-22 04:38] LABS: BASOPHILS # (AUTO) 0.1 10^3/uL (0.0-0.1); BASOPHILS % (AUTO) 0.5 %; EOSINOPHILS # (AUTO) 0.4 10^3/uL (0.0-0.7); EOSINOPHILS % (AUTO) 3.5 %; HGB - HEMOGLOBIN 14.5 g/dL (14.0-18.0); LYMPHOCYTES % (AUTO) 8.6 %; MEAN CORPUSCULAR HEMOGLOBIN 29.5 pg (27.0-31.0); MEAN CORPUSCULAR HGB CONC 31.5 g/dL (32.0-36.0); MEAN CORPUSCULAR VOLUME 93.7 fL (80.0-94.0); MEAN PLATELET VOLUME 10.1 fL (7.4-11.4); MONOCYTES # (AUTO) 1.1 10^3/uL (0.0-1.0); MONOCYTES % (AUTO) 9.8 %; NEUTROPHILS # (AUTO) 8.4 10^3/uL (1.5-6.6); NEUTROPHILS % (AUTO) 75.7 %; PLT - PLATELET COUNT 298 10^3/uL (130-450); RED BLOOD COUNT 4.91 10^6/uL (4.70-6.10); RED CELL DISTRIBUTION WIDTH 15.4 % (12.0-15.0); WHITE BLOOD COUNT 11.1 x10^3/uL (4.8-10.8)
[2023-02-22] MEDS: PIPERACILLIN/TAZOBACTAM 3.375 GM in SODIUM CHLORIDE 0.9% MINIBAG 100 ML IV SCH (06:27)
[2023-02-22] MEDS: SIMETHICONE CHEW 80 MG TABLET PO PRN (06:30)
[2023-02-22] MEDS: lisinopriL 5 MG TABLET PO SCH (08:21)
[2023-02-22] MEDS ORDERED: BUDESONIDE 0.5 MG/2 ML NEB INH SCH (09:00)
[2023-02-22] MEDS: FORMOTEROL FUMARATE NEB 20 MCG/2 ML INH SCH (10:09)
--- NOTE | 2023-02-22 10:42 | Discharge Plan ---
Discharge Plan Problem Reviewed?: Yes Disposition: Home, Self Care Condition: Good Prescriptions: traMADol [Ultram] 50 mg PO Q4HR PRN #15 tab PRN Reason: Moderate Pain (Level 4-6) metroNIDAZOLE [Flagyl] 500 mg PO Q8H 4 Days #12 tablet levoFLOXacin [Levofloxacin] 750 mg PO DAILY #4 tablet Simethicone [Mylicon] 80 mg PO Q4H PRN #30 tab PRN Reason: Gas lisinopriL [Zestril] 20 mg PO DAILY #30 tab Diet: Regular Activity Restrictions: Activity as Tolerated Shower Restrictions: No Driving Restrictions: No Instruction Topics: ED Constipation, Hernia Surg Inguinal Groin Ch Plan of Treatment: Avoid heavy lifting. Hold Rinvoq until seen by PCP. Follow-up with general surgery regarding hernia repair. Additional Instructions or Follow Up instructions: You were seen in the emergency department for constipation and abdominal pain. Please follow-up with your primary care provider and return to the emergency department if you have any new or worsening symptoms or other concerns. No Smoking: If you smoke, Please STOP! Call for help. Follow-up with: David Tyler MD [Primary Care Provider] - Jorge Rao MD [Provider Admit Priv/Credential] -
--- NOTE | 2023-02-22 10:45 | DISCHARGE SUMMARY ---
Discharge Summary Discharge Date: 02/22/23 Discharging Provider: Ramiro Primary Care Provider: David Tyler Code Status: Attempt Resuscitation Condition at Discharge: Good Discharge Disposition: 01 Home, Self Care - DIAGNOSES Discharge Diagnoses with Status of Each Condition: Diverticulitis - Transitioned to PO antibiotics. Right inguinal hernia - Evaluated by general surgery. Recommended outpatient follow-up for repair. - HPI History of Present Illness: This is a 67-year-old male with a history of morbid obesity, DALI, psoriatic arth ritis and hypertension. He presents with complaints of constipation for 5 days and slowly progressively worsening diffuse abdominal pain. He denied vomiting but has had nausea starting the last 2 days. There was no diarrhea. He had no fever but did have chills. He presented to the ER today with these complaints and initially had management with trying to relieve his constipation with a mineral oil enema, and he had 6 tiny liquidy brown BMs. This did not relieve his pain. Labs came back showing an elevated white count of 14 and Lactic Acid level of 2.2, then repeat was 2.[address] abdomen/pelvis done. This showed that he has diverticulitis of the sigmoid colon with microperforation, since free air is seen. He received iv Toradol and iv Morphine for pain, IV Zofran and got 1 dose of Zosyn IV. A surgery consult was obtained and the surgeon felt he does not have a "surgical abdomen", but has uncomplicated diverticulitis and advised admission and antibiotics and bowel rest. The ED provider then spoke to me about this patient. I discussed CODE STATUS with this patient and he wants to be a DNR. - CONSULTS | PROCEDURES Consultations: General surgery - HOSPITAL COURSE Hospital Course: Patient is a 67-year-old male who presented to the ED due to complaints of abdom inal pain. A CT abdomen/pelvis was performed which revealed diverticulitis of the sigmoid colon with microperforation. Patient was admitted and eval by general surgery who recommended nonoperative management. Patient was started on IV Zosyn and IV fluids. Over his hospital course, he did begin tolerating a diet and his symptoms improved. Course was complicated by an inguinal hernia. This was evaluated by general surgery who recommended outpatient evaluation. Patient was subsequently discharged on oral levofloxacin and metronidazole for total of 10 days of antibiotics. Of note his lisinopril was increased to 20 mg daily. Currently follow-up on blood pressure. I did instruct him ot hold his Rinvoq while he is on antibiotics. - ALLERGIES Allergies/Adverse Reactions: Allergies Allergy/AdvReac Type Severity Reaction Status Date / Time latex Allergy Unknown Verified 02/16/23 01:38 Opioids - Morphine Analogues Allergy Nausea Verified 02/16/23 01:38 pollen extracts Allergy Respiratory Verified 02/16/23 01:38 - MEDICATIONS Home Medications: Ambulatory Orders Medication Instructions Recorded Confirmed Meloxicam 15 mg PO DAILY PRN 02/16/23 02/16/23 Acetaminophen [Tylenol] 650 mg PO Q4HR PRN 30 Days #30 tab 02/22/23 Fluticasone/Vilanterol [Breo 1 each IH DAILY #1 02/22/23 02/16/23 Ellipta 200-25 Mcg Inhalr] Simethicone [Mylicon] 80 mg PO Q4H PRN #30 tab 02/22/23 levoFLOXacin [Levofloxacin] 750 mg PO DAILY #4 tablet 02/22/23 lisinopriL [Zestril] 20 mg PO DAILY #30 tab 02/22/23 metroNIDAZOLE [Flagyl] 500 mg PO Q8H 4 Days #12 tablet 02/22/23 traMADol [Ultram] 50 mg PO Q4HR PRN #15 tab 02/22/23 - PHYSICAL EXAM AT DISCHARGE General Appearance: positive: No acute distress, Alert Respiratory: positive: Chest non-tender, No respiratory distress, Breath sounds nml Cardiovascular: positive: Regular rate & rhythm, No murmur, No gallop Abdomen: positive: Non-tender, Tenderness. negative: No distention Physical Exam Other/Comments: Scrotal swelling - LABS Result Diagrams: 02/22/23 04:09 02/22/23 04:09 - FOLLOW UP Follow Up: Follow-up with general surgery and PCP. - TIME SPENT Time Spent in Discharge (Minutes): 35
[2023-02-22 12:03] VITALS: BP 137/84; O2SAT 92
[2023-02-23] MEDS ORDERED: lisinopriL 20 MG TABLET PO SCH (09:00)
== END 2023-02-22 12:30 | disposition home or self-care (01) | DRG 392 ==
LOC: ED 01:18 → MS3 14:20
PROVIDERS: ADMIT Internal Medicine; ATTEND Family Medicine
DX: K57.20 Diverticulitis of large intestine with perforation and abscess without bleeding (principal); R11.0 Nausea; Z68.41 Body mass index [BMI] 40.0-44.9, adult; G47.33 Obstructive sleep apnea (adult) (pediatric); E66.01 Morbid (severe) obesity due to excess calories; K40.90 Unilateral inguinal hernia, without obstruction or gangrene, not specified as recurrent; I10 Essential (primary) hypertension; L40.50 Arthropathic psoriasis, unspecified; Z66 Do not resuscitate; E78.00 Pure hypercholesterolemia, unspecified; J45.909 Unspecified asthma, uncomplicated; J43.9 Emphysema, unspecified; G47.30 Sleep apnea, unspecified; G89.29 Other chronic pain; M54.9 Dorsalgia, unspecified; Z87.891 Personal history of nicotine dependence; Z79.899 Other long term (current) drug therapy; Z88.5 Allergy status to narcotic agent; Z91.040 Latex allergy status; D72.829 Elevated white blood cell count, unspecified; E88.810 Metabolic syndrome; E11.65 Type 2 diabetes mellitus with hyperglycemia; N50.89 Other specified disorders of the male genital organs; R82.998 Other abnormal findings in urine
CPT/HCPCS: 36415; 74177; 76870; 80048; 80053; 81001; 83036; 83605; 83690; 83735; 84100; 85025; 93975; 94640; 96365; 96375; 99284; 99285; A9270; J0131; J7626; Q9967; 81003; 87086

== ENCOUNTER 2023-03-06 08:00 | Outpatient (CLI) | payer MEDICARE, MEDICAID ==
[2023-03-06 12:16] LABS: BILIRUBIN,URINE NEGATIVE (NEGATIVE); GLUCOSE, URINE (UA) NEGATIVE (NEGATIVE); KETONES,URINE (UA) NEGATIVE (NEGATIVE); LEUKOCYTE ESTERASE, URINE NEGATIVE (NEGATIVE); NITRITE,URINE NEGATIVE (NEGATIVE); OCCULT BLOOD,URINE NEGATIVE (NEGATIVE); PH,URINE 5.5 PH (5.0-7.5); PROTEIN,URINE NEGATIVE (NEGATIVE); UROBILINOGEN,URINE 0.2 (NORMAL) E.U./dL (NORMAL)
[2023-03-06 12:29] LABS: BACTERIA,URINE Rare /HPF (None Seen); CLARITY,URINE HAZY (CLEAR); CRYSTALS,URINE 26-50 Uric Acid /LPF; RBC,URINE None Seen /HPF (0-5); SQUAMOUS EPITHELIAL CELL,UR NONE SEEN (<= Few); WBC,URINE 0-3 /HPF (0-3)
== END 2023-03-06 23:59 | disposition home or self-care (01) ==
LOC: LAB.N 08:00
PROVIDERS: ATTEND Physician Assistant
DX: R39.11 Hesitancy of micturition (principal)
CPT/HCPCS: 81001; 87086

== ENCOUNTER 2023-03-06 11:19 | Outpatient (CLI) | payer MEDICARE, MEDICAID ==
[2023-03-06] MEDS ORDERED: iohexoL-300 100 ML VIAL ONE (11:30)
[2023-03-06] MEDS ORDERED: DIATRIZOATE MEGLU/DIATRIZO SOD 30 ML BOTTLE PO ONE (11:41)
--- NOTE | 2023-03-06 16:14 | CT Report ---
PROCEDURE: Abdomen/Pelvis W INDICATIONS: DIVERTICULITIS CONTRAST: 100ml omni 300 TECHNIQUE: After the administration of intravenous contrast, a CT scan of the abdomen and pelvis was performed. Images were recorded and evaluated at appropriate window settings. Reformats: coronal and sagittal. F or radiation dose reduction, the following was used: automated exposure control, adjustment of mA and /or kV according to patient size. COMPARISON: 02/16/2023. FINDINGS: Image quality: Excellent. Lung bases and heart: Unremarkable. Liver: No solid mass. Mild diffuse hepatic steatosis. Gallbladder and biliary tree: No radiopaque stones or wall thickening. No biliary dilation. Spleen: No splenomegaly. Pancreas: There is a cystic lesion of the pancreatic head which was previously present as well, measu ring 1.4 x 2.3 x 2.7 cm. It may potentially represent IPMN. Adrenals: No adrenal nodule. Kidneys and ureters: No hydronephrosis. No renal cystic lesion which requires follow up. No solid mas s. Bowel and peritoneum: Advanced sigmoid diverticulosis. Inflammatory change in the surrounding fat is significantly improved. Findings may potentially simply represent resolving acute diverticulitis. How ever, a small amount of the sigmoid colon extends down into a left inguinal hernia, as does a portion of the bladder. There is a stone present within the portion of the bladder that is in the right ingu inal hernia. Additionally, there is a scrotal abscess, which measures at least 6.0 cm. Lymph nodes: No central or retroperitoneal adenopathy. Vessels: No infrarenal aortic aneurysm. PELVIS Reproductive organs: Unremarkable. Bladder: No abnormal wall thickening, accounting for underdistention. Pelvic lymph nodes: No pelvic adenopathy by size criteria. Bones: No aggressive osseous abnormality. Other: No significant ventral or inguinal hernia. IMPRESSION: 1. Significant improvement in acute diverticulitis previously seen in a patient with extensive sigmoi d diverticulosis. 2. However, there is a right inguinal hernia containing both fat and a small amount of sigmoid colon, as well as a portion of the bladder. These contents extend down into the scrotal region, where there is a scrotal abscess, the sequelae of acute diverticulitis, as well as a small bladder stone. 3. Right scrotal abscess, as described above, secondary to herniated sigmoid colon colon into the ing uinal canal. 4. Present on both studies, as well, is a cystic lesion of the pancreatic head measuring 2.7 cm in ma ximum diameter. Consider IPMN. Comment: Recommend nonemergent pancreatic protocol MRI with and without contrast after acute symptoms resolve to further evaluate the head of the pancreas. Reviewed by: Michael Anthony MD on 03/06/2023 4:12 PM PST Approved by: Michael Anthony MD on 03/06/2023 4:12 PM PST Station ID: [id number]
== END 2023-03-06 11:20 | disposition home or self-care (01) ==
LOC: DI 11:19
PROVIDERS: ATTEND Physician Assistant
DX: K57.92 Diverticulitis of intestine, part unspecified, without perforation or abscess without bleeding (principal); K40.90 Unilateral inguinal hernia, without obstruction or gangrene, not specified as recurrent; N49.2 Inflammatory disorders of scrotum; N21.0 Calculus in bladder; K86.2 Cyst of pancreas; R39.11 Hesitancy of micturition
CPT/HCPCS: 74177; 81001; Q9963; Q9967; 87086

== ENCOUNTER 2023-03-10 20:34 | Outpatient (CLI) | payer MEDICARE, MEDICAID | END 2023-03-10 23:59 | disposition critical access hospital (66) | LOC: EMS 20:34 | DX: R50.9 Fever, unspecified (principal); R41.0 Disorientation, unspecified | CPT/HCPCS: A0425; A0429 ==

== ENCOUNTER 2023-03-10 21:15 | Emergency (ER) | payer MEDICARE, MEDICAID ==
[2023-03-10 22:10] LABS: BASOPHILS % (AUTO) 0.2 %; EOSINOPHILS % (AUTO) 9.9 %; HCT - HEMATOCRIT 47.9 % (42.0-52.0); HGB - HEMOGLOBIN 15.4 g/dL (14.0-18.0); LYMPHOCYTES % (AUTO) 2.9 %; MEAN CORPUSCULAR HEMOGLOBIN 28.8 pg (27.0-31.0); MEAN CORPUSCULAR HGB CONC 32.2 g/dL (32.0-36.0); MEAN CORPUSCULAR VOLUME 89.7 fL (80.0-94.0); MEAN PLATELET VOLUME 10.4 fL (7.4-11.4); MONOCYTES % (AUTO) 4.9 %; NEUTROPHILS % (AUTO) 80.3 %; PLT - PLATELET COUNT 263 10^3/uL (130-450); RED BLOOD COUNT 5.34 10^6/uL (4.70-6.10); RED CELL DISTRIBUTION WIDTH 14.7 % (12.0-15.0); WHITE BLOOD COUNT 10.2 x10^3/uL (4.8-10.8)
[2023-03-10 22:14] LABS: ABNORMAL LYMPHS % (MANUAL) 0 %
[2023-03-10 22:29] LABS: ALBUMIN 3.7 g/dL (3.2-5.5); BILIRUBIN,TOTAL 0.4 mg/dL (0.2-1.0); CALCIUM 8.8 mg/dL (8.5-10.3); CREATININE 1.3 mg/dL (0.6-1.3); POTASSIUM 4.6 mmol/L (3.5-4.5); TOTAL PROTEIN 7.5 g/dL (6.4-8.9)
--- NOTE | 2023-03-10 22:30 | ED Physician Documentation ---
PD HPI ABD PAIN - Stated complaint Stated Complaint: FEVER/ABD ABCESS - Chief complaint Chief Complaint: Fever - History obtained from History obtained from: Patient - Additional information Additional information: Patient is a 67-year-old male presenting for evaluation of a fevers developing yesterday. He was recently admitted to our hospital with diverticulitis and late February. He had another CT scan this week that showed a scrotal abscess and is scheduled to have drainage of this by Dr. Kirby on Sunday. Patient reports having fevers yesterday of 103. He is on Bactrim and Flagyl which she has been taking. He says the swelling to the scrotum has gotten a little bit better. Reports some nausea but no vomiting or diarrhea. No chest pain, cough, congestion. Denies any difficulties with urination. Review of Systems Constitutional: reports: Fever Cardiac: denies: Chest pain / pressure Respiratory: denies: Dyspnea GI: reports: Nausea. denies: Abdominal Pain, Vomiting : reports: Other (Scrotal swelling). denies: Dysuria PD PAST MEDICAL HISTORY - Past Medical History Cardiovascular: Hypertension Respiratory: COPD Endocrine/Autoimmune: None GI: Chronic constipation, Other : None HEENT: Chronic hearing loss Psych: None Musculoskeletal: Osteoarthritis, Rheumatoid arthritis, Other Derm: Psoriasis - Past Surgical History Past Surgical History: No - Present Medications Home Medications: Ambulatory Orders Medication Instructions Recorded Confirmed Meloxicam 15 mg PO DAILY PRN 02/16/23 02/16/23 Acetaminophen [Tylenol] 650 mg PO Q4HR PRN 30 Days #30 tab 02/22/23 Fluticasone/Vilanterol [Breo 1 each IH DAILY #1 02/22/23 02/16/23 Ellipta 200-25 Mcg Inhalr] Simethicone [Mylicon] 80 mg PO Q4H PRN #30 tab 02/22/23 levoFLOXacin [Levofloxacin] 750 mg PO DAILY #4 tablet 02/22/23 lisinopriL [Zestril] 20 mg PO DAILY #30 tab 02/22/23 metroNIDAZOLE [Flagyl] 500 mg PO Q8H 4 Days #12 tablet 02/22/23 traMADol [Ultram] 50 mg PO Q4HR PRN #15 tab 02/22/23 - Allergies Allergies/Adverse Reactions: Allergies Allergy/AdvReac Type Severity Reaction Status Date / Time latex Allergy Unknown Verified 01/06/24 21:28 Opioids - Morphine Analogues Allergy Nausea Verified 03/10/23 21:28 pollen extracts Allergy Respiratory Verified 03/10/23 21:28 - Social History Does the pt smoke?: No Smoking Status: Never smoker Does the pt drink ETOH?: No Does the pt have substance abuse?: No - Immunizations Immunizations are current?: Yes - POLST Patient has POLST: No PD ED PE NORMAL - General General: Alert and oriented X 3, No acute distress, Well developed/nourished - HEENT HEENT: Atraumatic, Moist mucous membranes, Pharynx benign - Neck Neck: Supple, no meningeal sign - Cardiac Cardiac: RRR, Strong equal pulses - Respiratory Respiratory: No respiratory distress, Clear bilaterally - Abdomen Abdomen: Normal bowel sounds, Soft, Non tender, Non distended - Male Male : Other (Right-sided scrotal swelling and induration) - Neuro Neuro: Normal speech Results - Vitals Vitals: Vital Signs - 24 hr 03/10/23 21:25 Temperature 37.4 C Heart Rate 99 Respiratory 24 Rate Blood Pressure 130/75 O2 Saturation 93 Oxygen O2 Source Room air - Labs Labs: Laboratory Tests 03/10/23 03/10/23 03/10/23 22:03 22:03 22:03 WBC 10.2 RBC 5.34 Hgb 15.4 Hct 47.9 MCV 89.7 MCH 28.8 MCHC 32.2 RDW 14.7 Plt Count 263 MPV 10.4 Neut # (Auto) Not Reportable Lymph # (Auto) Not Reportable Ferry # (Auto) Not Reportable Eos # (Auto) Not Reportable Baso # (Auto) Not Reportable Absolute Nucleated RBC Not Reportable Total Counted 100 Band Neuts % (Manual) 9 Abnorm Lymph % (Manual) 0 Myelocytes % 2 H Nucleated RBC % Not Reportable Neutrophils # (Manual) 7.5 H Lymphocytes # (Manual) 0.5 L Monocytes # (Manual) 0.6 Eosinophils # (Manual) 1.3 H Basophils # (Manual) 0.0 Differential Comment MANUAL DIFFERENTIAL WBC Morphology PELGER HUET ANOMALY Platelet Estimate NORMAL (130-450,000) Platelet Morphology NORMAL APPEARANCE RBC Morph Micro Appear NORMAL APPEARANCE Sodium 129 L Potassium 4.6 H Chloride 98 L Carbon Dioxide 22 Anion Gap 9.0 BUN 18 Creatinine 1.3 Estimated GFR (MDRD) 55 L Glucose 124 H Lactic Acid 0.7 Calcium 8.8 Total Bilirubin 0.4 AST 26 ALT 35 Alkaline Phosphatase 47 Total Protein 7.5 Albumin 3.7 Globulin 3.8 Albumin/Globulin Ratio 1.0 Lipase 28 Nasal Adenovirus (PCR) Nasal B. parapertussis DNA (PCR) Nasal Coronavir 229E PCR Nasal Coronavir HKU1 PCR Nasal Coronavir NL63 PCR Nasal Coronavir OC43 PCR Nasal Enterovir/Rhinovir PCR Nasal Influenza B PCR Nasal Influenza A PCR Nasal Parainfluen 1 PCR Nasal Parainfluen 2 PCR Nasal Parainfluen 3 PCR Nasal Parainfluen 4 PCR Nasal RSV (PCR) Nasal B.pertussis DNA PCR Nasal C.pneumoniae (PCR) Moisés Human Metapneumo PCR Nasal M.pneumoniae (PCR) Nasal SARS-CoV-2 (PCR) 03/10/23 22:47 WBC RBC Hgb Hct MCV MCH MCHC RDW Plt Count MPV Neut # (Auto) Lymph # (Auto) Ferry # (Auto) Eos # (Auto) Baso # (Auto) Absolute Nucleated RBC Total Counted Band Neuts % (Manual) Abnorm Lymph % (Manual) Myelocytes % Nucleated RBC % Neutrophils # (Manual) Lymphocytes # (Manual) Monocytes # (Manual) Eosinophils # (Manual) Basophils # (Manual) Differential Comment WBC Morphology Platelet Estimate Platelet Morphology RBC Morph Micro Appear Sodium Potassium Chloride Carbon Dioxide Anion Gap BUN Creatinine Estimated GFR (MDRD) Glucose Lactic Acid Calcium Total Bilirubin AST ALT Alkaline Phosphatase Total Protein Albumin Globulin Albumin/Globulin Ratio Lipase Nasal Adenovirus (PCR) NOT DETECTED Nasal B. parapertussis DNA (PCR) NOT DETECTED Nasal Coronavir 229E PCR NOT DETECTED Nasal Coronavir HKU1 PCR NOT DETECTED Nasal Coronavir NL63 PCR NOT DETECTED Nasal Coronavir OC43 PCR NOT DETECTED Nasal Enterovir/Rhinovir PCR NOT DETECTED Nasal Influenza B PCR NOT DETECTED Nasal Influenza A PCR NOT DETECTED Nasal Parainfluen 1 PCR NOT DETECTED Nasal Parainfluen 2 PCR NOT DETECTED Nasal Parainfluen 3 PCR NOT DETECTED Nasal Parainfluen 4 PCR NOT DETECTED Nasal RSV (PCR) NOT DETECTED Nasal B.pertussis DNA PCR NOT DETECTED Nasal C.pneumoniae (PCR) NOT DETECTED Moisés Human Metapneumo PCR NOT DETECTED Nasal M.pneumoniae (PCR) NOT DETECTED Nasal SARS-CoV-2 (PCR) NOT DETECTED PD Medical Decision Making - ED course ED course: Pt with known scrotal abscess with scheduled drainage by urology in 2 days presenting for evaluation of fevers. Reports tmax 103. No antipyretics today. Reports scrotal swelling improved. VSS. Labs including CBC, chemistries, lactic and BC x 2 and resp swab ordered. No significant findings of lab results. CT abd/pelvis ordered and pending at time of shift change. Pt signed out to oncoming provider. Departure - Departure Forms: PCP List
[2023-03-10 23:41] LABS: BAND NEUTROPHILS % (MANUAL) 9 %; EOSINOPHILS # (MANUAL) 1.3 10^3/uL (0-0.7); LYMPHOCYTES # (MANUAL) 0.5 10^3/uL (1.5-3.5); LYMPHOCYTES % (MANUAL) 5 %; MONOCYTES # (MANUAL) 0.6 10^3/uL (0.0-1.0); MYELOCYTES % (MANUAL) 2 %; NEUTROPHILS # (MANUAL) 7.5 10^3/uL (1.5-6.6)
[2023-03-10 23:43] LABS: DIFFERENTIAL COMMENT MANUAL DIFFERENTIAL; PLATELET ESTIMATE, MANUAL NORMAL (130-450,000) (NORMAL); PLATELET MORPHOLOGY NORMAL APPEARANCE (NORMAL); RBC MORPHOLOGY (MULTIPLE) NORMAL APPEARANCE (NORMAL); WBC MORPHOLOGY (MULTIPLE) PELGER HUET ANOMALY (NORMAL)
[2023-03-11 00:22] LABS: B. PARAPERTUSSIS- RESP PCR PAN NOT DETECTED; B. PERTUSSIS- RESP PCR PANEL NOT DETECTED; C. PNEUMONIAE- RESP PCR PANEL NOT DETECTED; CORONAVIRUS 229E-RESP PCR NOT DETECTED; CORONAVIRUS HKU1-RESP PCR NOT DETECTED; CORONAVIRUS NL63-RESP PCR NOT DETECTED; CORONAVIRUS OC43-RESP PCR NOT DETECTED; HUMAN METAPNEUMOVIRUS NOT DETECTED; INFLUENZA A- RESP PCR PANEL NOT DETECTED; INFLUENZA B - RESP PCR PANEL NOT DETECTED; M. PNEUMONIAE- RESP PCR PANEL NOT DETECTED; PARAINFLUENZA VIRUS 1 NOT DETECTED; PARAINFLUENZA VIRUS 2 NOT DETECTED; PARAINFLUENZA VIRUS 3 NOT DETECTED; PARAINFLUENZA VIRUS 4 NOT DETECTED; RHINOVIRUS/ENTEROVIRUS NOT DETECTED; RSV- RESP PCR PANEL NOT DETECTED; SARS-CoV-2 -RESP PCR PANEL NOT DETECTED
[2023-03-11] MEDS ORDERED: iohexoL-300 100 ML VIAL IVP ONE (00:37)
--- NOTE | 2023-03-11 00:53 | CT Report ---
PROCEDURE: Abdomen/Pelvis W INDICATIONS: scrotal abscess/now with fevers CONTRAST: 100 ML OMNI 300 TECHNIQUE: After the administration of intravenous contrast, a CT scan of the abdomen and pelvis was performed. Images were recorded and evaluated at appropriate window settings. Reformats: coronal and sagittal. F or radiation dose reduction, the following was used: automated exposure control, adjustment of mA and /or kV according to patient size. COMPARISON: 03/06/2023 and 02/16/2023. FINDINGS: Image quality: Excellent. Lung bases and heart: Scattered atelectasis in posterior and lateral aspect of bilateral lung bases a re seen. Heart size is normal, no pericardial effusion. Liver: No solid mass. Mild to moderate hepatic steatosis is again seen unchanged from prior study. Gallbladder and biliary tree: No radiopaque stones or wall thickening. No biliary dilation. Spleen: No splenomegaly. Pancreas: No pancreatic ductal dilation. Possible IPM and involving right femoral head is again seen unchanged in size and appearance from previous studies. Adrenals: No adrenal nodule. Kidneys and ureters: No hydronephrosis. Nonobstructing right renal calculi are seen. No renal cystic lesion which requires follow up. No solid mass. Bowel and peritoneum: There is no bowel obstruction. No gastric or small bowel wall thickening. Exten sive colonic diverticulosis is seen. Again noted is pericolonic fat stranding and colonic wall thicke vince involving proximal sigmoid colon in left lower quadrant suggestive of subacute diverticulitis. N o abscess collection. No new area of abnormal colonic wall thickening. Lymph nodes: No central or retroperitoneal adenopathy. Vessels: No infrarenal aortic aneurysm. PELVIS Reproductive organs: Significant scrotal wall thickening and adjacent fat stranding is noted particul narda involving right scrotal sac.. There is a large peripherally enhancing fluid collection within th e right scrotal sac measures up to 4.7 x 4.2 x 10.5 cm in size series 2 image 115 and a series 5 imag e 28 with surrounding fat stranding consistent with an abscess collection. Bladder: No abnormal wall thickening, accounting for underdistention. Pelvic lymph nodes: No pelvic adenopathy by size criteria. Bones: No aggressive osseous abnormality. Other: Large right inguinal hernia is seen containing a portion of the distal sigmoid colon loop as w ell as anterolateral aspect of urinary bladder. Left inguinal hernia is also noted containing fat onl y. IMPRESSION: 1. Finding is consistent with significant scrotal sialitis with large right scrotal abscess collectio n as described above. 2. Large right inguinal hernia containing portion of sigmoid colon and urinary bladder. Left inguinal hernia containing fat only. 3. Subacute appearing diverticulitis involving proximal to mid sigmoid colon. No peritoneal free flui d of free air. No other abscess collection is seen. 4. Other findings are as described above not significantly changed from prior studies. Reviewed by: Zhang Osman MD on 03/11/2023 12:52 AM PST Approved by: Zhang Osman MD on 03/11/2023 12:52 AM PST Station ID: [id number]
[2023-03-11] MEDS ORDERED: ONDANSETRON 4 MG/2 ML VIAL IVP STA (02:55)
--- NOTE | 2023-03-11 02:55 | ED Physician Documentation ---
ED Addendum - Addendum Addendum: 03/11/23 17:40 I received sign-out/turn over of care from Dr. Barrientos; please see her note for complete H+P. In brief, patient recently admitted for diverticulitis with microperforation (admitted mid-February). He had an outpatient CT scan A/P 03/06 which revealed scrotal abscess. He is currently on bactrim and flagyl and is scheduled to have surgical drainage of the scrotal abscess this Sunday (03/12/23). He presents to ED [place] due to fevers. He tells me Tmax was 101, although my colleague's note indicates patient was reporting Tmax 103 on her HPI. His chief and only concern is fever, as he says the scrotal pain and swelling have been improving. At the time of signout, CT A/P pending. This demonstrates interval increase in size of the scrotal abscess (previously was 6cm largest dimension, tonight 10.6 cm) as well as findings c/w scrotal cellulitis. On exam, he is in NAD. There is marked right hemiscrotal erythema and swelling. I discussed this case with Dr. Kirby (urology on-call [facility] with whom patient is scheduled for surgery tomorrow, 03/12). Dr. Kirby requests blood cultures to be drawn and sent; Dr. Barrientos has already ordered two sets of blood cultures which have been drawn, results pending. Dr. Kirby says patient is safe and appropriate for d/c home and proceed with plan for surgery on Sunday. I discussed this with patient and he is comfortable with this plan.
[2023-03-11 03:39] VITALS: BP 108/74; O2SAT 99
== END 2023-03-11 03:31 | disposition home or self-care (01) ==
LOC: EDUNIT# → ED 21:15
DX: N49.2 Inflammatory disorders of scrotum (principal); R50.9 Fever, unspecified; I10 Essential (primary) hypertension; Z11.52 Encounter for screening for COVID-19
CPT/HCPCS: 36415; 74177; 80053; 83605; 83690; 85025; 87040; 87633; 96374; 99284; Q9967

== ENCOUNTER 2023-04-13 08:25 | Outpatient (CLI) | payer MEDICARE, MEDICAID ==
[2023-04-13 15:20] LABS: BASOPHILS # (AUTO) 0.1 10^3/uL (0.0-0.1); BASOPHILS % (AUTO) 0.8 %; EOSINOPHILS # (AUTO) 0.5 10^3/uL (0.0-0.7); EOSINOPHILS % (AUTO) 6.5 %; HCT - HEMATOCRIT 43.2 % (42.0-52.0); HGB - HEMOGLOBIN 13.1 g/dL (14.0-18.0); LYMPHOCYTES # (AUTO) 1.7 10^3/uL (1.5-3.5); LYMPHOCYTES % (AUTO) 21.9 %; MEAN CORPUSCULAR HEMOGLOBIN 29.4 pg (27.0-31.0); MEAN CORPUSCULAR HGB CONC 30.3 g/dL (32.0-36.0); MEAN CORPUSCULAR VOLUME 97.1 fL (80.0-94.0); MEAN PLATELET VOLUME 10.7 fL (7.4-11.4); MONOCYTES # (AUTO) 0.8 10^3/uL (0.0-1.0); MONOCYTES % (AUTO) 10.4 %; NEUTROPHILS # (AUTO) 4.5 10^3/uL (1.5-6.6); NEUTROPHILS % (AUTO) 59.3 %; PLT - PLATELET COUNT 303 10^3/uL (130-450); RED BLOOD COUNT 4.45 10^6/uL (4.70-6.10); RED CELL DISTRIBUTION WIDTH 16.8 % (12.0-15.0); WHITE BLOOD COUNT 7.5 x10^3/uL (4.8-10.8)
[2023-04-13 16:27] LABS: ALBUMIN 3.6 g/dL (3.2-5.5); BILIRUBIN,TOTAL 0.3 mg/dL (0.2-1.0); CALCIUM 9.5 mg/dL (8.5-10.3); CREATININE 0.8 mg/dL (0.6-1.3); POTASSIUM 4.5 mmol/L (3.5-4.5); TOTAL PROTEIN 7.3 g/dL (6.4-8.9)
[2023-04-13 20:52] LABS: ESTIMATED AVERAGE GLUCOSE 134 mg/dL (70-100); HEMOGLOBIN A1c% 6.3 % (4.27-6.07)
== END 2023-04-13 08:26 | disposition home or self-care (01) ==
LOC: LAB.S 08:25
PROVIDERS: ATTEND Family Medicine
DX: N49.2 Inflammatory disorders of scrotum (principal); K57.92 Diverticulitis of intestine, part unspecified, without perforation or abscess without bleeding; E11.9 Type 2 diabetes mellitus without complications; G47.33 Obstructive sleep apnea (adult) (pediatric); E88.810 Metabolic syndrome; I10 Essential (primary) hypertension
CPT/HCPCS: 36415; 80053; 83036; 85025

== ENCOUNTER 2023-05-17 08:11 | Emergency (ER) | payer MEDICARE, MEDICAID ==
[2023-05-17 08:33] VITALS: O2SAT 95
--- NOTE | 2023-05-17 08:46 | ED Physician Documentation ---
History of Present Illness - Stated complaint Stated Complaint: LT EAR PLUGGED - Chief complaint Chief Complaint: Heent - History obtained from History obtained from: Patient - Additonal information Additional information: Patient comes to the emergency department chief complaint of left ear plugged. He states that yesterday, he had an itch in his ear so he stuck his finger in the external canal and wiggled his ear around several times to try to get rid of the itch. He thinks he dislodge some cerumen and jammed it in his ear because he is having difficulty hearing out of that ear now. He states it just feels like it is plugged and like it needs to pop. He denies any fever or ear pain prior. He has not had an upper respiratory infection. He denies any drainage from the ear. No other complaints at this time. PD PAST MEDICAL HISTORY - Past Medical History Cardiovascular: Hypertension Respiratory: COPD Endocrine/Autoimmune: None GI: Chronic constipation, Other : None HEENT: Chronic hearing loss Psych: None Musculoskeletal: Osteoarthritis, Rheumatoid arthritis, Other Derm: Psoriasis - Past Surgical History Past Surgical History: No - Present Medications Home Medications: Ambulatory Orders Medication Instructions Recorded Confirmed Acetaminophen [Tylenol] 650 mg PO Q4HR PRN 30 Days #30 tab 02/22/23 05/17/23 Fluticasone/Vilanterol [Breo 1 each IH DAILY #1 02/22/23 05/17/23 Ellipta 200-25 Mcg Inhalr] lisinopriL [Zestril] 20 mg PO DAILY #30 tab 02/22/23 05/17/23 - Allergies Allergies/Adverse Reactions: Allergies Allergy/AdvReac Type Severity Reaction Status Date / Time latex Allergy Unknown Verified 05/17/23 08:25 Opioids - Morphine Analogues Allergy Nausea Verified 05/17/23 08:25 pollen extracts Allergy Respiratory Verified 05/17/23 08:25 - Social History Does the pt smoke?: No Smoking Status: Never smoker Does the pt drink ETOH?: No Does the pt have substance abuse?: No - Immunizations Immunizations are current?: Yes - POLST Patient has POLST: No PD ED PE NORMAL - Vitals Vital signs reviewed: Yes - General General: Alert and oriented X 3, No acute distress, Well developed/nourished - HEENT HEENT: Atraumatic, PERRL, EOMI, Moist mucous membranes, Other (Right external auditory canal clear and without cerumen. Left external auditory canal with extensive cerumen, obscuring of the tympanic membrane.) - Cardiac Cardiac: RRR, No murmur - Respiratory Respiratory: Clear bilaterally - Abdomen Abdomen: Normal bowel sounds, Soft, Non tender, Non distended - Derm Derm: Warm and dry - Extremities Extremities: No deformity - Neuro Neuro: Alert and oriented X 3 - Psych Psych: Normal mood, Normal affect Results - Vitals Vitals: Oxygen O2 Source Room air PD Medical Decision Making - ED course Complexity details: considered differential, d/w patient ED course: The patient's left ear was irrigated in the emergency department. TM clear on re-evaluation. Departure - Departure Disposition: 01 Home, Self Care Clinical Impression: Cerumen impaction Qualifiers: Laterality: left Qualified Code(s): H61.22 - Impacted cerumen, left ear Condition: Stable Instructions: ED Earwax Removal Forms: PCP List Discharge Date/Time: 05/17/23 10:05
[2023-05-17 10:12] VITALS: BP 132/78
== END 2023-05-17 10:05 | disposition home or self-care (01) ==
LOC: ED 08:11
DX: H61.22 Impacted cerumen, left ear (principal); I10 Essential (primary) hypertension; J44.9 Chronic obstructive pulmonary disease, unspecified; Z79.51 Long term (current) use of inhaled steroids; Z79.899 Other long term (current) drug therapy; Z91.040 Latex allergy status
CPT/HCPCS: 99282; 99283

== ENCOUNTER 2023-07-20 06:58 | Outpatient (CLI) | payer MEDICARE, MEDICAID ==
--- NOTE | 2023-07-20 14:56 | XRAY Report ---
PROCEDURE: Chest 2V INDICATIONS: POSITIVE TB TEST TECHNIQUE: 2 views of the chest were acquired. COMPARISON: Chest x-ray 11/12/2020 FINDINGS: Surgical changes and devices: None. Lungs and pleura: No pleural effusions or pneumothorax. Lungs are clear. Mediastinum: Mediastinal contours appear normal. Heart size is mildly prominent. Bones and chest wall: No suspicious bony lesions. Overlying soft tissues appear unremarkable. IMPRESSION: No acute cardiopulmonary process. Reviewed by: Reyna Guy MD on 07/20/2023 2:55 PM PDT Approved by: Reyna Guy MD on 07/20/2023 2:55 PM PDT Station ID: [id number]
== END 2023-07-20 06:59 | disposition home or self-care (01) ==
LOC: DI 06:58
PROVIDERS: ATTEND Specialist/Technologist Athletic Trainer
DX: R76.12 Nonspecific reaction to cell mediated immunity measurement of gamma interferon antigen response without active tuberculosis (principal)
CPT/HCPCS: 81599

== ENCOUNTER 2023-08-19 17:23 | Emergency (ER) | payer MEDICARE, MEDICAID ==
[2023-08-19] MEDS: KETOROLAC 30 MG/ML VIAL IVP STA (18:46)
[2023-08-19 18:48] LABS: BASOPHILS # (AUTO) 0.1 10^3/uL (0.0-0.1); BASOPHILS % (AUTO) 0.6 %; EOSINOPHILS # (AUTO) 0.6 10^3/uL (0.0-0.7); EOSINOPHILS % (AUTO) 6.3 %; HCT - HEMATOCRIT 47.2 % (42.0-52.0); LYMPHOCYTES # (AUTO) 1.9 10^3/uL (1.5-3.5); LYMPHOCYTES % (AUTO) 19.5 %; MEAN CORPUSCULAR HEMOGLOBIN 28.1 pg (27.0-31.0); MEAN CORPUSCULAR HGB CONC 31.8 g/dL (32.0-36.0); MEAN CORPUSCULAR VOLUME 88.6 fL (80.0-94.0); MEAN PLATELET VOLUME 10.3 fL (7.4-11.4); MONOCYTES # (AUTO) 0.9 10^3/uL (0.0-1.0); MONOCYTES % (AUTO) 9.1 %; NEUTROPHILS # (AUTO) 6.2 10^3/uL (1.5-6.6); NEUTROPHILS % (AUTO) 64.1 %; PLT - PLATELET COUNT 273 10^3/uL (130-450); RED BLOOD COUNT 5.33 10^6/uL (4.70-6.10); RED CELL DISTRIBUTION WIDTH 15.1 % (12.0-15.0); WHITE BLOOD COUNT 9.6 x10^3/uL (4.8-10.8)
--- NOTE | 2023-08-19 18:48 | XRAY Report ---
PROCEDURE: Hand 1-2V LT INDICATIONS: Left hand swelling TECHNIQUE: 2 views of the hand(s) acquired. COMPARISON: Correlation is made with the accompanying imaging. FINDINGS: Bones: No fractures or dislocations. No suspicious bony lesions Focal degenerative change is seen i nvolving the first carpometacarpal joint, with milder degenerative changes seen elsewhere. Soft tissues: Generalized soft tissue swelling can be seen of the hand. IMPRESSION: Soft tissue swelling of the hand, without an acute bony abnormality. Focal first carpometacarpal joint degenerative change. Reviewed by: Ye Cardona MD on 08/19/2023 5:47 PM BREE Approved by: Ye Cardnoa MD on 08/19/2023 5:47 PM BREE Station ID: [id number]
--- NOTE | 2023-08-19 18:49 | XRAY Report ---
PROCEDURE: Wrist 1-2V LT INDICATIONS: left hand swelling TECHNIQUE: 3 views of the wrist were acquired. COMPARISON: Correlation is made with the accompanying imaging. FINDINGS: Bones: No fractures or dislocations. No suspicious bony lesions. There are degenerative changes see n, which are worst involving the first carpal metacarpal joint. Soft tissues: Generalized soft tissue swelling can be seen. IMPRESSION: Generalized soft tissue swelling, without an acute focal bony abnormality. Please correlate with focal tenderness. If there is point tenderness (or other clinical concern for a fracture not seen on these plain films) then please consider a dedicated CT study or a short term fo llow up plain film series for further evaluation. Reviewed by: Ye Cardona MD on 08/19/2023 5:48 PM BREE Approved by: Ye Cardona MD on 08/19/2023 5:48 PM BREE Station ID: [id number]
[2023-08-19 19:03] LABS: ALBUMIN 4.2 g/dL (3.2-5.5); ALBUMIN/GLOBULIN RATIO 1.2 (1.0-2.2); BILIRUBIN,TOTAL 0.4 mg/dL (0.2-1.0); CALCIUM 9.5 mg/dL (8.5-10.3); CREATININE 0.9 mg/dL (0.6-1.3); MAGNESIUM 1.8 mg/dL (1.7-2.3); TOTAL PROTEIN 7.8 g/dL (6.4-8.9)
[2023-08-19] MEDS: LIDOCAINE 2% 10 ML MDV SUBQ ONE (20:43)
[2023-08-19] MEDS: LIDOCAINE 1% 2 ML VIAL SUBQ STA (20:49)
--- NOTE | 2023-08-19 21:32 | ED Physician Documentation ---
History of Present Illness - Stated complaint Stated Complaint: L HAND PX,SWOLLEN - Chief complaint Chief Complaint: Ext Problem - Additonal information Additional information: 68-year-old male with history of hypertension, COPD, chronic constipation, osteoarthritis, rheumatoid arthritis presents emergency department for left hand pain and swelling. Patient says that he went to urgent care and they told him that this was due to a pinched nerve but the pain is increased in severity. No fevers or chills it is not warm to the touch no systemic symptoms of infection. Patient said this is never happened before. No injury or trauma to the left hand. PD PAST MEDICAL HISTORY - Past Medical History Past Medical History: Yes Cardiovascular: Hypertension Respiratory: COPD, Tuberculosis Endocrine/Autoimmune: None GI: Chronic constipation, Other : None HEENT: Chronic hearing loss Psych: None Musculoskeletal: Osteoarthritis, Rheumatoid arthritis, Other Derm: Psoriasis - Past Surgical History Past Surgical History: No - Present Medications Home Medications: Ambulatory Orders Medication Instructions Recorded Confirmed Acetaminophen [Tylenol] 650 mg PO Q4HR PRN 30 Days #30 tab 02/22/23 05/17/23 Fluticasone/Vilanterol [Breo 1 each IH DAILY #1 02/22/23 05/17/23 Ellipta 200-25 Mcg Inhalr] lisinopriL [Zestril] 20 mg PO DAILY #30 tab 02/22/23 05/17/23 Indomethacin [Indocin] 50 mg PO TID 7 Days #42 cap 08/19/23 Sulfamethox/Trimeth 800/160 1 each PO BID #14 tablet 08/20/23 [Bactrim Ds 800/160] cephALEXin [Keflex] 500 mg PO Q6H #28 cap 08/20/23 predniSONE [Deltasone] 10 mg PO [id number] #42 tab 08/20/23 Oxycodone HCl/Acetaminophen 1 - 2 tab PO Q4H PRN #20 tab 08/21/23 [Oxycodone-Acetaminophen 5-325] - Allergies Allergies/Adverse Reactions: Allergies Allergy/AdvReac Type Severity Reaction Status Date / Time latex Allergy Unknown Verified 08/21/23 06:07 pollen extracts Allergy Respiratory Verified 08/21/23 06:07 Opioids - Morphine Analogues AdvReac Mild Nausea Verified 08/21/23 06:07 - Social History Does the pt smoke?: No Smoking Status: Never smoker Does the pt drink ETOH?: No Does the pt have substance abuse?: No - Immunizations Immunizations are current?: Yes - POLST Patient has POLST: No PD ED PE NORMAL - Vitals Vital signs reviewed: Yes - General General: No acute distress, Well developed/nourished - Derm Derm: Normal color, Warm and dry, No rash - Extremities Extremities: Other (Left upper extremity. It is not hot to the touch, no erythema, no skin changes. Pain with flexion extension of the left wrist there is obvious swelling to the left wrist left hand and fingers pain with flexion extension of all 5 fingers positive radial pulse CMS intact) Results - Vitals Vitals: Oxygen O2 Source Room air - Labs Labs: Laboratory Tests 08/19/23 08/19/23 08/19/23 18:10 18:10 18:10 WBC 9.6 RBC 5.33 Hgb 15.0 Hct 47.2 MCV 88.6 MCH 28.1 MCHC 31.8 L RDW 15.1 H Plt Count 273 MPV 10.3 Neut # (Auto) 6.2 Lymph # (Auto) 1.9 Will # (Auto) 0.9 Eos # (Auto) 0.6 Baso # (Auto) 0.1 Absolute Nucleated RBC 0.00 Nucleated RBC % 0.0 Sodium 139 Potassium 4.0 Chloride 106 Carbon Dioxide 27 Anion Gap 6.0 BUN 14 Creatinine 0.9 Estimated GFR (MDRD) 84 L Glucose 108 H Uric Acid Calcium 9.5 Magnesium 1.8 Total Bilirubin 0.4 AST 19 ALT 21 Alkaline Phosphatase 73 Total Protein 7.8 Albumin 4.2 Globulin 3.6 Albumin/Globulin Ratio 1.2 Lipase 14 Procalcitonin Immunoas 0.07 08/19/23 18:10 WBC RBC Hgb Hct MCV MCH MCHC RDW Plt Count MPV Neut # (Auto) Lymph # (Auto) Will # (Auto) Eos # (Auto) Baso # (Auto) Absolute Nucleated RBC Nucleated RBC % Sodium Potassium Chloride Carbon Dioxide Anion Gap BUN Creatinine Estimated GFR (MDRD) Glucose Uric Acid 6.9 Calcium Magnesium Total Bilirubin AST ALT Alkaline Phosphatase Total Protein Albumin Globulin Albumin/Globulin Ratio Lipase Procalcitonin Immunoas - Rads (name of study) Left hand x-ray Relevant Findings:: Final report received, EMP independent interpretation of test, Other (No acute bony abnormalities or findings) PD Medical Decision Making - ED course ED course: He has had no fevers or chills no systemic symptoms of infection. Labs are complete for further evaluation he has no leukocytosis his procalcitonin is also not elevated his hand is not warm to the touch temperature is equal bilaterally making me less suspicious for possible septic arthritis. No electrolyte abnormalities and really unremarkable labs. X-ray does not reveal any bony abnormalities or findings as well. I have high suspicion that this is most likely due to gout. Although uric acid is within normal limits because of the severity of the pain this is the most likely diagnosis. I attempted to do an arthrocentesis but I was unable to get any fluid back. He was started on colchicine here in the emergency department 1.2 mg and then given 0.6 mg 1 hour later a prescription of indomethacin was sent to patient's pharmacy. I am prescribing a short course of short-acting opioid pain medication for this patient. I have reviewed the patients ORTHOPEDIC NURSE and no concerning findings were noted. I have discussed that the opioids are for short term therapy only, and will not be refilled from the ED. Patient is given very strict ER return precautions he is given Ortho referral to follow-up with any sort of follow-up with his adjunct communications faculty member for further evaluation Departure - Departure Disposition: Home, Self Care Clinical Impression: Gout of left wrist Instructions: Gout Follow-Up: [facility] [Provider Group] Prescriptions: Indomethacin [Indocin] 50 mg PO TID 7 Days #42 cap Comments: Thank you for trusting us with your care. I have a high suspicion that your left wrist pain is most likely due to gout I have started you on colchicine medication here in the emergency department for your gout flare and sent you home with some pain medications called Palacios. I have sent a prescription of a medication called indomethacin that you should take 3 times a day, every 8 hours for a gout flare for the next 7 days. As we discussed please have a very low threshold to come back to the emergency department if you are starting to notice any fevers or chills, worsening pain. Please call your primary care provider tomorrow to let them know about today's ER visit as well as your adjunct communications faculty member. I am prescribing a short course of narcotic pain medication for you. These are potentially dangerous and addictive medications that should be used carefully. These medications may constipate you. Take an lnud-zuy-qnucgyb stool softener (docusate) twice daily with plenty of water while taking these medications. If you go 24 hours without a bowel movement, take hunu-bva-dulbitd miralax, per package instructions. Do not drink or drive while taking these medications. If you received narcotic or sedating medications while in the emergency department, do not drive for 24 hours. Store this medication in a safe, secure place and out of reach of children. It is a violation of federal law to give or sell this medication to another person or to use in a manner other than prescribed. The ED will not refill narcotic prescriptions, including prescriptions lost or stolen. To dispose of unwanted medications: 1. [facility] at [address] in [place] has a medication drop box. They accept prescription medications (in pill form) Sunday through Sunday 9:00 a.m. to 5:00 p.m. 2. The [facility] [employer] accepts prescription medications (in pill form only) for disposal year round. Call for more information. 3. Contact the [facility] for the next [facility] sponsored prescription drug collection event. , [phone], or [phone]; Note that many narcotic pain relievers also contain Tylenol/acetaminophen. Please ensure that your total dose of acetaminophen from all sources does not exceed 3 g (3000 mg) per day. Forms: PCP List Discharge Date/Time: 08/19/23 22:28
[2023-08-19] MEDS: ONDANSETRON ODT 4 MG TABLET TL STA (21:47)
[2023-08-19] MEDS: HYDROcod/ACET 5/325 Prepack 4 PO STA (21:47)
[2023-08-19] MEDS: COLCHICINE 0.6 MG TABLET PO ONE (21:47)
[2023-08-19] MEDS: COLCHICINE 0.6 MG TABLET PO STA (22:22)
[2023-08-19] MEDS: INDOMETHACIN 25 MG CAPSULE PO STA (22:23)
[2023-08-19 22:32] VITALS: BP 138/88; O2SAT 94
[2023-08-20] MEDS ORDERED: COLCHICINE 0.6 MG TABLET PO SCH (09:00)
== END 2023-08-19 22:28 | disposition home or self-care (01) ==
LOC: ED 17:23
DX: M10.9 Gout, unspecified (principal); I10 Essential (primary) hypertension; J44.9 Chronic obstructive pulmonary disease, unspecified; M06.9 Rheumatoid arthritis, unspecified; Z79.899 Other long term (current) drug therapy
CPT/HCPCS: 20600; 36415; 73100; 73120; 80053; 83690; 83735; 84145; 84550; 85025; 96374; 99284; A9270; Q0162

== ENCOUNTER 2023-08-20 18:50 | Emergency (ER) | payer MEDICARE, MEDICAID ==
--- NOTE | 2023-08-20 19:42 | ED Physician Documentation ---
PD HPI UPPER EXT INJURY - History obtained from History obtained from: Patient - Stated complaint Stated Complaint: L HAND PX - Chief complaint Chief Complaint: Ext Problem - Additonal information Additional information: He has a history of psoriatic arthritis, not currently on any immunomodulating therapies. He said 2 weeks of progressive left hand pain. There was no trauma. He was seen by my partner yesterday and it looks as though he had x-rays of the wrist and hand which were negative. And he had an attempt at arthrocentesis of the wrist joint which was unsuccessful. (I am basing this on the patient's history as the nurse practitioner's notes are not complete. He denies fevers or chills. The pain is unbearable though. (Jayesh Cruz) PAST MEDICAL HISTORY - Past Medical History Past Medical History: Yes Cardiovascular: Hypertension Respiratory: COPD, Tuberculosis Endocrine/Autoimmune: None GI: Chronic constipation, Other : None HEENT: Chronic hearing loss Psych: None Musculoskeletal: Osteoarthritis, Rheumatoid arthritis, Other Derm: Psoriasis - Past Surgical History Past Surgical History: No - Social History Does the pt smoke?: No Smoking Status: Never smoker Does the pt drink ETOH?: No Does the pt have substance abuse?: No - Immunizations Immunizations are current?: Yes - POLST Patient has POLST: No - Present Medications Home Medications: Ambulatory Orders Medication Instructions Recorded Confirmed Acetaminophen [Tylenol] 650 mg PO Q4HR PRN 30 Days #30 tab 02/22/23 05/17/23 Fluticasone/Vilanterol [Breo 1 each IH DAILY #1 02/22/23 05/17/23 Ellipta 200-25 Mcg Inhalr] lisinopriL [Zestril] 20 mg PO DAILY #30 tab 02/22/23 05/17/23 Indomethacin [Indocin] 50 mg PO TID 7 Days #42 cap 08/19/23 Sulfamethox/Trimeth 800/160 1 each PO BID #14 tablet 08/20/23 [Bactrim Ds 800/160] cephALEXin [Keflex] 500 mg PO Q6H #28 cap 08/20/23 predniSONE [Deltasone] 10 mg PO [id number] #42 tab 08/20/23 Oxycodone HCl/Acetaminophen 1 - 2 tab PO Q4H PRN #20 tab 08/21/23 [Oxycodone-Acetaminophen 5-325] - Allergies Allergies/Adverse Reactions: Allergies Allergy/AdvReac Type Severity Reaction Status Date / Time latex Allergy Unknown Verified 08/21/23 06:07 pollen extracts Allergy Respiratory Verified 08/21/23 06:07 Opioids - Morphine Analogues AdvReac Mild Nausea Verified 08/21/23 06:07 PD ED PE NORMAL - Vitals Vital signs reviewed: Yes - General General: Alert and oriented X 3, No acute distress - Extremities Extremities: Other (Focused examination of the left upper extremity demonstrates very significant edema of the entirety of the left hand with swelling of all the digits, the palmar and dorsal surface. There is some warmth. Not much redness. He is kind of diffusely tender, the area of maximum tenderness @ 3rd MCP) - Neuro Neuro: Alert and oriented X 3 Results - Vitals Vitals: Vital Signs - 24 hr 08/20/23 08/20/23 08/20/23 19:05 19:44 21:23 Temperature 36.7 C 37.3 C Heart Rate 78 64 64 Respiratory 20 16 16 Rate Blood Pressure 137/69 H 147/93 H 150/91 H O2 Saturation 95 95 96 08/20/23 23:03 Temperature Heart Rate 64 Respiratory 16 Rate Blood Pressure 147/88 H O2 Saturation 97 Oxygen O2 Source Room air - Labs Labs: Laboratory Tests 08/20/23 08/20/23 08/20/23 20:20 20:20 20:20 WBC 10.3 RBC 5.11 Hgb 14.4 Hct 45.5 MCV 89.0 MCH 28.2 MCHC 31.6 L RDW 15.1 H Plt Count 263 MPV 10.4 Neut # (Auto) 7.1 H Lymph # (Auto) 1.7 Heard # (Auto) 1.0 Eos # (Auto) 0.5 Baso # (Auto) 0.0 Absolute Nucleated RBC 0.00 Nucleated RBC % 0.0 ESR 14 Sodium 138 Potassium 4.2 Chloride 106 Carbon Dioxide 27 Anion Gap 5.0 L BUN 15 Creatinine 0.8 Estimated GFR (MDRD) 96 Glucose 142 H Lactic Acid Calcium 9.3 Total Bilirubin 0.5 AST 20 ALT 20 Alkaline Phosphatase 69 C-Reactive Protein 3.5 H Total Protein 7.3 Albumin 4.0 Globulin 3.3 Albumin/Globulin Ratio 1.2 08/20/23 20:20 WBC RBC Hgb Hct MCV MCH MCHC RDW Plt Count MPV Neut # (Auto) Lymph # (Auto) Heard # (Auto) Eos # (Auto) Baso # (Auto) Absolute Nucleated RBC Nucleated RBC % ESR Sodium Potassium Chloride Carbon Dioxide Anion Gap BUN Creatinine Estimated GFR (MDRD) Glucose Lactic Acid 0.8 Calcium Total Bilirubin AST ALT Alkaline Phosphatase C-Reactive Protein Total Protein Albumin Globulin Albumin/Globulin Ratio PD Medical Decision Making - ED course ED course: Emiliano note: The patient was signed out to me at change of shift, pending results of CT scan of his left hand after returning to the emergency department with continued swelling and pain and having not filled his prescription for meds from yesterday. The patient had a normal white blood cell count and no erythema of the hand. He reported to me that he had been off of his immune modulators for his psoriatic arthritis, secondary to diverticulitis for which she was treated some weeks ago. He stated that he has an appointment coming up with his laundry equipment operator later this week. The patient was afebrile and his CT scan showed possible cellulitis but no evidence of necrotizing fasciitis or fluid collection. I examined the patient's hand and found him to be neurovascularly intact. The patient was counseled regarding the need to elevate his hand. I have given him antibiotics in the emergency department for the possibility of cellulitis as well as have given him a prescription for the same, plus steroids. I have given him a prepack of oxycodone from the emergency department and have advised him to take 1 to 2 tablets every 4 hours. The patient has been given a second dose of Dilaudid prior to discharge. We have discussed the usual indications for return including development of redness spreading up his arm or fever. Final impression: 1. History of psoriasis 2. Acute hand pain and swelling 3. Cellulitis Disposition: Discharged home in stable and improved condition. (Jen Cummings) Care to Dr. Cummings at [address] shift change [address] At this point given his labs with a white count of 10, ESR of 14, CRP of 3.5, and normal sodium I have a low suspicion for NSTI but that is on the differential. It does not seem like gout though either, question of some sort of inflammatory process related to his psoriatic arthritis? Steroids should be considered. (Jayesh Cruz) Departure - Departure Disposition: 01 Home, Self Care Clinical Impression: Left hand pain Cellulitis Qualifiers: Site of cellulitis: extremity Site of cellulitis of extremity: upper extremity Laterality: left Qualified Code(s): L03.114 - Cellulitis of left upper limb Condition: Stable Instructions: ED Infec Skin Cellulitis Prescriptions: Sulfamethox/Trimeth 800/160 [Bactrim Ds 800/160] 1 each PO BID #14 tablet predniSONE [Deltasone] 10 mg PO [id number] #42 tab cephALEXin [Keflex] 500 mg PO Q6H #28 cap Comments: Your laboratory studies overall look fairly good. Your CT scan shows some swelling and the appearance of some possible infection but not a severe infection. Because of the possibility of infection, we have started you on antibiotics. Most of the swelling is likely due to an inflammatory reaction in your hand from either gout or infection or both. What ever the case, we will have you take antibiotics for the next week to be sure that we have addressed the possibility of infection. Will also give you a course of steroids to help bring some the inflammation down. You may continue the indomethacin that you have been taking for gout as this is a good anti-inflammatory as well. Please follow-up with your primary care physician as needed. If you find that you are developing increasing swelling over the next few days despite antibiotics, or if you develop redness that is spreading progressively up your arm, please return to the emergency department for reevaluation. A prescription for the antibiotics and steroids have been electronically transmitted to the [facility] pharmacy in [place], your pharmacy of choice on record. Please pick this up first thing in the morning and begin taking the rest of your course. Forms: PCP List Discharge Date/Time: 08/21/23 00:35
[2023-08-20 20:25] LABS: BASOPHILS % (AUTO) 0.3 %; EOSINOPHILS # (AUTO) 0.5 10^3/uL (0.0-0.7); EOSINOPHILS % (AUTO) 4.6 %; HCT - HEMATOCRIT 45.5 % (42.0-52.0); HGB - HEMOGLOBIN 14.4 g/dL (14.0-18.0); LYMPHOCYTES # (AUTO) 1.7 10^3/uL (1.5-3.5); LYMPHOCYTES % (AUTO) 16.6 %; MEAN CORPUSCULAR HEMOGLOBIN 28.2 pg (27.0-31.0); MEAN CORPUSCULAR HGB CONC 31.6 g/dL (32.0-36.0); MEAN PLATELET VOLUME 10.4 fL (7.4-11.4); MONOCYTES % (AUTO) 9.2 %; NEUTROPHILS # (AUTO) 7.1 10^3/uL (1.5-6.6); NEUTROPHILS % (AUTO) 68.8 %; PLT - PLATELET COUNT 263 10^3/uL (130-450); RED BLOOD COUNT 5.11 10^6/uL (4.70-6.10); RED CELL DISTRIBUTION WIDTH 15.1 % (12.0-15.0); WHITE BLOOD COUNT 10.3 x10^3/uL (4.8-10.8)
[2023-08-20] MEDS: HYDROmorphone 1 MG/ML CARPUJECT IVP STA ×2 (20:25→23:01)
[2023-08-20 20:42] LABS: ALBUMIN/GLOBULIN RATIO 1.2 (1.0-2.2); BILIRUBIN,TOTAL 0.5 mg/dL (0.2-1.0); CALCIUM 9.3 mg/dL (8.5-10.3); CREATININE 0.8 mg/dL (0.6-1.3); CRP - C-REACTIVE PROTEIN 3.5 mg/dL (<0.5); POTASSIUM 4.2 mmol/L (3.5-4.5); TOTAL PROTEIN 7.3 g/dL (6.4-8.9)
[2023-08-20] MEDS ORDERED: iohexoL-300 100 ML VIAL ONE (21:12)
[2023-08-20] MEDS: iohexoL-300 100 ML VIAL IVP ONE (22:34)
[2023-08-20 23:12] VITALS: BP 147/88; O2SAT 97
--- NOTE | 2023-08-20 23:36 | CT Report ---
PROCEDURE: Upper Extremity LT W INDICATIONS: iv only, hand pain, ?nsti TECHNIQUE: After administration of contrast 3 mm axial sections acquired of the left forearm and hand, with hudson nal and sagittal reformats. For radiation dose reduction, the following was used: automated exposur e control, adjustment of mA and/or kV according to patient size. CONTRAST: Omni 300, 100mls COMPARISON: Radiographs of the left hand and wrist.. FINDINGS: Image quality: Diagnostic. Bones: No suspicious osseous lesions. No acute fracture. Degenerative changes of the left wrist was pronounced over the first carpometacarpal and triscaphe joints. No suspicious osseous erosion. No abn ormal periosteal reaction identified. Alignment appears anatomic throughout. Soft tissues: Diffuse soft tissue swelling of the imaged distal left forearm and left hand with mild overlying skin thickening. No evidence for abnormal enhancement or organized fluid collection. No clemens spicious mass lesion. Visualized vascular structures appear opacified. IMPRESSION: Diffuse soft tissue swelling of the distal left forearm and left hand with mild overlyin g skin thickening suggestive of possible cellulitis. No evidence for organized fluid collection or so ft tissue gas. No acute osseous abnormalities. Moderate degenerative changes of the wrist. Reviewed by: Orlando Gonzalez MD on 08/20/2023 11:35 PM PDT Approved by: Orlando Gonzalez MD on 08/20/2023 11:35 PM PDT Station ID: [id number]
[2023-08-20] MEDS: cephALEXin 250 MG CAPSULE PO STA (23:56)
[2023-08-20] MEDS: SULFAMETH/TRIMETH DS 800/160 MG TABLET PO STA (23:56)
[2023-08-21] MEDS: oxyCODONE/ACET 5/325 Prepack 4 PO STA (00:28)
== END 2023-08-21 00:35 | disposition home or self-care (01) ==
LOC: ED 18:50
DX: L03.114 Cellulitis of left upper limb (principal); L40.50 Arthropathic psoriasis, unspecified
CPT/HCPCS: 36415; 80053; 83605; 85025; 85651; 86140; 96374; 96376; 99284

== ENCOUNTER 2023-08-21 05:54 | Emergency (ER) | payer MEDICARE, MEDICAID ==
--- NOTE | 2023-08-21 06:10 | ED Physician Documentation ---
History of Present Illness - Stated complaint Stated Complaint: L HAND PX - Chief complaint Chief Complaint: Ext Problem - History obtained from History obtained from: Patient - Additonal information Additional information: The patient returns to the emergency department chief complaint of left hand pain and swelling. The patient was just seen here last night for the same thing and was discharged by me after CT scan showed possible cellulitis but otherwise unremarkable. The patient had good pulses and sensation at that time. He had notable swelling of his left hand but no erythema. He states that he went home and read the package insert for the prepack of oxycodone that I gave him and was concerned that he might overdose so instead of taking up to 2 oxycodone every 4 hours as I directed him to do, he only took 1 tablet the entire time since he was discharged hours ago. He states that "it just hurts all the time and I cannot take it". No fevers or chills. No other complaints at this time. PD PAST MEDICAL HISTORY - Past Medical History Past Medical History: Yes Cardiovascular: Hypertension Respiratory: COPD, Tuberculosis Endocrine/Autoimmune: None GI: Chronic constipation, Other : None HEENT: Chronic hearing loss Psych: None Musculoskeletal: Osteoarthritis, Rheumatoid arthritis, Other Derm: Psoriasis - Past Surgical History Past Surgical History: No - Present Medications Home Medications: Ambulatory Orders Medication Instructions Recorded Confirmed Acetaminophen [Tylenol] 650 mg PO Q4HR PRN 30 Days #30 tab 02/22/23 05/17/23 Fluticasone/Vilanterol [Breo 1 each IH DAILY #1 02/22/23 05/17/23 Ellipta 200-25 Mcg Inhalr] lisinopriL [Zestril] 20 mg PO DAILY #30 tab 02/22/23 05/17/23 Indomethacin [Indocin] 50 mg PO TID 7 Days #42 cap 08/19/23 Sulfamethox/Trimeth 800/160 1 each PO BID #14 tablet 08/20/23 [Bactrim Ds 800/160] cephALEXin [Keflex] 500 mg PO Q6H #28 cap 08/20/23 predniSONE [Deltasone] 10 mg PO [id number] #42 tab 08/20/23 Oxycodone HCl/Acetaminophen 1 - 2 tab PO Q4H PRN #20 tab 08/21/23 [Oxycodone-Acetaminophen 5-325] - Allergies Allergies/Adverse Reactions: Allergies Allergy/AdvReac Type Severity Reaction Status Date / Time latex Allergy Unknown Verified 08/21/23 06:07 pollen extracts Allergy Respiratory Verified 08/21/23 06:07 Opioids - Morphine Analogues AdvReac Mild Nausea Verified 08/21/23 06:07 - Social History Does the pt smoke?: No Smoking Status: Never smoker Does the pt drink ETOH?: No Does the pt have substance abuse?: No - Immunizations Immunizations are current?: Yes - POLST Patient has POLST: No PD ED PE NORMAL - Vitals Vital signs reviewed: Yes - General General: No acute distress, Well developed/nourished, Other (Alert, grossly oriented, appropriate.) - HEENT HEENT: Atraumatic, EOMI, Moist mucous membranes - Neck Neck: Supple, no meningeal sign - Cardiac Cardiac: Strong equal pulses - Respiratory Respiratory: No respiratory distress - Derm Derm: Normal color, Warm and dry - Extremities Extremities: No deformity, Other (Notable edema of left hand globally, unchanged since last night when the patient was seen. The patient is noted to be consistently holding his hand in a downward/dependent position) - Neuro Neuro: No motor deficit, No sensory deficit - Psych Psych: Normal mood, Normal affect Results - Vitals Vitals: Oxygen O2 Source Room air PD Medical Decision Making - ED course Complexity details: reviewed old records, considered differential, d/w patient ED course: I had a berta discussion with this patient about the fact that he did not come even close to taking the amount of medication he was supposed to take to achieve pain control. I did discuss with him that he cannot keep coming back to the emergency department when after the first visit he did not fill his meds at all and after the second visit he did not take the pain medication at the doses that I prescribed in order for him to achieve pain control. The patient also has been allowing his hand to hang in a dependent position and when I discussed this with him he argues that it hurts if he holds it up. I have advised him that it is going to make the swelling worse and the pain and pressure worse in his hand if he keeps letting it hang down and I have admonished him that he needs to keep the hand up. There is no evidence of any progression or worsening of the pt's hand. His CT last night did not demonstrate any evidence of necrotizing fasciitis. The patient was given a dose of Dilaudid here in the emergency department, and discharged. We have discussed the usual indications for return. Departure - Departure Disposition: 01 Home, Self Care Clinical Impression: Pain in extremity Qualifiers: Extremity pain location: upper extremity Laterality: left Qualified Code(s): M79.602 - Pain in left arm Condition: Stable Instructions: ED Infec Skin Cellulitis Prescriptions: Oxycodone HCl/Acetaminophen [Oxycodone-Acetaminophen 5-325] 1 - 2 tab PO Q4H PRN #20 tab PRN Reason: Pain 5-7 Comments: You did not pick your first prescription up at the pharmacy and you did not take the pain medication that you were given last night as directed. Your medication will not help you if you are not taking it in the proper amounts or at all. We have given you 2 doses of pain medicine here in the emergency department and it is important that you do what you can to control your pain at home. This includes taking your medicines and keeping your hand propped up so that you are not letting all the swelling and pressure gather in the hand when it is hanging down. Your CT scan and labs were fairly reassuring and you have been started on antibiotics mainly as a precaution. You need to call your assessment nurse practitioner office today to see if they can see you any sooner. You also need to go to the [facility] in [place] this morning and cook pickled meat your prescriptions for antibiotics, steroids, and the pain medication. Forms: PCP List Discharge Date/Time: 08/21/23 07:34
[2023-08-21] MEDS: HYDROmorphone 1 MG/ML CARPUJECT IM STA ×2 (06:14→07:07)
[2023-08-21 07:34] VITALS: BP 126/78; O2SAT 91
== END 2023-08-21 07:34 | disposition home or self-care (01) ==
LOC: ED 05:54
DX: L03.114 Cellulitis of left upper limb (principal); L40.50 Arthropathic psoriasis, unspecified; T40.2X6A Underdosing of other opioids, initial encounter; Z91.128 Patient's intentional underdosing of medication regimen for other reason
CPT/HCPCS: 36415; 73201; 80053; 83605; 85025; 85651; 86140; 96372; 96374; 96376; 99283; 99284; A9270; J1170; Q9967

== ENCOUNTER 2023-10-25 08:00 | Outpatient (CLI) | payer MEDICARE, MEDICAID | END 2023-10-25 23:59 | disposition home or self-care (01) | LOC: LAB 08:00 | PROVIDERS: ATTEND Emergency Medicine | DX: R31.9 Hematuria, unspecified (principal) | CPT/HCPCS: 87086 ==